=== PATIENT | male | born 1955 | race Caucasian/White ===

== ENCOUNTER 2020-01-29 14:19 | Outpatient (CLI) | payer MEDICARE, SELFPAY ==
--- NOTE | 2020-01-29 15:00 | USCV_ITS ---
Alberto Trujillo Age: 64 Gender: M : 1955 Exam Date: 01/29/2020 15:03 Ordering Phys: Skyler Luna MD (Andy) ([email or web address] [place]) Technologist: Karon Arteaga Exam Location: [facility] [place]ication: CAROTID STENOSIS Risk Factors: Previous Vascular Surgery: Right Brachial BP: / Left Brachial BP: / Right Left Velocity (cm/s) Spectral Plaque Velocity (cm/s) Spectral Plaque Syst/Diast Broadening Syst/Diast Broadening 108.30/6.30 Prox CCA 91.50 / 14.30 97.00/ 9.90 Mid CCA 51.90 / 11.80 92.60/ 12.10 Distal CCA 44.00 / 10.50 58.50/ 8.50 Prox ICA 161.25/ 21.70 40.10/ 9.90 Mid ICA 152.30/ 23.30 79.80/ 12.60 Distal ICA 130.10/ 23.70 97.40 ECA 128.70 0.82 ICA/CCA 3.23 Antegrade Vertebral Antegrade 55.90/ 9.30 cm/s 58.70/ 10.10 cm/s Tri Subclavian Bi 120.9 208.7 0 0 CONCLUSIONS History of bilateral CEA Right ICA stenosis <50%. Left ICA stenosis 50-69%. Normal antegrade Doppler flow noted in the right vertebral artery. Normal antegrade Doppler flow noted in the left vertebral artery. Rafal Harp MD (Electronically Signed) Final Date: 29 January 2020 15:39 S
== END 2020-01-29 14:20 | disposition home or self-care (01) ==
LOC: RADWPI 14:24
PROVIDERS: Family Provider Nurse Practitioner Family; PCP Nurse Practitioner Family; Visit Provider Thoracic Surgery (Cardiothoracic Vascular Surgery)
DX: I65.23 Occlusion and stenosis of bilateral carotid arteries (principal)
CPT/HCPCS: 93880

== ENCOUNTER 2020-07-17 14:57 | Emergency (ER) | payer MEDICARE, MEDICAID, SELFPAY ==
[2020-07-17 15:14] VITALS: BP 148/80; PULSE 60; RESP 18; TEMP 37.1; O2SAT 97; BMI 37.5
--- NOTE | 2020-07-17 15:43 | XRR_ITS ---
PROCEDURE INFORMATION: Exam: XR Chest, 1 View Exam date and time: 07/17/2020 3:44 PM Age: 65 years old Clinical indication: Chest pain; Type not specified; Additional info: Cp TECHNIQUE: Imaging protocol: XR of the chest Views: 1 view. COMPARISON: CR Chest 2 views* [id number] 05/27/2019 9:02 AM FINDINGS: Lungs: No visible active interstitial or alveolar airspace disease. Pleural space: Unremarkable. No pleural effusion. No pneumothorax. Heart/Mediastinum: Cardiomegaly. Arteriosclerosis. Bones/joints: Age-appropriate degenerative disease of the visualized spine. Other findings: Heavy body habitus. XR/XR chest 1V portable [id number] IMPRESSION: No visible radiographic evidence of acute cardiopulmonary process.
--- NOTE | 2020-07-17 17:43 | ECG_ITS ---
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 Measurements Intervals [place] Rate: 70 P: MO: -1 QRS: 17 QRSD: 104 T: 61 QT: 492 QTc: 532 Interpretive Statements ATRIAL FIBRILLATION with PVC's or abberently conducted beats INDETERMINATE AXIS LOW QRS VOLTAGE IN PRECORDIAL LEADS INCOMPLETE RIGHT BUNDLE BRANCH BLOCK MODERATE ST DEPRESSION Compared to ECG 05/27/2019 08:33:11 Indeterminate axis now present Low QRS voltage now present Prolonged QT interval now present ST (T wave) deviation still present Electronically Signed On 07-18-2020 8:49:21 CDT by Evelin Deshpande M.D. [id number]
--- NOTE | 2020-07-17 17:43 | ED_ITS ---
Documented by User: Abeba Kendall MD 07/20/20 12:54 HPI - Chest Pain General: Chief Complaint: Chest Pain Stated Complaint: BACK PAIN, HEART ISSUES Time Seen by Provider: 07/17/20 17:16 History of Present Illness: HPI narrative: This patient is a 65-year-old male who comes in today with chest pain and back pain. He is also got chronic shortness of breath. He said the chest pain and back pain started this morning when he went out to walk his dog. He has had the pain off and on all day. It feels like when he said his prior [place]. He has had multiple stents put in. He was post to have another angiogram but had put it off for various reasons. He is not having chest pain currently during my exam. He has COPD and uses 2 L of oxygen at home daily. MD complaint: chest pain and chest heaviness Pertinent past history: coronary artery disease, prior [place] and [employer] Onset (ago): hour(s) (8) [facility] PFSH: Medical History (Updated 07/17/20 @ 18:53 by Saba Snyder MD) Alcohol abuse Anticoagulant long-term use Atrial fibrillation CAD (coronary artery disease) Cardiomyopathy Carotid stenosis, bilateral CKD (chronic kidney disease) COPD (chronic obstructive pulmonary disease) Dependence on continuous supplemental oxygen Diabetes HTN (hypertension) Obesity Peripheral arterial disease Tobacco abuse Surgical History S/P PTCA (percutaneous transluminal coronary angioplasty) Family History Mother CAD (coronary artery disease) Diabetes Father , AGE 82 CAD (coronary artery disease) Hypertension Social History Smoking and tobacco status: former smoker Quit status (tobacco): has quit using tobacco Former quit date comment: NOV 2019 Alcohol intake: current Alcohol type: beer Household members: spouse Marital status: Physical Exam Const: COMMON NORMALS: no acute distress, patient oriented x3, no limitations and alert GENERAL APPEARANCE: cooperative and comfortable HENMT: HEAD & SCALP: normal to inspection FACE & SINUS: normal facial exam Eye: GENERAL EYE: appearance normal, both eyes and all related structures Neck/C-Spine: COMMON NORMALS: supple, no meningeal signs and no JVD Chest: COMMONS NORMALS: normal inspection of the chest Resp: COMMON NORMALS: normal respiratory effort, No use of accessory muscles and clear to auscultation bilaterally AUSCULTATION: clear to auscultation bilaterally Cardio: COMMON NORMALS: no JVD, regular rate, regular rhythm and No murmurs present (Cardio) RATE: regular rate RHYTHM: regular rhythm GI: COMMON NORMALS: Normal to inspection, nondistended, normoactive bowel sounds present, Soft to palpation and non-tender INSPECTION: Yes normal to inspection AUSCULTATION: Yes normoactive bowel sounds PALPATION: Yes Soft to palpation Back/Pelvis: COMMON NORMALS: thoracic and lumbar spine normal to inspection Extremity: COMMON NORMALS: normal to inspection Neuro: COMMON NORMALS: patient oriented x3, moves all extremities, no focal motor deficits and no sensory deficits noted SENSORIUM/ORIENTATION: Yes alert MENINGEAL SIGNS: Yes no meningeal signs Psych: COMMON NORMALS: mental status grossly normal, cooperative and normal affect Skin: COMMON NORMALS: no rashes or lesions noted and turgor normal GENERAL SKIN EXAM: no rashes or lesions noted and turgor normal Course Vital Signs: Vital signs: Vital Signs Temperature 98.7 F 07/17/20 15:14 Pulse Rate 81 07/17/20 19:08 Respiratory Rate 18 07/17/20 15:14 Blood Pressure 157/89 07/17/20 19:08 Pulse Oximetry 92 07/17/20 19:08 MDM - Chest Pain Lab Data: Labs: Lab Results 07/17/20 07/17/20 Range/Units 17:55 17:55 WBC 8.3 (4.0-10.0) 10^3/ uL RBC 4.28 (4.1-5.3) 10^6/u L Hgb 13.7 (11.7-16.6) g/dL Hct 38.8 L (42.0-52.0) % MCV 90.7 (80-94) fL MCH 32.0 (28.0-34.0) pg MCHC 35.3 (30.0-36.0) g/dL RDW 13.0 (12.1-15.1) % Plt Count 203 (130-400) 10^3/c mm MPV 9.3 (7.4-10.4) fL Neut % (Auto) 83.6 % Lymph % (Auto) 6.9 % Faulkner % (Auto) 8.1 % Eos % (Auto) 0.4 % Baso % (Auto) 0.2 % Neut # (Auto) 6.95 (1.8-7.7) 10^3/u L Lymph # (Auto) 0.6 L (0.8-4.8) 10^3/u L Faulkner # (Auto) 0.7 (0.2-0.9) 10^3/u L Eos # (Auto) 0.0 (0.0-0.8) 10^3/u L Baso # (Auto) 0.0 (0.0-0.1) 10^3/u L Nucleated RBC % (a uto) 0 % Nucleated RBCs # 0.0 /100WBC Troponin T Baselin e 16 H (0-15) ng/L Discharge Plan Discharge Patient Disposition: Left Against Medical Advice Clinical Impression: Chest pain Condition: Stable Prescriptions: No Action warfarin 5 mg tablet 5 mg PO DAILY RF: 0 metoprolol succinate 25 mg tablet extended release 24 hr 25 mg PO DAILY RF: 0 hydralazine 50 mg tablet 50 mg PO TID RF: 0 diltiazem HCl [Taztia XT] 360 mg capsule,extended release 24 hr 360 mg PO DAILY RF: 0 pantoprazole 40 mg tablet,delayed release (DR/EC) 40 mg PO DAILY RF: 0 aspirin [Aspir-81] 81 mg tablet,delayed release (DR/EC) 81 mg PO DAILY RF: 0 nitroglycerin [Nitrostat] 0.4 mg tablet, sublingual 0.4 mg SUBLINGUAL Q5M PRN (Reason: CHEST PAINS) RF: 0 doxazosin 2 mg tablet 2 mg PO DAILY Qty: 90 RF: 3 tamsulosin 0.4 mg capsule 0.4 mg PO BID Qty: 180 RF: 3 triamcinolone acetonide 0.1 % cream 1 applic TOPICAL BID Qty: 453.6 RF: 0 lisinopril 40 mg tablet 40 mg PO DAILY Qty: 90 RF: 0 Spiriva with HandiHaler 18 mcg capsule, w/inhalation device 1 cap INHALATION DAILY Qty: 90 RF: 0 torsemide 20 mg tablet 20 mg PO BID RF: 0 Discharge Orders: Discharge Order (Routine); Ordered 07/17/20 Ordered By: Saba Snyder Referrals: Chantelle Vides FNP [Primary Care Provider] - 1-3 days Discharge Diet: Advance as tolerated Discharge Activity: Resume usual activity Patient Instructions: Chest Pain (ED) Discharge Date/Time: 07/17/20 19:08 Coding Level of Care Code ED Quality Control Lead for Chg Fwd Exam Comprehensive Documented by User: Saba Snyder MD 07/17/20 18:57 HPI - Chest Pain General: Chief Complaint: Chest Pain Stated Complaint: BACK PAIN, HEART ISSUES Time Seen by Provider: 07/17/20 17:16 PFSH ED PFSH: Medical History (Updated 07/17/20 @ 18:53 by Saba Snyder MD) Alcohol abuse Anticoagulant long-term use Atrial fibrillation CAD (coronary artery disease) Cardiomyopathy Carotid stenosis, bilateral CKD (chronic kidney disease) COPD (chronic obstructive pulmonary disease) Dependence on continuous supplemental oxygen Diabetes HTN (hypertension) Obesity Peripheral arterial disease Tobacco abuse Surgical History S/P PTCA (percutaneous transluminal coronary angioplasty) Family History Mother CAD (coronary artery disease) Diabetes Father , AGE 82 CAD (coronary artery disease) Hypertension Social History Smoking and tobacco status: former smoker Quit status (tobacco): has quit using tobacco Former quit date comment: NOV 2019 Alcohol intake: current Alcohol type: beer Household members: spouse Marital status: Course Vital Signs: Vital signs: Vital Signs Temperature 98.7 F 07/17/20 15:14 Pulse Rate 81 07/17/20 19:08 Respiratory Rate 18 07/17/20 15:14 Blood Pressure 157/89 07/17/20 19:08 Pulse Oximetry 92 07/17/20 19:08 MDM - Chest Pain MDM Narrative: Medical decision making narrative: Patient presents here with chest pain that is resolved here. Patient has a strong history and I strongly recommended him staying. Patient after first troponin he states he feels fine and he said the waiting room and does not want to stay here any longer. He states his pain is gone he does not want to be admitted to the hospital. He refuses to stay for 2-hour troponin as well. He has medical decision-making capacity and understands the risk eating a heart attack and . I spoke to his as well and patient still would like to sign AMA. I informed him he is to follow-up with Dr. Carrasco as scheduled next Monday and he is return if his pain worsens or he changes his mind. He understands and agrees to plan. Lab Data: Labs: Lab Results 07/17/20 07/17/20 Range/Units 17:55 17:55 WBC 8.3 (4.0-10.0) 10^3/ uL RBC 4.28 (4.1-5.3) 10^6/u L Hgb 13.7 (11.7-16.6) g/dL Hct 38.8 L (42.0-52.0) % MCV 90.7 (80-94) fL MCH 32.0 (28.0-34.0) pg MCHC 35.3 (30.0-36.0) g/dL RDW 13.0 (12.1-15.1) % Plt Count 203 (130-400) 10^3/c mm MPV 9.3 (7.4-10.4) fL Neut % (Auto) 83.6 % Lymph % (Auto) 6.9 % Fa[place] % (Auto) 8.1 % Eos % (Auto) 0.4 % Baso % (Auto) 0.2 % Neut # (Auto) 6.95 (1.8-7.7) 10^3/u L Lymph # (Auto) 0.6 L (0.8-4.8) 10^3/u L [place]ner # (Auto) 0.7 (0.2-0.9) 10^3/u L Eos # (Auto) 0.0 (0.0-0.8) 10^3/u L Baso # (Auto) 0.0 (0.0-0.1) 10^3/u L Nucleated RBC % (a uto) 0 % Nucleated RBCs # 0.0 /100WBC Troponin T Baselin e 16 H (0-15) ng/L Imaging Data^: CXR: Attestation: I personally reviewed and interpreted this imaging study as follows: Radiologist's impression: [address] [place] [address] XRay Report Signed Patient: Alberto Trujillo JR Unit #: [id number] : 1955 Acct#:[id number] Age/Sex: 65 / M ADM Date: 07/17/20 Loc: ER Room/Bed: Attending Dr: Ordering Provider/Ordering MD: Matty Darden Sr, ETL BI DEVELOPER-NNEKA Date of Service: 07/17/20 Procedure(s): XR chest 1V portable [id number] Accession Number(s): [id number] Report Number: [id number] PROCEDURE INFORMATION: Exam: XR Chest, 1 View Exam date and time: 07/17/2020 3:44 PM Age: 65 years old Clinical indication: Chest pain; Type not specified; Additional info: Cp TECHNIQUE: Imaging protocol: XR of the chest Views: 1 view. COMPARISON: CR Chest 2 views* [id number] 05/27/2019 9:02 AM FINDINGS: Lungs: No visible active interstitial or alveolar airspace disease. Pleural space: Unremarkable. No pleural effusion. No pneumothorax. Heart/Mediastinum: Cardiomegaly. Arteriosclerosis. Bones/joints: Age-appropriate degenerative disease of the visualized spine. EKG Data^: EKG 1: Attestation: I personally reviewed and interpreted this EKG as follows: EKG interpretation date: 07/17/20 EKG interpretation time: 18:25 Interpretation: afib hr [address] or t wave abnormalities Discharge Plan Discharge Patient Disposition: Left Against Medical Advice Clinical Impression: Chest pain Condition: Stable Prescriptions: No Action warfarin 5 mg tablet 5 mg PO DAILY RF: 0 metoprolol succinate 25 mg tablet extended release 24 hr 25 mg PO DAILY RF: 0 hydralazine 50 mg tablet 50 mg PO TID RF: 0 diltiazem HCl [Taztia XT] 360 mg capsule,extended release 24 hr 360 mg PO DAILY RF: 0 pantoprazole 40 mg tablet,delayed release (DR/EC) 40 mg PO DAILY RF: 0 aspirin [Aspir-81] 81 mg tablet,delayed release (DR/EC) 81 mg PO DAILY RF: 0 nitroglycerin [Nitrostat] 0.4 mg tablet, sublingual 0.4 mg SUBLINGUAL Q5M PRN (Reason: CHEST PAINS) RF: 0 doxazosin 2 mg tablet 2 mg PO DAILY Qty: 90 RF: 3 tamsulosin 0.4 mg capsule 0.4 mg PO BID Qty: 180 RF: 3 triamcinolone acetonide 0.1 % cream 1 applic TOPICAL BID Qty: 453.6 RF: 0 lisinopril 40 mg tablet 40 mg PO DAILY Qty: 90 RF: 0 Spiriva with HandiHaler 18 mcg capsule, w/inhalation device 1 cap INHALATION DAILY Qty: 90 RF: 0 torsemide 20 mg tablet 20 mg PO BID RF: 0 Discharge Orders: Discharge Order (Routine); Ordered 07/17/20 Ordered By: Saab Snyder Referrals: Chantelle Vides FNP [Primary Care Provider] - 1-3 days Discharge Diet: Advance as tolerated Discharge Activity: Resume usual activity Patient Instructions: Chest Pain (ED) Discharge Date/Time: 07/17/20 19:08 Coding Level of Care Code ED Quality Control Lead for Lettyg Fwd Exam Comprehensive
[2020-07-17 18:00] VITALS: BP 135/78; PULSE 63; O2SAT 96
[2020-07-17 18:08] LABS: Basophils % 0.2 %; Eosinophils % 0.4 %; Hematocrit 38.8 % (42.0-52.0); Hemoglobin 13.7 g/dL (11.7-16.6); Lymphocytes # 0.6 10^3/uL (0.8-4.8); Lymphocytes % 6.9 %; Mean Corpuscular HGB Conc 35.3 g/dL (30.0-36.0); Mean Corpuscular Volume 90.7 fL (80-94); Mean Platelet Volume 9.3 fL (7.4-10.4); Monocytes # 0.7 10^3/uL (0.2-0.9); Monocytes % 8.1 %; Neutrophils # 6.95 10^3/uL (1.8-7.7); Neutrophils % 83.6 %; Nucleated Red Blood Cells % 0 %; Platelet Count 203 10^3/cmm (130-400); Red Blood Count 4.28 10^6/uL (4.1-5.3); White Blood Count 8.3 10^3/uL (4.0-10.0)
[2020-07-17 18:30] LABS: Troponin(5th) Baseline 16 ng/L (0-15)
[2020-07-17 18:42] VITALS: BP 157/89; PULSE 64; O2SAT 96
[2020-07-17 19:08] VITALS: BP 157/89; PULSE 81; O2SAT 92
== END 2020-07-17 19:08 | disposition left against medical advice (07) ==
PROVIDERS: Nurse Practitioner Family; Emergency Provider Emergency Medicine; Family Provider Nurse Practitioner Family; PCP Nurse Practitioner Family
DX: R07.9 Chest pain, unspecified (principal); Z53.21 Procedure and treatment not carried out due to patient leaving prior to being seen by health care provider; Z79.82 Long term (current) use of aspirin; Z79.01 Long term (current) use of anticoagulants; Z87.891 Personal history of nicotine dependence; I25.10 Atherosclerotic heart disease of native coronary artery without angina pectoris; I48.91 Unspecified atrial fibrillation; J44.9 Chronic obstructive pulmonary disease, unspecified; E11.9 Type 2 diabetes mellitus without complications; I10 Essential (primary) hypertension; Z99.81 Dependence on supplemental oxygen
CPT/HCPCS: 12345; 71045; 84484; 85025; 93005; 99282

== ENCOUNTER 2020-08-20 09:52 | Outpatient (CLI) | payer MEDICARE, MEDICAID, SELFPAY ==
--- NOTE | 2020-08-20 10:15 | US_ITS ---
WS: [id number] Gallbladder and right upper quadrant ultrasound, 08/20/2020 Clinical Data: RUQ tenderness Comparison: None. Findings: The gallbladder shows no sludge or stone. Because the patient ate breakfast, the gallbladder appears small The wall measures 0.3 cm with no pericholecystic fluid. The common bile duct is 0.6 cm and there are no intrahepatic ductal abnormalities. Liver shows no cysts, masses or dilated intrahepatic ducts. The liver measures 20.82 cm and shows fat ty infiltration. The pancreas is not obscured by overlying bowel gas and no cyst, pseudocyst, or evidence of pancreati tis is noted. Right kidney measures 13.6 cm and no cyst, masses or hydronephrosis can be seen. The aorta and inferior vena cava show no vascular abnormalities. US/US gall bladder [id number] Impression: 1. Gallbladder is small because the patient ate breakfast and the gallbladder w all is at the upper limits of normal because of the gallbladder contraction. 2. Hepatomegaly with fatty infiltration of liver.
== END 2020-08-20 09:53 | disposition home or self-care (01) ==
PROVIDERS: PCP Nurse Practitioner Family; Visit Provider Nurse Practitioner Family
DX: R10.811 Right upper quadrant abdominal tenderness (principal); R16.0 Hepatomegaly, not elsewhere classified; K76.0 Fatty (change of) liver, not elsewhere classified
CPT/HCPCS: 76705

== ENCOUNTER → 2020-09-09 10:18 | Outpatient (BNVA) | payer MEDICARE, MEDICAID, SELFPAY | PROVIDERS: PCP Nurse Practitioner Family; Visit Provider Internal Medicine | DX: K70.0 Alcoholic fatty liver (principal); E11.9 Type 2 diabetes mellitus without complications; K75.81 Nonalcoholic steatohepatitis (NASH) | CPT/HCPCS: 80053; 80061; 82105; 83036 ==

== ENCOUNTER → 2020-12-28 11:32 | Outpatient (BNVA) | payer MEDICARE, MEDICAID, SELFPAY | PROVIDERS: PCP Nurse Practitioner Family; Visit Provider Nurse Practitioner Family | DX: E11.9 Type 2 diabetes mellitus without complications (principal); I10 Essential (primary) hypertension | CPT/HCPCS: 80053; 83036 ==

== ENCOUNTER → 2021-02-04 11:16 | Outpatient (BNVA) | payer MEDICARE, MEDICAID, SELFPAY | PROVIDERS: PCP Nurse Practitioner Family; Visit Provider Nurse Practitioner Family | DX: I10 Essential (primary) hypertension (principal); J44.0 Chronic obstructive pulmonary disease with (acute) lower respiratory infection; E87.1 Hypo-osmolality and hyponatremia | CPT/HCPCS: 80053 ==

== ENCOUNTER → 2021-02-24 10:40 | Outpatient (BNVA) | payer MEDICARE, MEDICAID, SELFPAY | PROVIDERS: PCP Nurse Practitioner Family; Visit Provider Internal Medicine | DX: E87.1 Hypo-osmolality and hyponatremia (principal); R06.02 Shortness of breath; R07.9 Chest pain, unspecified | CPT/HCPCS: 80053; 85025; 85610; 87635 ==

== ENCOUNTER 2021-03-05 10:34 | Day surgery (SDC) | payer MEDICARE, MEDICAID, SELFPAY ==
[2021-03-05] VITALS (56 sets, daily range): BP systolic 129–188; BP diastolic 73–114; PULSE 49–102; RESP 9–20; TEMP 36.7–37.1; O2SAT 89–98; BMI 34.7
--- NOTE | 2021-03-05 11:00 | XACV_ITS ---
Exam Room: [facility] Ht: 175 cm Wt: 107 kg BSA: 2.32 m2 Gender: Male : 1955 Any Known Allergies: Other Exam Priority: Routine Procedure(s): Procedure Description: Diagnostic procedure Procedure Description: PCI procedure Procedure Description: Drug Eluting Coronary Stent Procedure Description: PTCA Procedure Description: Coronary Atherectomy Procedure Description: Miscellaneous Procedure Description: ACT Procedure Description: Coronary Angiography Diagnostic Cath Status: Elective Diagnostic Findings * Left Main has no significant disease. * Circumflex has no significant disease. * Right Coronary Artery has patent prior stents. * Proximal to Mid Left Anterior Descending: severe, heavily calcified 90% stenosis, DAVID: 3 flow. * Coronary angiography shows right dominance. PCI Status: Elective PCI Indication: Other Interventional Findings * Procedure details: We engaged left main artery with a EBU 3.5 guide catheter. IV heparin was administered to maintain an ACT above 250 seconds. A 0.014 run-through guidewire was used to cross the stenosis and was placed in distal vessel. We used a [employer] microcatheter to switch the runthrough guidewire to Viper wire. This was followed by performing multiple runs of orbital artrectomy. We then again switched the viper wire to runthrough guidewire through teleport microcatheter. A 2.75x 15mm semi compliant balloon was used to pre dilate the stenosis. This was followed by placement of a 3.5x22mm Resolute gabi ILSA. We then post dilated the stent using a 3.5x12mm NC balloon. At this time final angiogram was performed that showed excellent stent expansion, DAVID-3 flow and no residual stenosis. Guidewire and guide catheter were removed. Patient left the Signal Tester in a stable condition. * Mid Left Anterior Descendin% stenosis treated with a AB TREK 2.75X15 RX BALLOON, DAVID R GABI 3.5X22 ILSA, and DAVID GILL EUPHORA RX [id number] BALLOON. 0% residual stenosis, DAVID: 3 flow. Conclusions 1. There is severe coronary artery disease with severe, heavily calcified proximal to mid LAD stenosis s/p succsessful revascularization with ILSA x 1 after coronary orbital arthrectomy. 2. Mid Left Anterior Descending was treated with a Balloon, Drug Eluting Stent, and Balloon. Recommendations * Admit to CSU. * Aspirin and Plavix for atleast 1 year. * High intensity statin therapy. * Outpatient cardiology follow up. Interventional RX Recommendation: PCI w/o planned CABG Diagnostic RX Recommendation: PCI w/o planned CABG Anticoagulation: Heparin Pressures Phase:Rest AO : 198 / 184 ( 176 ) @ 12:58:00 PM 123 / 107 ( 115 ) @ 1:00:00 PM 167 / 80 ( 68 ) @ 1:03:00 PM 172 / 104 ( 106 ) @ 1:11:00 PM Clinical Evaluation EBL: 5mL-10mL Procedural Details Procedure Consent Obtained. Pre-Procedure Time Out. Identified patient by full name and date of as verbalized by the patient/guarantor. Does the consent match the physician's order: Yes. Accurate & Complete Informed Consent: Yes. Inpatient/Outpatient History & Physical on Chart: Yes. If H&P is completed, is and addenduem needed: No; If yes, is the addendum complete: N/A. Visualize and Verify Site with Patient/Guarantor: N/A. Relevant Radiology Images available: Yes. Pre-op teaching completed and patient verbalized understanding. The risks, benefits, and alternatives of sedation and/or procedure were discussed by physician. The patient agrees to continue. Procedure started. Correct patient, site and procedure confirmed by cath team. Current diagnosis: Chest Pain. PERRLA. Strong, equal hand inspector advanced composite bilaterally. Lungs clear x 5 lobes. IV Site on Arrival: 20 gauge in the left anticubital. IV Fluids: 0.9% NaCl at KVO. 0 mL infused prior to odd job laborer. Pre Procedural Pulses: bilateral dorsalis pedis was 2+. Pre Procedural Pulses: bilateral posterior tibial was 2+. Pre Procedural Pulses: bilateral radial was 3+. Oxygen started at 2liters/min via nasal canula. bilateral groins was prepped with chloroprep then draped in the usual sterile fashion. right radial was prepped with chloroprep then draped in the usual sterile fashion. Physician notified. Sedation being managed by Anesthesia. Baseline sample Acquired. HR: 75 BPM. Equipment: 6F - Radial. [employer] Manifold Kit Model BT 2000. Cardiac Cath Pack. Heparinized Saline (2 units/mL), 1000 mL bag. Physician arrived. Physician scrubbed in. Immediate Pre-Procedure Time Out. Correct Patient: Yes; Correct Procedure: Yes; Correct Site: Yes; Correct Patient Position: Yes; Correct Supplies: Yes; Dried Flammable Prep: Yes; Blood Products Available: No;. Lidocaine 1% infiltrated to the right radial. Arterial access obtained. Radial sheath pulled and TR band placed on patient. Radial site aborted, Will gain femoral access. Lidocaine 1% infiltrated to the right groin. Arterial access obtained with micropuncture set. A 6 czech JR4 catheter in over wire. Multiple views taken of right coronary artery. Catheter out. A 6 czech JL4 catheter in over wire. Multiple views taken of left coronary artery. Dilator in over wire. Glidewire inserted. 6FR sheath exchanged for a new 6FR sheath. Side port of sheath attached to Normal Saline flush at KVO to maintain patency. Guide out. ACT drawn. Results 248 seconds. Therapeutic limits - pre-heparin administration 90-150 seconds and monitoring heparin during a vascular procedure >250 seconds. AP pads placed on patient. 300 cm runthrough inserted. TR band checked. Palpable pulses and no hematoma noted. Runthrough down the LAD. Teleport microcatheter in over the wire. Viperwire inserted into the Distal LAD. Teleport microcatheter out. ACT drawn. Results 375 seconds. Therapeutic limits - pre-heparin administration 90-150 seconds and monitoring heparin during a vascular procedure >250 seconds. Diamondback Atherectomy device inserted. Atherectomy device out. Runthrough inserted. Teleport Microcatheter inserted. Viperwire inserted. Family updated by Judy Rice RN. Athrectomy performed. Athrectomy device out OTW. results checked. Teleport catheter inserted. Viperwire out. Long runthrough wire inserted. Inflation number : 1 A AB TREK 2.75X15 RX BALLOON was prepped and advanced across the Mid LAD , then inflated to 12 ADAMS for 0:20 seconds. Inflation number: 2 The AB TREK 2.75X15 RX BALLOON was reinflated across the Mid LAD, to 12 ADAMS for 0:25 seconds. Balloon out. Inflation Number : 3 A MDT R GABI 3.5X22 ILSA -Lot Number# [id number] was prepped and advanced across the Mid LAD. The stent was deployed at 14 ADAMS for 0:21 seconds. Stent expiration date: 09/23/2022. Stent balloon out over wire. Inflation number : 4 A MDT NC EUPHORA RX [id number] BALLOON was prepped and advanced across the Mid LAD , then inflated to 12 ADAMS for 0:28 seconds. Inflation number: 5 The MDT NC EUPHORA RX [id number] BALLOON was reinflated across the Mid LAD, to 12 ADAMS for 0:25 seconds. Balloon out. Wire out. Guide catheter out. ACT drawn. Results 240 seconds. Therapeutic limits - pre-heparin administration 90-150 seconds and monitoring heparin during a vascular procedure >250 seconds. Vital chart was stopped. Sheath(s) sutured into position with 2-0 silk and sterile 4x4's and Op-site applied over the site. No oozing or signs and symptoms of hematoma noted. Arterial sheath flushed and connected to tranducer and pressure bag with heparinized saline. Post Procedure: Pulses reassessed and unchanged. PERRLA. Strong, equal hand inspector advanced composite bilaterally. No VTE prophylaxis required. Medication's Wasted: Nitro = 49.6 mg. Medication's Wasted: Heparin = 2000 units. Medication's Wasted: Lidocaine 1% = 4 mL. Total IV fluids: 800 mL. Contrast type used: Omnipaque 300 mgI/mL, 500 mL bottle. PCI Indication: New Onset Angina. Post-op diagnosis: CAD. Complications: None. Estimated blood loss: 5mL-10mL. [facility] Clinical Fraility Score: 4: Vulnerable. Signal Tester Indications: Worsening Angina. Chest Pain Symptom Assessment: Typical Angina Symptoms. Cardiovascular Instability: No. Procedure completed. Patient transferred by bed to 1st floor. Access Site Site: Right Radial artery Sheath Size: 6 Fr Hemostasis Success: Unsuccessful Site: Right Femoral artery Sheath Size: 6 Fr Hemostasis Success: Unsuccessful Procedure Medications Start: 12:14 PM Stop: 12:14 PM Medication: Plavix Amount: 600 mg Route: P.O. Start: 1:13 PM Stop: 1:13 PM Medication: Heparin Amount: 8000 units Route: I.V. Start: 1:25 PM Stop: 1:25 PM Medication: Heparin Amount: 1000 units Route: I.V. Start: 1:37 PM Stop: 1:37 PM Medication: Heparin Amount: 1000 units Route: I.V. Start: 1:57 PM Stop: 1:57 PM Medication: Heparin Amount: 1000 units Route: I.V. Start: 2:09 PM Stop: 2:09 PM Medication: Heparin Amount: 1000 units Route: I.V. I, the attending physician, have reviewed and verified all procedure medications. Yes, all medications given per verbal order History/Risk Factors Hypertension: Yes Dyslipidemia: No Peripheral Arterial Disease (PAD): Yes Myocardial Infarction (ID): No Obesity: No Renal Disease: Yes Tobacco Use: Former Prior Interventions PCI: Yes CABG: No Valve Surgery: No Report Signatures Finalized by Davin Gonzalez MD on 03/14/2021 04:24 PM
[2021-03-05] MEDS: diphenhydrAMINE 50 mg Capsule PO (11:40)
--- NOTE | 2021-03-05 12:11 | W.PM.OPSUD ---
Surgery/Procedure H&P Update DATE OF PROCEDURE: March 05, 2021 DATE H&P PERFORMED: 02/08/21 H&P UPDATE INFORMATION: I have reviewed H&P completed within last 30 days, I have examined patient prior to procedure and No changes to prior documentation PREOP DIAGNOSIS: Worsening angina PRIMARY INDICATION FOR PROCEDURE: Worsening angina PLANNED PROCEDURE: Operation Date: 03/05/21 12:00 Proposed Procedures p Cardiac Catheterization(Left) - Davin Gonzalez M.D Possible percutaneous coronary intervention PATIENT REASSESSED PRIOR TO SEDATION, WITH NO CHANGE NOTED: Yes PHYSICAL EXAM: alert, oriented x 3 and clear to auscultation bilaterally AIRWAY EVAL/ANESTHESIA PLAN: ASA IV, Monitored Anesthesia, Local Anesthesia, Risks, benefits & alternatives of sedation and/or procedure discussed and Patient agrees to continue as planned
--- NOTE | 2021-03-05 12:52 | ANES.PREANE2 ---
Pre-Anesthetic Assessment Pre-Anesthetic Assessment: Height/Weight: Height 1.75 m Weight 106.594 kg Temp Pulse Resp BP Pulse Ox 98.7 F 63 18 181/92 97 03/05/21 11:39 03/05/21 11:39 03/05/21 11:39 03/05/21 11:39 03/05/21 11:39 Preop Diagnosis: Worsening angina Proposed Procedure: Operation Date: 03/05/21 12:00 Proposed Procedures p Cardiac Catheterization(Left) - Davin Gonzalez M.D Was Beta Elayne taken within 24 hours: Yes Was Clonidine taken within 24 hours: N/A Social: Social History: Tobacco and No alcohol Exam: Pre-Anes Outpt Exam: alert, oriented x 3 and regular rate & rhythm Airway: Submandibular: WNL Cervical ROM: WNL MP: 2 Dentition: Full Pulmonary: Pulmonary: COPD (Home O2) CV/HEM: CV/HEM: Afib, CAD, CHF (EF 30%), HTN, NC and PVD GI: GI: GERD Metabolic: Metabolic: DM and Morbid obesity Musc/skel: Musc/skel: Lower Back Pain and OA/DJD Anesthetic Plan: ASA status: 4 Anesthesia: MAC Risk of > 500 ml blood loss (7ml/kg in children): No Meds/Allergies Current Medications: Current Medications Generic Name Dose Route Start Last Admin Trade Name Freq PRN Reason Stop Dose Admin Sodium Chloride 1,000 mls @ 50 ml s/hr 03/05/21 11:00 03/05/21 11:40 Sodium Chloride 0.9% IV 03/06/21 06:59 Not Given .Q20H ONE PFSH Anesthesia PFSH: Medical History Alcohol abuse Anticoagulant long-term use Atrial fibrillation CAD (coronary artery disease) Cardiomyopathy Carotid stenosis, bilateral CKD (chronic kidney disease) COPD (chronic obstructive pulmonary disease) Dependence on continuous supplemental oxygen Diabetes Diet-controlled type 2 diabetes mellitus Hepatomegaly HTN (hypertension) Obesity Peripheral arterial disease Tobacco abuse Surgical History S/P PTCA (percutaneous transluminal coronary angioplasty) Family History Mother CAD (coronary artery disease) Diabetes Father , AGE 82 CAD (coronary artery disease) Hypertension Social History Smoking and tobacco status: former smoker Quit status (tobacco): has quit using tobacco Former quit date comment: NOV 2019 Alcohol intake: current Alcohol intake frequency: 3 or more drinks per day Alcohol type: beer Desire information about alcohol rehabilitation?: No Counseling given: Yes Household members: spouse Marital status: Data Anesthesia Cardiac Studies: No Data to Display
--- NOTE | 2021-03-05 15:29 | PC.NURSE ---
patient called nurses station with reports of bleeding from right arm this nurse entered room and found family and patient with towel around site to stop bleeding TR band remains in place call to director geophysical laboratory to obtain tr syringe then called nurses station for second TR band second band placed bleeding controlled Dr. Gonzalez at bedside within a few min verbal orders for 10mg IVP hydralazine to aide in control of high blood pressure
--- NOTE | 2021-03-05 15:45 | ANE.PACU2 ---
Inpatient post-anesthesia follow up: Airway intact: Yes Vital signs: Temperature 98.7 F Pulse Rate 63 Respiratory Rate 18 Blood Pressure 181/92 Pulse Oximetry 97 Oxygen Delivery Me thod Nasal Cannula Oxygen Flow Rate 2 Fraction of Inspir ed Oxygen Hydration adequate: Yes Nausea and vomiting: No Pain level: 1
[2021-03-05] MEDS: hyDRALAzine 20 mg/mL INJ 1 mL 10 MG IVP (15:53)
[2021-03-05] MEDS: metoprolol succinate ER (24 HR) 25 mg Tablet PO (16:16)
[2021-03-05] MEDS: hyDRALAzine 50 mg Tablet PO ×2 (16:16→20:02)
[2021-03-05] MEDS: sodium chloride 0.9% 1,000 ML 50 ML IV (16:48)
[2021-03-05] MEDS: tamsulosin 0.4 mg Capsule PO (17:37)
[2021-03-05 18:35] LABS: Partial Thromboplastin Time 103.6 SECONDS (23.9-36.7)
--- NOTE | 2021-03-05 19:10 | PC.NURSE ---
spoke with Dr Gonzalez to report PTT of 103.6 instructions to repeat PTT at 2000 less than 45 pull sheath please call Dr Gonzalez with any issues with sheath pull also reported patient low heart of 47-60 instructions to obtain EKG if >49 is sustained
[2021-03-05 21:01] LABS: Partial Thromboplastin Time 32.8 SECONDS (23.9-36.7)
[2021-03-05] MEDS: fentaNYL 50 mcg/mL INJ 2mL IVP (21:44)
[2021-03-05] MEDS: ALPRAZolam 0.25 mg Tablet PO (23:26)
[2021-03-06] VITALS (40 sets, daily range): BP systolic 136–171; BP diastolic 68–85; PULSE 43–69; RESP 11–19; TEMP 36.7–36.8; O2SAT 92–97
--- NOTE | 2021-03-06 05:10 | PC.NURSE ---
Around 2158: Patient PTT 32.8. Pulled sheath from right groin. Hemostasis acheived immediately, pressure applied for 20 min. No hematoma. Dressed site with 4x4 and tegaderm. Vitals stable, no c/o of pain or discomfort. Educated patient about activity, site care, and reportable s/s. Patient verbalized understanding of all teaching.
--- NOTE | 2021-03-06 08:22 | PM.SDS ---
Short Stay Summary Providers Date of Admit/Discharge: 03/08/21 Attending Provider: Davin Gonzalez M.D Primary Care Provider: CARMELA Bello Chief Complaint: Chest pain, SOB HPI History of Present Illness 65-year-old man with past medical history of atrial fibrillation, hypertension, ischemic cardiomyopathy, heart failure, diabetes, coronary artery disease with remote intervention, chronic tobacco abuse, chronic alcohol use, COPD, carotid stenosis, peripheral arterial disease, is anticoagulation with warfarin, chronic kidney disease and obesity is here for follow-up. He is dependent long-term on oxygen. Patient has been having significant chest pain symptoms with pressure across the back. Associated with shortness of breath. His activities are severely limited.He had an ER visit with similar complaints but left AMA at that time. Plan is for left heart cath with possible percutaneous coronary intervention with anesthesia support because of patient's back pain and breathing issues Review of Systems Card: Reports: chest pain (pressure going across the back), irregular heart rhythm, edema, swelling of feet/ankles, lightheadedness, pre-syncope, dyspnea on exertion and leg pain with exertion (left leg mostly); Denies: palpitations, syncope or orthopnea Resp: Reports: dyspnea GI: Denies: abdominal pain : Denies: flank pain Skin/Breast: Reports: rash and pruritus Neuro: Reports: weakness in extremities Sarath/Lymph: Reports: easy bruising and easy bleeding Home Meds/Allergies Home Medications and Allergies Home Medications Medication Instructions Recorded Confirmed Type aspirin 81 mg tablet,delayed 81 mg PO DAILY 03/25/20 03/05/21 History release pantoprazole 40 mg tablet,delayed 40 mg PO DAILY 03/25/20 03/05/21 History release Allergies Allergy/AdvReac Type Severity Reaction Status Date / Time Yyngcon-Dct-Ngo Reductase Allergy unknown Verified 02/08/21 14:04 Inhibitor PFSH Acute PFSH: Medical History Alcohol abuse Anticoagulant long-term use Atrial fibrillation CAD (coronary artery disease) Cardiomyopathy Carotid stenosis, bilateral CKD (chronic kidney disease) COPD (chronic obstructive pulmonary disease) Dependence on continuous supplemental oxygen Diabetes Diet-controlled type 2 diabetes mellitus Hepatomegaly HTN (hypertension) Obesity Peripheral arterial disease Tobacco abuse Surgical History S/P PTCA (percutaneous transluminal coronary angioplasty) Family History Mother CAD (coronary artery disease) Diabetes Father , AGE 82 CAD (coronary artery disease) Hypertension Social History Smoking and tobacco status: former smoker Quit status (tobacco): has quit using tobacco Former quit date comment: NOV 2019 Alcohol intake: current Alcohol intake frequency: 3 or more drinks per day Alcohol type: beer Desire information about alcohol rehabilitation?: No Counseling given: Yes Household members: spouse Marital status: Vitals/I&O/Wt Last Vital Signs Temp 98.2 F 03/06/21 07:00 Pulse 60 03/06/21 08:12 Resp 18 03/06/21 08:07 BP 171/85 03/06/21 07:00 Pulse Ox 92 03/06/21 08:07 03/05/21 03/06/21 03/06/21 22:59 06:59 14:59 Intake Total 480 / 480 650 / 1130 Output Total 4400 / 4400 1700 / 6100 Balance -3920 / -3920 -1050 / -4970 Weight last 48 hrs Weight 235 lb Physical Exam Narrative: EXAM NARRATIVE: GENERAL: Patient is alert, awake and oriented x3. [] NECK: No jugular vein distension. [] HEENT: No cyanosis. No icterus. No pallor. [] HEART: Regular S1 and S2. No murmur, rub or gallop. [] LUNGS: Clear to auscultate bilaterally. [] ABDOMEN: Soft, nontender and nondistended. Positive bowel sounds. No guarding, rebound or tenderness. [] CENTRAL NERVOUS SYSTEM: Grossly nonfocal. [] EXTREMITIES: Lower extremities with 1+ edema bilaterally. Pulses palpable in the lower extremities, both dorsalis pedis and posterior tibial. [] Hospital Course Hospital Course 65-year-old man with past medical history of atrial fibrillation, hypertension, ischemic cardiomyopathy, heart failure, diabetes, coronary artery disease with remote intervention, chronic tobacco abuse, chronic alcohol use, COPD, carotid stenosis, peripheral arterial disease, is anticoagulation with warfarin, chronic kidney disease and obesity is here for follow-up. He is dependent long-term on oxygen. Patient has been having significant chest pain symptoms with pressure across the back. Associated with shortness of breath. His activities are severely limited.He had an ER visit with similar complaints but left AMA at that time. Plan is for left heart cath with possible percutaneous coronary intervention with anesthesia support because of patient's back pain and breathing issues Patient underwent coronary angiogram that showed severe, heavily calcified proximal to mid LAD stenosis. He underwent orbital arthrectomy with successful revascularization with drug-eluting stent x1. Patient stayed overnight for observation. His exercise was normal. We down titrated his metoprolol and Cardizem as he was staying bradycardic during the hospitalization. Patient will follow up with cardiology office. Plan is for aspirin, Plavix and Coumadin for 1 week and then will be switched to Plavix and Coumadin (aspirin to be stopped after 1 week). SSS Data Data Completed and Pending: Pending at discharge Category Date Time Status STERILIZATION TECHNICIAN request for service Routin e Exams 03/05/21 11:00 Taken Discharge Plan Discharge Patient Disposition: Home Condition: Stable Prescriptions: New clopidogrel 75 mg Tablet 75 mg PO DAILY Qty: 90 RF: 3 Taztia XT 120 mg capsule,extended release 24 hr 120 mg PO DAILY Qty: 90 RF: 1 Continued pantoprazole 40 mg tablet,delayed release (DR/EC) 40 mg PO DAILY RF: 0 aspirin [Aspir-81] 81 mg tablet,delayed release (DR/EC) 81 mg PO DAILY RF: 0 albuterol sulfate 2.5 mg /3 mL (0.083 %) solution for nebulization 2.5 mg inhalation QID PRN (Reason: shortness of breath or wheezing) Qty: 180 RF: 1 tamsulosin 0.4 mg capsule 0.4 mg PO BID Qty: 180 RF: 3 triamcinolone acetonide 0.1 % cream 1 applic TOPICAL BID Qty: 453.6 RF: 0 warfarin 5 mg tablet See Rx Instructions .ROUTE .COMPLEX Qty: 108 RF: 0 blood sugar diagnostic [OneTouch Ultra Blue Test Strip] Strip See Rx Instructions .ROUTE .COMPLEX Qty: 150 RF: 3 nitroglycerin [Nitrostat] 0.4 mg tablet, sublingual 0.4 mg SUBLINGUAL Q5M PRN (Reason: CHEST PAINS) Qty: 30 RF: 0 Spiriva with HandiHaler 18 mcg capsule, w/inhalation device 1 cap INHALATION DAILY Qty: 90 RF: 1 triamcinolone acetonide 0.1 % lotion 1 applic TOPICAL BID Qty: 60 RF: 0 torsemide 20 mg tablet 20 mg PO DAILY Qty: 30 RF: 0 lisinopril 40 mg tablet 40 mg PO DAILY Qty: 90 RF: 0 doxazosin 2 mg tablet 2 mg PO DAILY Qty: 90 RF: 3 Changed metoprolol succinate 25 mg tablet extended release 24 hr 12.5 mg PO DAILY Qty: 90 RF: 0 hydralazine 50 mg tablet 75 mg PO TID Qty: 0 RF: 0 Discontinued diltiazem HCl [Taztia XT] 360 mg capsule,extended release 24 hr 360 mg PO DAILY Qty: 90 RF: 3 Discharge Orders: Discharge Order (Routine); Ordered 03/06/21 Ordered By: Davin Gonzalez Referrals: Davin Gonzalez M.D [Physician] - 1 month ([facility] will be calling to set up a cardiology followup with Dr. Gonzalez to be seen in 1 month. If you don't hear from them by Monday afternoon, please give them a call. Thank you) Marla Martin FNP [Nurse Practitioner] - 7-10 days ([facility] will be calling to set up a post Procedure followup with CARMELA Dominguez to be seen in 7 to 10 days. If you don't hear from them by Monday afternoon, please give them a call. Thank you) Discharge Diet: Cardiac Discharge Activity: Increase activity as tolerated Patient Instructions: Clopidogrel (By mouth), Left Heart Catheterization (DC), Coronary Angioplasty (DC), Post Angiogram Home Care Instructions Activity Restrictions/Additional Instructions: Please do not lift more than 5 pounds of weight for the next 5 days. Please continue aspirin, Plavix and Coumadin till you see us in the office. At that time we will stop aspirin and continue on plavix and coumadin Attestations Medical Necessity Statement*: Care not expected to cross 2 midnights. Patient presented as outpatient and underwent successful revascularization with ILSA x1 to proximal to mid LAD Time Spent in Patient Care*: greater than 30 min Quality Metrics Clinical Quality Measures: During this hospital stay, did patient experience: None Coding Level of Care Code Acute Video Journalist for Jihan Rea
[2021-03-06] MEDS: aspirin 81 mg EC Tablet PO (08:39)
[2021-03-06] MEDS: lisinopril 20 mg Tablet 40 MG PO (08:39)
[2021-03-06] MEDS: TORSEmide 20 mg Tablet PO (08:41)
[2021-03-06] MEDS: hyDRALAzine 50 mg Tablet PO (08:41)
[2021-03-06] MEDS: tamsulosin 0.4 mg Capsule PO (08:42)
[2021-03-06] MEDS: pantoprazole DR 40 mg Tablet PO (08:42)
[2021-03-06] MEDS: doxazosin 4 mg Tablet 2 MG PO (08:42)
[2021-03-06] MEDS: clopidogrel 75 mg Tablet PO (08:45)
--- NOTE | 2021-03-06 10:36 | PC.NURSE ---
Patient education provided, medications sent to pharmacy. Patient has no questions or concerns. IV removed, VS stable, patient wheeled out to ER exit via wheelchair.
== END 2021-03-06 10:38 | disposition home or self-care (01) ==
LOC: CCL 10:45 → CSU 12:12
PROVIDERS: PCP Nurse Practitioner Family; Visit Provider Internal Medicine
DX: I25.10 Atherosclerotic heart disease of native coronary artery without angina pectoris (principal); I48.91 Unspecified atrial fibrillation; F17.210 Nicotine dependence, cigarettes, uncomplicated; J44.9 Chronic obstructive pulmonary disease, unspecified; Z79.01 Long term (current) use of anticoagulants; Z79.82 Long term (current) use of aspirin; E11.22 Type 2 diabetes mellitus with diabetic chronic kidney disease; I13.0 Hypertensive heart and chronic kidney disease with heart failure and stage 1 through stage 4 chronic kidney disease, or unspecified chronic kidney disease; N18.9 Chronic kidney disease, unspecified; I50.9 Heart failure, unspecified; E66.9 Obesity, unspecified; Z68.34 Body mass index [BMI] 34.0-34.9, adult; Z82.49 Family history of ischemic heart disease and other diseases of the circulatory system; Z99.81 Dependence on supplemental oxygen; I25.2 Old myocardial infarction; K21.9 Gastro-esophageal reflux disease without esophagitis; M19.90 Unspecified osteoarthritis, unspecified site
CPT/HCPCS: 36415; 85347; 85730; 94640; C1724; C1725; C1769; C1874; C1887; C1894; C9602; J0360; J1644; J2250; J2370; J2405; J2704; J3010; J3490; J7030; J7611; Q0163; Q9967

== ENCOUNTER → 2021-03-11 08:59 | Outpatient (BNVA) | payer MEDICARE, MEDICAID, SELFPAY | PROVIDERS: PCP Nurse Practitioner Family; Visit Provider Nurse Practitioner Family | DX: I25.10 Atherosclerotic heart disease of native coronary artery without angina pectoris (principal); Z95.5 Presence of coronary angioplasty implant and graft | CPT/HCPCS: 80048 ==

== ENCOUNTER → 2021-10-27 11:09 | Outpatient (BNVA) | payer MEDICARE, MEDICAID, SELFPAY | PROVIDERS: PCP Nurse Practitioner Family; Visit Provider Nurse Practitioner Family | DX: E11.9 Type 2 diabetes mellitus without complications (principal); I10 Essential (primary) hypertension; Z79.01 Long term (current) use of anticoagulants; N40.1 Benign prostatic hyperplasia with lower urinary tract symptoms | CPT/HCPCS: 80053; 83036; 85025 ==

== ENCOUNTER 2021-12-10 00:02 | Inpatient (IN) | payer MEDICARE, MEDICAID, SELFPAY ==
[2021-12-10] VITALS (18 sets, daily range): BP systolic 138–201; BP diastolic 68–93; PULSE 62–90; RESP 14–24; TEMP 36.3–36.9; O2SAT 93–100; BMI 38.6; BMI 38.1
--- NOTE | 2021-12-10 | XR_ITS ---
WS: [id number] XR femur RT min 2V* [id number] REASON FOR EXAM: orif right femur FINDINGS: Lateral plate, screw, and wire loop fixation of periprosthetic fracture in the proximal femur with di splaced lesser trochanter fragment. Previous and current surgical appliances are in proper position and alignment. Fracture fragments are in proper position and alignment. XR/XR femur RT min 2V* [id number] IMPRESSION: Fixation of periprosthetic fracture proximal right femur as above.
--- NOTE | 2021-12-10 | SCC_ITS ---
Procedure done: ORIF proximal femur fracture 92.4 seconds of fluoroscopic guidance, for a cumulative dose of 21.59 mGy, was provided to Dr. Clark by the radiology department. C-arm images of the RIGHT hip were saved for the patient's permanent record. [facility]
--- NOTE | 2021-12-10 00:06 | ED_ITS ---
HPI - Fall General: Chief Complaint: Fall Stated Complaint: right hip pain Time Seen by Provider: 12/10/21 00:06 History of Present Illness: 66-year-old male patient was reported having a fall at home and now has complaints of right hip pain. Patient called EMS for assistance had difficulty standing due to pain. Patient reports he was going to use a urinal when he slipped and fell. Patient reports falling occasionally. Patient has had both hips replaced. Patient has a history of diabetes mellitus, peripheral artery disease, tobacco abuse, chronic kidney disease, COPD, chronic oxygen use, atrial fibrillation, obesity. MD complaint: fall Onset (ago): hour(s) Fall from: standing Fall witnessed: no Place fall occurred: home Loss of consciousness: None Length of LOC: minutes(s) Prolonged down time: no Symptoms prior to fall: none Context: tripped/slipped Location of injury - extremities: Right: thigh Severity: moderate Quality: aching Review of Systems General: Reports: 10 or more systems reviewed and unremarkable except in HPI and below Musc: Reports: joint pain (Right hip injury from fall) [facility] ED PFSH: Medical History Alcohol abuse Anticoagulant long-term use Atrial fibrillation CAD (coronary artery disease) Cardiomyopathy Carotid stenosis, bilateral CKD (chronic kidney disease) COPD (chronic obstructive pulmonary disease) Dependence on continuous supplemental oxygen Diabetes Diet-controlled type 2 diabetes mellitus Hepatomegaly HTN (hypertension) Obesity Peripheral arterial disease Tobacco abuse Surgical History Hx of heart artery stent S/P PTCA (percutaneous transluminal coronary angioplasty) Family History Mother CAD (coronary artery disease) Diabetes Father , AGE 82 CAD (coronary artery disease) Hypertension Social History Quit status (tobacco): has quit using tobacco Former quit date comment: NOV 2019 Alcohol intake: current Alcohol intake frequency: 3 or more drinks per day Alcohol type: beer Desire information about alcohol rehabilitation?: No Counseling given: Yes Household members: spouse Marital status: Physical Exam Const: COMMON NORMALS: alert HENMT: COMMON NORMALS: atraumatic HEAD & SCALP: atraumatic Neck/C-Spine: COMMON NORMALS: full ROM Resp: COMMON NORMALS: normal respiratory effort and clear to auscultation bilaterally AUSCULTATION: clear to auscultation bilaterally Cardio: COMMON NORMALS: regular rate and regular rhythm RATE: regular rate RHYTHM: regular rhythm Extremity: RIGHT LOWER EXTREMITY: Yes hip joint (Lateral hip tenderness, no shortening or external rotation) Right hip: Yes inspection, Yes palpation, Yes ROM and Yes neurovascular exam OTHER: Guarded movement of right lower extremity Neuro: SENSORIUM/ORIENTATION: Yes alert Psych: COMMON NORMALS: cooperative Skin: COMMON NORMALS: no rashes or lesions noted GENERAL SKIN EXAM: no rashes or lesions noted Course ED course: 0024, abnormal x-ray was noted and reviewed with Dr. Snyder. He recommended patient be admitted for orthopedic surgical services, he will notify Dr. Clark. Vital Signs: Vital signs: Vital Signs Temperature 98.2 F 12/10/21 00:04 Pulse Rate 90 12/10/21 00:04 Respiratory Rate 18 12/10/21 00:04 Blood Pressure 160/84 12/10/21 00:04 Pulse Oximetry 98 12/10/21 01:11 MDM - Fall Medical Decision Making 66-year-old male patient comes in with injury to the right hip. Patient got up to go to the bathroom and slipped and fell injuring his right hip. Patient has difficulty standing due to pain on the right hip. On exam patient is unable to lift right leg off the bed. No external rotation or shortening is noted to the leg. Distal pulses are intact. Differential diagnosis includes hip fracture, hip prosthesis dislocation, contusion. X-ray noted fracture of the proximal femur at the placement of the prosthesis in the femur. I reviewed this with Dr. Snyder who state patient will need to be admitted for orthopedic services. Lab Data : 12/10/21 01:00 12/10/21 01:00 Radiology Impressions Hip/Pelvis X-Ray 12/10/21 00:09 IMPRESSION: Periprosthetic fracture in the proximal right femur. No dislocation. Chest X-Ray 12/10/21 00:35 IMPRESSION: 1. No acute findings. 2. Cardiac enlargement. Laboratory Results WBC 11.1 10^3/uL (4.0-10.0) H 12/10/21 01:00 RBC 3.90 10^6/uL (4.1-5.3) L 12/10/21 01:00 Hgb 12.5 g/dL (11.7-16.6) 12/10/21 01:00 Hct 36.1 % (42.0-52.0) L 12/10/21 01:00 MCV 92.6 fl (80-94) 12/10/21 01:00 MCH 32.1 pg (28.0-34.0) 12/10/21 01:00 MCHC 34.6 g/dL (30.0-36.0) 12/10/21 01:00 RDW 12.9 % (12.1-15.1) 12/10/21 01:00 Plt Count 214 10^3/cmm (130-400) 12/10/21 01:00 MPV 8.9 fL (7.4-10.4) 12/10/21 01:00 Neut % (Auto) 87.7 % 12/10/21 01:00 Lymph % (Auto) 4.3 % 12/10/21 01:00 [place] % (Auto) 6.9 % 12/10/21 01:00 Eos % (Auto) 0.4 % 12/10/21 01:00 Baso % (Auto) 0.2 % 12/10/21 01:00 Neut # (Auto) 9.76 10^3/uL (1.8-7.7) H 12/10/21 01:00 Lymph # (Auto) 0.5 10^3/uL (0.8-4.8) L 12/10/21 01:00 [place] # (Auto) 0.8 10^3/uL (0.2-0.9) 12/10/21 01:00 Eos # (Auto) 0.0 10^3/uL (0.0-0.8) 12/10/21 01:00 Baso # (Auto) 0.0 10^3/uL (0.0-0.1) 12/10/21 01:00 Nucleated RBC % (auto) 0 % 12/10/21 01:00 Nucleated RBCs # 0.0 /100WBC 12/10/21 01:00 SARS-CoV-2 Ag (Rapid) Negative (Negative) 12/10/21 00:46 Discharge Plan Discharge Patient Disposition: Admitted As Inpatient Clinical Impression: Closed fracture of right hip Qualifiers: Encounter type: initial encounter Qualified Code(s): S72.001A - Fracture of unspecified part of neck of right femur, initial encounter for closed fracture Condition: Stable Coding Level of Care Code ED Network Professional for Jihan Fwharrison Exam Comprehensive
--- NOTE | 2021-12-10 00:09 | XRR_ITS ---
PROCEDURE INFORMATION: Exam: XR Right Hip Exam date and time: 12/10/2021 12:09 AM Age: 66 years old Clinical indication: Injury or trauma; Fall; Blunt trauma (contusions or hematomas); Right; Prior surgery; Surgery type: Bilat thr. ; Patient HX: Patient fell at home. C/O RT hip pain with inability to bear weight. Leg lying in full external rotation. ; Additional info: Fall, include pelvis TECHNIQUE: Imaging protocol: XR Right hip. Views: 1 view hip with pelvis when performed. COMPARISON: No relevant prior studies available. FINDINGS: Bones/joints: There is a comminuted periprosthetic fracture in the proximal right femur with minimal displacement of the lesser trochanter medially and greater trochanter and a portion of the proximal diaphysis laterally relative to the femoral component of the prosthesis. Prosthetic components are intact and well aligned. The left hip prosthesis is unremarkable. The bony pelvis is intact. The sacrum and lower lumbar spine are obscured. Soft tissues: Unremarkable. XR/XR hip RT 2-3V wo/w pel* [id number] IMPRESSION: Periprosthetic fracture in the proximal right femur. No dislocation.
--- NOTE | 2021-12-10 00:35 | ECG_ITS ---
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[id number] Requested By: Skyler Aguilar Order Number: [id number] Tho MD: JASSI DIAZ Measurements Intervals [place] Rate: 76 P: IL: QRS: -54 QRSD: 137 T: 18 QT: 421 QTc: 476 Interpretive Statements ATRIAL FIBRILLATION RIGHT BUNDLE BRANCH BLOCK [120+ ms QRS DURATION, UPRIGHT V1, 40+ ms S IN I/aVL/V4/V5/V6] LEFT ANTERIOR FASCICULAR BLOCK [QRS AXIS <= -45, QR IN I, RS IN II] POSSIBLE ANTERIOR MYOCARDIAL INFARCTION , OF INDETERMINATE AGE [30 ms Q WAVE IN V3/V4, OR R < 0.2 mV IN V4] INFERIOR MYOCARDIAL INFARCTION , PROBABLY OLD [40+ ms Q WAVE AND/OR ST/T ABNORMALITY IN II/aVF] Compared to ECG 07/17/2020 18:25:12 Right bundle-branch block now present Left anterior fascicular block now present Myocardial infarct finding now present Indeterminate axis no longer present Incomplete right bundle-branch block no longer present ST (T wave) deviation no longer present Electronically Signed On 12-10-2021 22:55:32 PROCESS COORDINATOR by JASSI DIAZ [email or web address]
--- NOTE | 2021-12-10 00:35 | XRR_ITS ---
PROCEDURE INFORMATION: Exam: XR Chest Exam date and time: 12/10/2021 12:35 AM Age: 66 years old Clinical indication: Injury or trauma; Fall; Blunt trauma (contusions or hematomas); Prior surgery; Surgery type: Coronary stents x 2; Patient HX: Pre op for hip fracture. ; Additional info: Fall, hip fracture TECHNIQUE: Imaging protocol: XR of the chest. Views: 1 view. COMPARISON: CR XR chest 1V portable [id number] 07/17/2020 5:02 PM FINDINGS: Lungs: Lungs are clear. Pleural spaces: There is no pleural effusion or pneumothorax. Heart/Mediastinum: There is moderate enlargement of the cardiac silhouette. Bones/joints: Bones are unremarkable. XR/XR chest 1V portable [id number] IMPRESSION: 1. No acute findings. 2. Cardiac enlargement.
[2021-12-10 01:09] LABS: Basophils % 0.2 %; Eosinophils % 0.4 %; Hematocrit 36.1 % (42.0-52.0); Hemoglobin 12.5 g/dL (11.7-16.6); Lymphocytes # 0.5 10^3/uL (0.8-4.8); Lymphocytes % 4.3 %; Mean Corpuscular HGB Conc 34.6 g/dL (30.0-36.0); Mean Corpuscular Hemoglobin 32.1 pg (28.0-34.0); Mean Corpuscular Volume 92.6 fl (80-94); Mean Platelet Volume 8.9 fL (7.4-10.4); Monocytes # 0.8 10^3/uL (0.2-0.9); Monocytes % 6.9 %; Neutrophils # 9.76 10^3/uL (1.8-7.7); Neutrophils % 87.7 %; Nucleated Red Blood Cells % 0 %; Platelet Count 214 10^3/cmm (130-400); Red Cell Distribution Width 12.9 % (12.1-15.1); White Blood Count 11.1 10^3/uL (4.0-10.0)
[2021-12-10 01:11] LABS: SARS Covid-2 Antigen Negative (Negative)
[2021-12-10 01:29] LABS: Alanine Aminotransferase 12 U/L (0-41); Albumin Level 4.2 g/dL (3.5-5.2); Alkaline Phosphatase 82 IU/L (40-130); Anion Gap 17.8 (5-19); Aspartate Amino Transferase 21 U/L (0-40); Blood Urea Nitrogen 11 mg/dL (8-23); Carbon Dioxide 28 mmol/L (22-29); Chloride 84 mmol/L (98-107); Globulin 2.2 g/dL (1.3-4.6); Glomerular Filtration Rate 166.9 mL/min (90-130); Glucose 126 mg/dL (65-115); Osmolality Calculated 263 mOsm/kg (285-295); Potassium 3.8 mmol/L (3.5-5.1); Sodium 126 mmol/L (136-145); Total Bilirubin 0.5 mg/dL (0.15-1.2); Total Protein 6.4 g/dL (6.6-8.7)
--- NOTE | 2021-12-10 06:36 | PM.HP ---
Providers/Chief Complaint Admitting Physician: Josh Wei MD Primary Care Provider: CARMELA Bello Chief Complaint: right hip pain History of Present Illness Alberto Trujillo Jr is a 66 year old male with a past medical history of history of CAD status post stenting x1 to LAD 03/18/2021, left carotid artery stenosis status post endarterectomy, atrial fibrillation on Coumadin, hypertension, ischemic cardiomyopathy, systolic and diastolic heart failure, ofn-yjbweyp-nqzdgvyen type 2 diabetes mellitus, chronic tobacco abuse, chronic alcohol abuse, COPD on home oxygen peripheral arterial disease, CKD, obesity, who presents [facility] for a fall. Patient tells that he has a history of bilateral hip replacements, severe peripheral arterial disease, severe paresthesias from the peripheral artery disease, he is getting up to use the bathroom, he is getting ready to urinate, when he slipped and fell, denies any lightheadedness, no dizziness, no strokelike symptoms, no chest pain, no shortness of breath. Patient's last alcohol drink was morning. Patient was found to have a right periprosthetic hip fracture. Patient does report chronic neck pain, no neck trauma, no back trauma with his falls. Review of Systems Const: Denies: fever(s) Eyes: Denies: change in vision ENMT: Denies: nasal congestion Resp: Denies: dyspnea or non-productive cough GI: Denies: abdominal pain, nausea, vomiting, hematemesis, diarrhea or constipation : Denies: flank pain, dysuria or urinary frequency Musc: Denies: back pain Skin/Breast: Denies: rash Neuro: Denies: headache(s), dizziness or vertigo Medications/Allergies Home Medications Medication Instructions Recorded Confirmed Last Taken Type pantoprazole 40 mg tablet,delayed 40 mg PO BID 03/25/20 12/10/21 12/09/21 22:00 History release albuterol sulfate 2.5 mg (3 mL) INHALATION QID PRN 09/29/20 12/10/21 03/05/21 06:00 Rx #180 ml blood sugar diagnostic (OneTouch See Rx Instructions .ROUTE 10/08/20 10/27/21 Unknown Rx Ultra Blue Test Strip) .COMPLEX #150 strip tiotropium bromide 18 mcg capsule 1 cap INHALATION DAILY #90 inh 11/13/20 10/27/21 Unknown Rx with inhalation device (Spiriva with HandiHaler) hydralazine 50 mg tablet 75 mg PO TID #0 tab 03/06/21 10/27/21 03/05/21 06:00 Rx clopidogrel 75 mg tablet (Plavix) 75 mg PO DAILY #90 tab 04/05/21 12/10/21 12/09/21 06:00 Rx hydralazine 100 mg tablet 100 mg PO TID #270 tab 04/05/21 10/27/21 Unknown Rx metoprolol succinate 25 mg 12.5 mg PO DAILY #45 tab 05/07/21 10/27/21 Unknown Rx tablet,extended release 24 hr diltiazem HCl 120 mg capsule,24 120 mg PO DAILY #90 cap 05/25/21 10/27/21 Unknown Rx hr,extended release (Taztia XT) nystatin 100,000 unit/mL oral 500,000 unit (5 mL) BUCCAL TID 06/02/21 12/10/21 Unknown Rx suspension #200 ml torsemide 20 mg tablet See Rx Instructions .ROUTE 08/10/21 10/27/21 Unknown Rx .COMPLEX #90 tab lisinopril 40 mg tablet See Rx Instructions .ROUTE 10/15/21 12/10/21 12/09/21 06:00 Rx .COMPLEX #90 tab warfarin 5 mg tablet See Rx Instructions .ROUTE 10/18/21 12/10/21 12/08/21 22:00 Rx .COMPLEX #108 tab tamsulosin 0.4 mg capsule See Rx Instructions .ROUTE 10/27/21 12/10/21 12/09/21 22:00 Rx .COMPLEX #120 cap nitroglycerin 0.4 mg sublingual 0.4 mg SUBLINGUAL Q5M PRN #30 tab 10/28/21 12/10/21 Unknown Rx tablet (Nitrostat) triamcinolone acetonide 0.1 % 1 applic TOPICAL BID #60 ml 11/01/21 Unknown Rx lotion triamcinolone acetonide 0.1 % See Rx Instructions .ROUTE 11/23/21 Unknown Rx topical cream .COMPLEX #454 g Allergies Allergy/AdvReac Type Severity Reaction Status Date / Time Dutfwnd-DBQ-VhO Reductase Allergy unknown Verified 12/10/21 00:16 Inhibitor [Llruwzz-Abd-Msk Reductase Inhibitor] PFSH Acute PFSH: Medical History (Updated 12/10/21 @ 06:44 by Josh Wei MD) Alcohol abuse Anticoagulant long-term use Atrial fibrillation BPH (benign prostatic hyperplasia) BPH with obstruction/lower urinary tract symptoms CAD (coronary artery disease) Cardiomyopathy Carotid stenosis, bilateral Chronic prostatitis CKD (chronic kidney disease) COPD (chronic obstructive pulmonary disease) Dependence on continuous supplemental oxygen Diabetes Diet-controlled type 2 diabetes mellitus Hepatomegaly HTN (hypertension) Incomplete emptying of bladder Obesity Peripheral arterial disease Tobacco abuse Surgical History (Updated 12/10/21 @ 06:44 by Josh Wei MD) Hx of heart artery stent S/P carotid endarterectomy S/P hip replacement S/P PTCA (percutaneous transluminal coronary angioplasty) Family History Mother CAD (coronary artery disease) Diabetes Father , AGE 82 CAD (coronary artery disease) Hypertension Social History Quit status (tobacco): has quit using tobacco Former quit date comment: NOV 2019 Alcohol intake: current Alcohol intake frequency: 3 or more drinks per day Alcohol type: beer Desire information about alcohol rehabilitation?: No Counseling given: Yes Household members: spouse Marital status: Vitals/I&O/Wt Last Vital Signs Temp 98.2 F 12/10/21 00:04 Pulse 90 12/10/21 00:04 Resp 18 12/10/21 00:04 BP 160/84 12/10/21 00:04 Pulse Ox 98 12/10/21 01:11 12/09/21 12/09/21 12/10/21 14:59 22:59 06:59 Intake Total 0 / 0 Output Total 700 / 700 Balance -700 / -700 Weight last 48 hrs Weight 107.275 kg Weight 105.233 kg Physical Exam Const: COMMON NORMALS: no acute distress and patient oriented x3 HENMT: COMMON NORMALS: normocephalic HEAD & SCALP: normocephalic Neck/C-Spine: OTHER: Neck pain with range of motion Resp: COMMON NORMALS: normal respiratory effort, No retractions, No use of accessory muscles and clear to auscultation bilaterally AUSCULTATION: clear to auscultation bilaterally Cardio: COMMON NORMALS: regular rate, regular rhythm, S1 normal heart sound present and S2 normal heart sound present RATE: regular rate RHYTHM: regular rhythm HEART SOUNDS: S1 normal heart sound present and S2 normal heart sound present GI: COMMON NORMALS: Normal to inspection, nondistended, normoactive bowel sounds present, Soft to palpation, non-tender, No hepatosplenomegaly present, no masses and no bruits PALPATION: Yes Soft to palpation Extremity: COMMON NORMALS: no calf tenderness and no pedal edema Neuro: COMMON NORMALS: patient oriented x3 Psych: COMMON NORMALS: mental status grossly normal Urinary Catheter Management: Alberts: Cath Placed During This Visit: yes Reason for Continuing Indwelling Catheter: Required Immobilization for Trauma or Surgery or Anesthesia Urinary Catheter Date of Insertion: 12/10/21 Urinary Catheter Time of Insertion: 00:48 Data : 12/10/21 01:00 12/10/21 01:00 A&P Assessment and plan (1) Periprosthetic hip fracture: Status: Acute (2) Chronic hyponatremia: Status: Acute (3) Anticoagulant long-term use: Status: Acute (4) CKD (chronic kidney disease): Status: Acute (5) Diabetes: Status: Acute Qualifiers: Diabetes mellitus type: type 2 Diabetes mellitus joint terminal attack controller insulin use: without joint terminal attack controller use Diabetes mellitus complication status: without complication Qualified Code(s): E11.9 - Type 2 diabetes mellitus without complications (6) HTN (hypertension): Status: Acute Qualifiers: Hypertension type: primary hypertension Qualified Code(s): I10 - Essential (primary) hypertension (7) Cardiomyopathy: Status: Acute (8) S/P PTCA (percutaneous transluminal coronary angioplasty): Status: Acute (9) Alcohol abuse: Status: Acute (10) COPD (chronic obstructive pulmonary disease): Status: Acute (11) Carotid stenosis, bilateral: Status: Acute Plan Periprosthetic fracture in the proximal right femur -Dr. Clark on consult -N.p.o. -IV fluids -Dilaudid for pain control -Patient is on Coumadin, on Plavix, INR has not been obtained, will await INR -Coumadin, Plavix on hold -UA pending -Serial troponins, serial EKGs pending -Telemetry monitoring -Full code -SCDs for DVT prophylaxis, Coumadin currently on hold and plans for surgery chronic hyponatremia -Serum sodium 126 -Serum sodium anywhere between 1 20-1 33 -Likely secondary to chronic alcoholism -Continue to monitor Alcohol abuse -Monitor for alcohol withdrawal Hypertension -Need to clarify hydralazine dose with pharmacy as there is 2 doses GERD -Protonix 40 IV twice daily Ischemic cardiomyopathy -Looks euvolemic -Hold off on diuretic therapy atrial fibrillation -INR pending -Coumadin on hold -Continue diltiazem COPD, on home oxygen History of hypercarbia, obtain ABG, monitor for CO2 retention after surgery Attestations Medical Necessity Statement*: Patient requires hospitalization, inpatient, greater than 2 midnights, periprosthetic hip fracture, hyponatremia Coding Level of Care Code Acute 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 Technician for g Fwd Diagnoses Periprosthetic hip fracture M97.8XXA; Z96.649 Chronic hyponatremia E87.1 Anticoagulant long-term use Z79.01 CKD (chronic kidney disease) N18.9 Diabetes E11.9 Diabetes mellitus type: type 2 Diabetes mellitus joint terminal attack controller insulin use: without residential use Diabetes mellitus complication status: without complication HTN (hypertension) I10 Hypertension type: primary hypertension Cardiomyopathy I42.9 S/P PTCA (percutaneous transluminal coronary angioplasty) Z98.61 Alcohol abuse F10.10 COPD (chronic obstructive pulmonary disease) J44.9 Carotid stenosis, bilateral I65.23
[2021-12-10] MEDS: HYDROmorphone 1 mg/mL INJ 1 mL IVP ×2 (07:32→22:22)
[2021-12-10] MEDS: pantoprazole 40 mg SDV IVP (07:32)
[2021-12-10 07:43] LABS: Estmated Average Glucose 100; Hemoglobin A1C 5.1 % (4.0-6.0); INR 1.69 (0.8-1.2)
[2021-12-10 07:51] LABS: Troponin(5th) Baseline 18 ng/L (0-15)
[2021-12-10 07:53] LABS: Lipase 20 U/L (13-60); Magnesium 1.1 mg/dL (1.7-2.3)
[2021-12-10 07:56] LABS: Alcohol Level < 10 mg/dL (0-10)
[2021-12-10 07:58] LABS: Chol HDL Ratio 2.56 mg/dL (1.0-5.00); Cholesterol 228 mg/dL (0-200); Creatine Phosphokinase 95 U/L (39-308); HDL Cholesterol 89 mg/dL (60-100); LDL Cholesterol Calculated 130 mg/dL (50-129); LDL HDL Ratio 1.46 RATIO (0.00-3.22); NT Pro B Type Natriuretic Pept 520 pg/mL (0-125); Triglycerides 45 mg/dL (0-150)
[2021-12-10] MEDS: folic acid 1 mg Tablet PO (08:10)
[2021-12-10] MEDS: thiamine 100 mg Tablet PO (08:10)
[2021-12-10] MEDS: metoprolol succinate ER (24 HR) 25 mg Tablet 12.5 MG PO (08:10)
[2021-12-10] MEDS: multivitamin therapeutic Tablet 1 TAB PO (08:11)
[2021-12-10] MEDS: tamsulosin 0.4 mg Capsule PO (08:11)
[2021-12-10] MEDS: hyDRALAzine 50 mg Tablet 75 MG PO ×2 (08:11→21:18)
[2021-12-10] MEDS: dilTIAZem ER (24HR) 120 mg Capsule PO (08:11)
[2021-12-10] MEDS: dextrose 5%-sod chloride 0.9% 1,000 ML 75 ML IV (08:12)
--- NOTE | 2021-12-10 08:13 | P.CONIM_ITS ---
Providers/Reason For Consult Consulting Physician/Specialty*: hospitalist Reason for Consult*: right melissa prosthetic hip fracture Attending Physician: Lamont Valiente MD Primary Care Provider: CARMELA Bello History of Present Illness History of Present Illness Alberto Trujillo Jr is a 66 year old male presents [facility] for a fall.? Patient tells that he has a history of bilateral hip replacements, severe peripheral arterial disease, severe paresthesias from the peripheral artery disease, he is getting up to use the bathroom, he is getting ready to urinate, when he slipped and fell, denies any lightheadedness, no dizziness, no strokelike symptoms, no chest pain, no shortness of breath.? Patient's last alcohol drink was morning.? Patient was found to have a right periprosthetic hip fracture. Review of Systems Const: Denies: fever(s) Eyes: Denies: change in vision ENMT: Denies: nasal congestion Resp: Denies: dyspnea or non-productive cough GI: Denies: abdominal pain, nausea, vomiting, hematemesis, diarrhea or constipation : Denies: flank pain, dysuria or urinary frequency Musc: Denies: back pain Skin/Breast: Denies: rash Neuro: Denies: headache(s), dizziness or vertigo Medications/Allergies Home Medications Medication Instructions Recorded Confirmed Last Taken Type pantoprazole 40 mg tablet,delayed 40 mg PO BID 03/25/20 12/10/21 12/09/21 22:00 History release albuterol sulfate 2.5 mg (3 mL) INHALATION QID PRN 09/29/20 12/10/21 03/05/21 06:00 Rx #180 ml blood sugar diagnostic (OneTouch See Rx Instructions .ROUTE 10/08/20 10/27/21 Unknown Rx Ultra Blue Test Strip) .COMPLEX #150 strip tiotropium bromide 18 mcg capsule 1 cap INHALATION DAILY #90 inh 11/13/20 10/27/21 Unknown Rx with inhalation device (Spiriva with HandiHaler) hydralazine 50 mg tablet 75 mg PO TID #0 tab 03/06/21 10/27/21 03/05/21 06:00 Rx clopidogrel 75 mg tablet (Plavix) 75 mg PO DAILY #90 tab 04/05/21 12/10/21 12/09/21 06:00 Rx hydralazine 100 mg tablet 100 mg PO TID #270 tab 04/05/21 10/27/21 Unknown Rx metoprolol succinate 25 mg 12.5 mg PO DAILY #45 tab 05/07/21 10/27/21 Unknown Rx tablet,extended release 24 hr diltiazem HCl 120 mg capsule,24 120 mg PO DAILY #90 cap 05/25/21 10/27/21 Unknown Rx hr,extended release (Taztia XT) nystatin 100,000 unit/mL oral 500,000 unit (5 mL) BUCCAL TID 06/02/21 12/10/21 Unknown Rx suspension #200 ml torsemide 20 mg tablet See Rx Instructions .ROUTE 08/10/21 10/27/21 Unknown Rx .COMPLEX #90 tab lisinopril 40 mg tablet See Rx Instructions .ROUTE 10/15/21 12/10/21 12/09/21 06:00 Rx .COMPLEX #90 tab warfarin 5 mg tablet See Rx Instructions .ROUTE 10/18/21 12/10/21 12/08/21 22:00 Rx .COMPLEX #108 tab tamsulosin 0.4 mg capsule See Rx Instructions .ROUTE 10/27/21 12/10/21 12/09/21 22:00 Rx .COMPLEX #120 cap nitroglycerin 0.4 mg sublingual 0.4 mg SUBLINGUAL Q5M PRN #30 tab 10/28/21 12/10/21 Unknown Rx tablet (Nitrostat) triamcinolone acetonide 0.1 % 1 applic TOPICAL BID #60 ml 11/01/21 Unknown Rx lotion triamcinolone acetonide 0.1 % See Rx Instructions .ROUTE 11/23/21 Unknown Rx topical cream .COMPLEX #454 g Allergies Allergy/AdvReac Type Severity Reaction Status Date / Time Nzzxbei-TGZ-LpP Reductase Allergy unknown Verified 12/10/21 00:16 Inhibitor [Knvzabc-Jtj-Qnl Reductase Inhibitor] Current Medications Generic Name Dose Route Start Last Admin Trade Name Freq PRN Reason Stop Dose Admin Hydromorphone HCl 1 mg 12/10/21 06:40 12/10/21 07:32 Hydromorphone 1 Mg/Ml Inj 1 Ml IVP 1 mg Q4H PRN Administration PAIN Insulin Human Lispro 0 unit 12/10/21 08:00 12/10/21 07:48 Insulin Lispro 100 Unit/1 Ml SUBCUT Not Given TIDWM ILAN Protocol Pantoprazole Sodium 40 mg 12/10/21 06:45 12/10/21 07:32 Pantoprazole 40 Mg Sdv IVP 40 mg Q24H ILAN Administration PFSH Acute PFSH: Medical History (Updated 12/10/21 @ 06:44 by Josh Wei MD) Alcohol abuse Anticoagulant long-term use Atrial fibrillation BPH (benign prostatic hyperplasia) BPH with obstruction/lower urinary tract symptoms CAD (coronary artery disease) Cardiomyopathy Carotid stenosis, bilateral Chronic prostatitis CKD (chronic kidney disease) COPD (chronic obstructive pulmonary disease) Dependence on continuous supplemental oxygen Diabetes Diet-controlled type 2 diabetes mellitus Hepatomegaly HTN (hypertension) Incomplete emptying of bladder Obesity Peripheral arterial disease Tobacco abuse Surgical History (Updated 12/10/21 @ 06:44 by Josh Wei MD) Hx of heart artery stent S/P carotid endarterectomy S/P hip replacement S/P PTCA (percutaneous transluminal coronary angioplasty) Family History Mother CAD (coronary artery disease) Diabetes Father , AGE 82 CAD (coronary artery disease) Hypertension Social History Quit status (tobacco): has quit using tobacco Former quit date comment: NOV 2019 Alcohol intake: current Alcohol intake frequency: 3 or more drinks per day Alcohol type: beer Desire information about alcohol rehabilitation?: No Counseling given: Yes Household members: spouse Marital status: Vitals/I&O/Wt Last Vital Signs Temp 98.4 F 12/10/21 07:49 Pulse 62 12/10/21 07:49 Resp 24 H 12/10/21 07:49 BP 138/89 12/10/21 07:49 Pulse Ox 93 12/10/21 07:49 12/09/21 12/10/21 12/10/21 22:59 06:59 14:59 Intake Total 0 / 0 Output Total 700 / 700 Balance -700 / -700 Weight last 48 hrs Weight 236 lb 8 oz Weight 232 lb Physical Exam Narrative: CONSTITUTIONAL: The patient is a normal appearing [] in no apparent distress. GENERAL: Patient in no acute distress. CARDIAC: Regular rate and rhythm. CHEST: Normal inspiratory effort, normal respiratory rate. ABDOMEN: Soft and nontender. SKIN: Clear, warm and intact. NEURO?PSYCH: The patient is alert and oriented to person, place and time. Sensorv /SILT Motor StrengthShoulder abduction C5 5/5Wrist extension C6 5/5Elbow extension C7 5/5Hand Hat Body Inspector C8 5/5Finger abduction T15/5 Radial/ Ulnar/ Median n intact LowerSensory (SILT)Motor StrengthHin flexion L2/3Ant/inner thigh 5/5Hip adducti on L2/3 5/5Knee extension L4 Lat thigh, 5/5Toe dorsiflexion L5 5/5Ankle dorsiflexion L5/ [id number] flexion S1 5/5 DTRBleeps 2+Triceps 2+Brachioradialis 2+Patellar 2+Achilles 2+ MUSCULOSKELETAL: [] UPPEREXTREMITIES: The patient had full active ROM in fingers, wrist, elbow, and shoulder. The patient demonstrated ability to fully flex/extend/abduct/adduct fingers, make ok sign, cross 2nd/3rd digits, extend 1st digit fully.. Radial pulse 2+, CR<2 seconds. LOWER EXTREMITIES: Pt has full, active ROM of toes, ankle, knee, and hip. Dorsalis pedis/posterior tibialis pulses 2+, CR<2 seconds. SPINE: Skin warm, dry, intact. Urinary Catheter Management: Alberts: Cath Placed During This Visit: yes Reason for Continuing Indwelling Catheter: Required Immobilization for Trauma or Surgery or Anesthesia Urinary Catheter Date of Insertion: 12/10/21 Urinary Catheter Time of Insertion: 00:48 Data : 12/10/21 01:00 12/10/21 01:00 A&P Assessment and plan (1) Periprosthetic hip fracture: ORIF right proximal femur Status: Acute Coding Level of Care Code Acute Polisher Apprentice for [facility] Diagnoses Periprosthetic hip fracture M97.8XXA; Z96.649
--- NOTE | 2021-12-10 09:14 | PC.RESP ---
Pt out of room at this time.
[2021-12-10] MEDS: sodium chloride 0.9% 1,000 ML 30 ML IV (09:25)
--- NOTE | 2021-12-10 10:20 | ANES.PREANE2 ---
Pre-Anesthetic Assessment Height/Weight: Height 1.68 m Weight 107.275 kg Temp Pulse Resp BP Pulse Ox 98.5 F 64 18 201/93 97 12/10/21 09:17 12/10/21 09:17 12/10/21 09:17 12/10/21 09:17 12/10/21 09:17 Preop Diagnosis: Worsening angina Operation Date: 12/10/21 14:30 Proposed Procedures p ORIF Proximal femur(Right) - Melo H Amber, DO Familial anesthetic complications: None Was Beta Elayne taken within 24 hours: Yes Was Clonidine taken within 24 hours: N/A Social Alcohol and Tobacco Long h/o smoking Exam alert, oriented x 3 and regular rate & rhythm Airway Submandibular: within normal limits Cervical ROM: within normal limits Mallampati: Class II Dentition: full Pulmonary Chronic Obstructive Pulmonary Disease Home O2 CV/HEM Atrial Fibrillation, Anemia, Coronary Artery Disease, Congestive Heart Failure (EF 30%), Hypertension and Peripheral Vascular Disease GI Gastroesophageal Reflux Disease Metabolic Diabetes Mellitus and Morbid Obesity Musc/skel Osteoarthritis/DJD Anesthetic Plan ASA status: 3 Anesthesia: General Risk of > 500 ml blood loss (7ml/kg in children): Yes, adequate IV access and fluids planned Medications/Allergies Home Medications Medication Instructions Recorded Confirmed Last Taken Type pantoprazole 40 mg tablet,delayed 40 mg PO BID 03/25/20 12/10/21 12/09/21 22:00 History release albuterol sulfate 2.5 mg (3 mL) INHALATION QID PRN 09/29/20 12/10/21 03/05/21 06:00 Rx #180 ml blood sugar diagnostic (OneTouch See Rx Instructions .ROUTE 10/08/20 10/27/21 Unknown Rx Ultra Blue Test Strip) .COMPLEX #150 strip tiotropium bromide 18 mcg capsule 1 cap INHALATION DAILY #90 inh 11/13/20 10/27/21 Unknown Rx with inhalation device (Spiriva with HandiHaler) hydralazine 50 mg tablet 75 mg PO TID #0 tab 03/06/21 10/27/21 03/05/21 06:00 Rx clopidogrel 75 mg tablet (Plavix) 75 mg PO DAILY #90 tab 04/05/21 12/10/21 12/09/21 06:00 Rx hydralazine 100 mg tablet 100 mg PO TID #270 tab 04/05/21 10/27/21 Unknown Rx metoprolol succinate 25 mg 12.5 mg PO DAILY #45 tab 05/07/21 10/27/21 Unknown Rx tablet,extended release 24 hr diltiazem HCl 120 mg capsule,24 120 mg PO DAILY #90 cap 05/25/21 10/27/21 Unknown Rx hr,extended release (Taztia XT) nystatin 100,000 unit/mL oral 500,000 unit (5 mL) BUCCAL TID 06/02/21 12/10/21 Unknown Rx suspension #200 ml torsemide 20 mg tablet See Rx Instructions .ROUTE 08/10/21 10/27/21 Unknown Rx .COMPLEX #90 tab lisinopril 40 mg tablet See Rx Instructions .ROUTE 10/15/21 12/10/21 12/09/21 06:00 Rx .COMPLEX #90 tab warfarin 5 mg tablet See Rx Instructions .ROUTE 10/18/21 12/10/21 12/08/21 22:00 Rx .COMPLEX #108 tab tamsulosin 0.4 mg capsule See Rx Instructions .ROUTE 10/27/21 12/10/21 12/09/21 22:00 Rx .COMPLEX #120 cap nitroglycerin 0.4 mg sublingual 0.4 mg SUBLINGUAL Q5M PRN #30 tab 10/28/21 12/10/21 Unknown Rx tablet (Nitrostat) triamcinolone acetonide 0.1 % 1 applic TOPICAL BID #60 ml 11/01/21 Unknown Rx lotion triamcinolone acetonide 0.1 % See Rx Instructions .ROUTE 11/23/21 Unknown Rx topical cream .COMPLEX #454 g Allergies Allergy/AdvReac Type Severity Reaction Status Date / Time Zztskst-SFV-AmW Reductase Allergy unknown Verified 12/10/21 00:16 Inhibitor [Cnvlklv-Eur-Chm Reductase Inhibitor] Current Medications Generic Name Dose Route Start Last Admin Trade Name Freq PRN Reason Stop Dose Admin Diltiazem HCl 120 mg 12/10/21 09:00 12/10/21 08:11 Diltiazem Er (24hr) 120 Mg Capsule PO 120 mg DAILY [facility] Administration Docusate Sodium 100 mg 12/10/21 09:00 12/10/21 08:36 Docusate Sodium 100 Mg Capsule PO Not Given BID [facility] Folic Acid 1 mg 12/10/21 09:00 12/10/21 08:10 Folic Acid 1 Mg Tablet PO 1 mg DAILY ILAN Administration Hydralazine HCl 75 mg 12/10/21 09:00 12/10/21 08:11 Hydralazine 50 Mg Tablet PO 75 mg TID ILAN Administration Hydromorphone HCl 1 mg 12/10/21 06:40 12/10/21 07:32 Hydromorphone 1 Mg/Ml Inj 1 Ml IVP 1 mg Q4H PRN Administration PAIN Dextrose/Sodium Chloride 1,000 mls @ 75 mls/hr 12/10/21 06:45 12/10/21 08:12 Dextrose 5%-Sod Chloride 0.9% IV 75 mls/hr .[id number] ILAN Administration Sodium Chloride 1,000 mls @ 30 mls/hr 12/10/21 09:30 12/10/21 09:25 Sodium Chloride 0.9% IV 12/11/21 09:29 30 mls/hr .Q24H ILAN Administration Insulin Human Lispro 0 unit 12/10/21 08:00 12/10/21 07:48 Insulin Lispro 100 Unit/1 Ml SUBCUT Not Given TIDWM [facility] Protocol Metoprolol Succinate 12.5 mg 12/10/21 09:00 12/10/21 08:10 Metoprolol Succinate Er (24 Hr) 25 Mg Tablet PO 12.5 mg DAILY ILAN Administration Multivitamins Therapeutic 1 tab 12/10/21 09:00 12/10/21 08:11 Multivitamin Therapeutic Tablet PO 1 tab DAILY ILAN Administration Pantoprazole Sodium 40 mg 12/10/21 06:45 12/10/21 07:32 Pantoprazole 40 Mg Sdv IVP 40 mg Q24H ILAN Administration Tamsulosin HCl 0.4 mg 12/10/21 09:00 12/10/21 08:11 Tamsulosin 0.4 Mg Capsule PO 0.4 mg BID ILAN Administration Thiamine Mononitrate 100 mg 12/10/21 09:00 12/10/21 08:10 Thiamine 100 Mg Tablet PO 100 mg DAILY ILAN Administration [facility] Anesthesia Medical History (Updated 12/10/21 @ 06:44 by Josh Wei MD) Alcohol abuse Anticoagulant long-term use Atrial fibrillation BPH (benign prostatic hyperplasia) BPH with obstruction/lower urinary tract symptoms CAD (coronary artery disease) Cardiomyopathy Carotid stenosis, bilateral Chronic prostatitis CKD (chronic kidney disease) COPD (chronic obstructive pulmonary disease) Dependence on continuous supplemental oxygen Diabetes Diet-controlled type 2 diabetes mellitus Hepatomegaly HTN (hypertension) Incomplete emptying of bladder Obesity Peripheral arterial disease Tobacco abuse Surgical History (Updated 12/10/21 @ 06:44 by Josh Wei MD) Hx of heart artery stent S/P carotid endarterectomy S/P hip replacement S/P PTCA (percutaneous transluminal coronary angioplasty) Family History Mother CAD (coronary artery disease) Diabetes Father , AGE 82 CAD (coronary artery disease) Hypertension Social History Quit status (tobacco): has quit using tobacco Former quit date comment: NOV 2019 Alcohol intake: current Alcohol intake frequency: 3 or more drinks per day Alcohol type: beer Desire information about alcohol rehabilitation?: No Counseling given: Yes Household members: spouse Marital status: Data Anesthesia : 12/10/21 01:00 12/10/21 01:00 Short CBC 12/10/21 Range/Units 01:00 WBC 11.1 H (4.0-10.0) 10^3/uL Hgb 12.5 (11.7-16.6) g/dL Hct 36.1 L (42.0-52.0) % MCV 92.6 (80-94) fl Plt Count 214 (130-400) 10^3/cmm Neut % (Auto) 87.7 % Neut # (Auto) 9.76 H (1.8-7.7) 10^3/uL BMP 12/10/21 01:00 Sodium 126 L Potassium 3.8 Chloride 84 L Carbon Dioxide 28 BUN 11 Creatinine 0.5 L Glucose 126 H Calcium 8.0 L Cardiac Enzymes 12/10/21 12/10/21 Range/Units 07:15 07:15 Creatine Kinase 95 (39-308) U/L Troponin T Baseline 18 H (0-15) ng/L NT-Pro-B Natriuret Pep 520 H (0-125) pg/mL Liver Function 12/10/21 Range/Units 01:00 Total Bilirubin 0.5 (0.15-1.2) mg/dL AST 21 (0-40) U/L ALT 12 (0-41) U/L Alkaline Phosphatase 82 (40-130) IU/L Albumin 4.2 (3.5-5.2) g/dL COVID Results 12/10/21 00:46 SARS-CoV-2 Ag (Rapid) Negative Coags 12/10/21 07:15 PT 20.30 H INR 1.69 H Cardiac Studies: No Data to Display
[2021-12-10] MEDS: vancomycin 1,000 MG SDV 1000 MG XX (13:19)
--- NOTE | 2021-12-10 13:25 | PC.CHAP ---
Pastoral Care Encounter/Spiritual Assessment Type of Contact [] Declined paste up artist visit [] Patient/Family/Request visit [] Outpatient visit [] Follow-up visit [] Physician referral x [] Code/Alert [x] Routine visit [] Staff referral [] Actively dying [] Patient sleeping [] Family support [] [] Out of room [] Palliative care [] [] Receiving care in room [] Pre-surgical visit [] Trauma [] Long length of stay [] ICU visit [] Other: Relational/Emotional Strength [x] Patient feels connected with others/family/visitors/staff [] Distress [] Loneliness/isolation [] Abandonment Spirituality of Patient [x] Person of Kelsi [x] Attends [employer] of their [place] [x] Believes in Prayer [] Reads Bible or Baptism materials [] There are Spiritual issues to be addressed Slitter And Rewinder Interventions [x] Prayer [x] Active listening [x] Non-anxious presence [] Spiritual/emotional support [] Crisis/trauma care [] Spiritual counseling [] Bereavement support [] Provided bereavement packet [] Provided Bible/devotional materials [] Provided toy/stuffed animal, coloring book to patient or family member [] Provided Communion [] Anointing/[place] [] Salvation [x] Completed spiritual assessment [] Other: Impact on Illness or Injury [] Angry [] Fearful [] Anxious [] Often cries [] Exhaustion [] Unable to work [] Unable to attend restoration [] Unable to walk/stand [] Unable to read [] Unable to drive [] Unable to eat/drink [] Unable to sleep [] Unable to be with family [] Patient intubated [] Other: Summary Time spent with patient 1 min
--- NOTE | 2021-12-10 14:26 | PC.RESP ---
PT STILL UNAVAILABLE FOR EKG- OUT OF ROOM
--- NOTE | 2021-12-10 14:29 | PM.PN ---
Subjective Subjective: Alberto reports he is doing okay. Awaiting surgery. Medications: Reviewed: Yes Vitals/I&O/Wt Last Vital Signs Temp 98.5 F 12/10/21 09:17 Pulse 64 12/10/21 09:17 Resp 18 12/10/21 09:17 BP 201/93 12/10/21 09:17 Pulse Ox 97 12/10/21 09:17 12/09/21 12/10/21 12/10/21 22:59 06:59 14:59 Intake Total 0 / 0 50 / 50 Output Total 700 / 700 Balance -700 / -700 50 / 50 Weight last 48 hrs Weight 107.275 kg Weight 105.233 kg Physical Exam Narrative: General exam no distress Neck is supple no lymphadenopathy or megaly Cardiovascular regular rate and rhythm, no murmur Lungs clear no wheezing or crackles Abdomen is soft nontender positive bowel sounds Extremities no cyanosis clubbing or edema Urinary Catheter Management: Alberts: Cath Placed During This Visit: yes Reason for Continuing Indwelling Catheter: Required Immobilization for Trauma or Surgery or Anesthesia Urinary Catheter Date of Insertion: 12/10/21 Urinary Catheter Time of Insertion: 00:48 Data : 12/10/21 01:00 12/10/21 01:00 A&P Assessment and plan (1) Periprosthetic hip fracture: N.p.o. for possible surgery today. Orthopedic surgery consultation Discussed with patient he may require placement, he reports he will likely be able to go home following repair. Status: Acute (2) Chronic hyponatremia: Stable currently Status: Acute (3) Atrial fibrillation: Continue home medications of diltiazem, metoprolol. Hold anticoagulation for surgery. Status: Acute (4) CKD (chronic kidney disease): Monitor closely in hospital Avoid anti-inflammatories Status: Acute (5) COPD (chronic obstructive pulmonary disease): No evidence of exacerbation currently Status: Acute Plan Coronary artery disease. Restart Plavix following surgery. Appears compensated currently. Alcohol abuse. Monitor for withdrawal. Attestations Medical Necessity Statement*: Needs continued hospitalization for definitive evaluation and treatment of hip fracture. Coding Level of Care Code Acute Spanish Interpreter/Translator for [facility] Diagnoses Periprosthetic hip fracture M97.8XXA; Z96.649 Chronic hyponatremia E87.1 Atrial fibrillation I48.91 CKD (chronic kidney disease) N18.9 COPD (chronic obstructive pulmonary disease) J44.9
--- NOTE | 2021-12-10 14:42 | PM.OP ---
Operative Report Date of procedure: December 10, 2021 Pre-op diagnosis: Preop Diagnosis Juliana prosthetic proximal femur fracture Post-op diagnosis: same Procedure done: ORIF proximal femur fracture Surgeon: Melo Clark Estimated blood loss (mL): 300 Procedure: ORIF proximal femur fracture Patient was brought to the operative suite after undergoing anesthesia was placed into the lateral decubitus position with the right side up. Patient was prepped and draped in the normal sterile fashion. Skin was made using the previous incision. The IT band was split and then the vastus lateralis was elevated anteriorly. The fracture was identified and reduced. The [place] hook plate was placed on the tip of the greater trochanter. In reduced down to the bone and reducing the fracture. Cables were then placed at [address] places and 2 screws were placed distal to the fracture. Through the plate. AP lateral fluoroscopy ensure that the fracture and hardware in good position. Wounds were then irrigated. There is some area where there was comminution and DBX bone graft was packed into there. The vastus lateralis was closed the IT band was closed with 0 Vicryl. Bank powder was placed in the wound was closed in layered fashion with 0 Vicryl 2-0 Vicryl and moise. Sterile dressings were applied and patient was transferred to the PACU in stable condition.
--- NOTE | 2021-12-10 15:20 | ANE.PACU2 ---
Inpatient post-anesthesia follow up: Airway intact: Yes Vital signs: Temperature 97.4 F Pulse Rate 71 Respiratory Rate 16 Blood Pressure 145/68 Pulse Oximetry 98 Oxygen Delivery Me thod Nasal Cannula Oxygen Flow Rate 3 Fraction of Inspir ed Oxygen Hydration adequate: Yes Nausea and vomiting: No Pain level: 4 Mental status: Baseline
[2021-12-10] MEDS: magnesium sulfate premix 2 GM/50 ML PIGGYBACK IV (17:15)
--- NOTE | 2021-12-10 21:01 | PC.NURSE ---
PT ARRIVED TO THE FLOOR AFTER SURGERY AWAKE AND APPEARED TO BE COMFORTABLE. PT WAS ALERT AND ORIENTATED. WHILE PT WAS IN RECOVERY IT HAD BEEN DISCOVERED THAT HE HAD BEEN EXPOSED TO COVID DURING HIS STAY HERE. PRIOR TO KNOWING THE PT HAD BEEN EXPOSED TO COVID, THE PTS FAMILY HAD COME UPSTAIRS TO CHECK ON HIM AND THIS NURSE HAD EXPLAINED THE PT WAS NOT ON THE FLOOR AND THAT I HAS NOT HEARD ANYTHING YET. THIS NURSE EXPLAINED THAT THE PT WOULD ONLY BE ALLOWED TWO VISITORS PER POLICY THOUGH WHENEVER HE GOT TO THE FLOOR. THE FAMILY APPEARED UPSET BUT AGREED TO WAITING IN THE WAITING ROOM AND THEN TWO OF THE THREE PEOPLE WOULD GO BACK AND SEE HIM ONCE HE GOT UP TO THE FLOOR AND SETTLED IN HIS ROOM. WHILE WAITING FOR THE PT TO RETURN TO THE FLOOR THIS NURSE WAS NOTIFIED THAT THE PT HAD BEEN EXPOSED TO COVID. THIS NURSE WENT AND EXPLAINED TO THE PTS FAMILY THAT DURING HIS STAY HERE HE HAD BEEN EXPOSED TO COVID AND THAT HE WOULD NOT BE ALLOWED VISITORS UNTIL HIS COVID TEST COME BACK NEGATIVE PER POLICY. THE FAMILY WAS VERY UPSET. THIS NURSE TRIED EXPLAINING TO THE FAMILY WHAT MEASURES COULD BE DONE AND TRIED CALMING THE FAMILY DOWN BUT WAS NOT REAL SUCCESSFUL AT DOING SO. THIS NURSE WENT AND TALKED TO THE ATTENDING PHYSICIAN AND EXPLAINED THE SITUATION TO HIM. THIS NURSE WENT BACK TO THE FAMILY AND CONTINUED TO TRY AND EXPLAIN THINGS AND DE-ESCALATE THE SITUATION BUT WAS HAVING TROUBLE DOING SO. THE FAMILY WAS STILL UPSET. THEY WERE RAISING THEIR VOICE, CURSING, AND TALKING ABOUT HOW RIDICULOUS THIS WHOLE SITUATION WAS. THIS NURSE EXPLAINED THAT A PCR COVID SWAB WAS ORDERED AND THAT THIS NURSE WOULD COLLECT THE SAMPLE RIGHT AWAY SO WE COULD GET RESULTS SOONER RATHER THAN LATER. THE FAMILY WAS DEMANDING THAT THE BE LET IN TO SEE HER . THIS NURSE EXPLAINED THAT THE PT IS NOW ON PRECAUTIONS FOR THE TIME BEING AND NOT ALLOWED TO HAVE VISITORS UNLESS GIVEN PERMISSION. THIS NURSE WAS HAVING A HARD TIME CALMING THE FAMILY DOWN SO THE PHYSICIAN CAME OUT AND TALKED WITH THE FAMILY AND THEY APPEARED TO BE IN SOMEWHAT BETTER SPIRITS AFTERWARDS. DURING CONVERSATION IT IS OBVIOUS THAT THE PT AND FAMILY ARE ALL ANTI-COVID. THEY STATE THEY DONT BELIEVE IN COVID, THAT THEY THINK IT IS A GOVERNMENT FLU. THEY DO NOT BELIEVE IN THE VACCINATION NOR ANY COVID TREATMENT. DR GLOVER WAS VERY THOROUGH AND EXPLAINED THE SITUATION TO THE FAMILY VERY WELL. HE ANSWERED ALL QUESTIONS. THE OF THE PT WAS ALLOWED 20 MINUTES TO SPEND WITH HER LONG SHE AGREED TO DRESS UP IN THE PROPER PPE PER THE PHYSICIAN. RISKS WERE EXPLAINED TO HER AND SHE STILL AGREED TO SEEING HER . THIS NURSE WENT TO COLLECT THE SWAB AND ASSESS THE PTS MENTALITY AND IT WAS APPARENT THAT THE PT IS TOTALLY ALERT AND ORIENTATED AND DOES NOT APPEAR TO BE DIMINISHED OR AFFECTED BY ANY ANESTHESIA. PT ANSWERED ALL OF THE QUESTIONS APPROPRIATELY. WHILE IN THE ROOM WITH THE PT THIS NURSE EXPLAINED TO THE PT THAT HE HAD BEEN EXPOSED TO COVID AND THAT I WOULD NEED TO SWAB HIM AND WE WOULD HAVE TO ISOLATE HIM UNTIL FURTHER NOTICE. PT WAS COOPERATIVE AND UNDERSTOOD OUR POLICIES. HE DID EXPLAIN TO ME THAT HE DOES NOT BELIEVE IN COVID, THAT IT IS A GOVERNMENT FLU. HE IS NOT VACCINATED AND DOES NOT BELIEVE IN BEING VACCINATED. THIS NURSE TALKED TO THE PT ABOUT RECEIVING THE MONOCLONAL ANTIBODY INFUSION IF HE WERE TO TEST POSITIVE AND AGAIN HE STATED HE DOES NOT WANT THE INFUSION OR ANY COVID TREATMENT. HE DOES NOT BELIEVE IN THEM. PT IS RESPECTFUL AND PLEASANT BUT DOES SHARE HIS OWN BELIEFS. THIS NURSE DID INFORM THE PT OF THE SITUATION WITH HIS FAMILY AND THAT THE DOCTOR DID APPROVE FOR 20 MINUTES WITH HIS . THE PT AGREED TO AND WAS APPRECIATIVE OF THIS. STAYED WITH PT FOR 20 MINUTES AND THEN COME OUT AND TALKED TO THIS NURSE SOME MORE AND THEN WENT HOME. THIS NURSE LATER CALLED THE TO INFORM HER THAT THE COVID TEST RESULT STILL HAD NOT COME BACK BUT WE WOULD LET HER KNOW SOON IT DID. THE PHYSICIAN WAS NOTIFIED THAT THE SAMPLE RESULT STILL HAD NOT COME BACK BUT WE WOULD NOTIFY HIM SOON IT DID. WILL CONTINUE TO MONITOR PT AND WILL UPDATE PHYSICIAN AND FAMILY WHEN RESULT COMES BACK.
[2021-12-10 21:32] LABS: Adenovirus Not Detected (NOT DETECT); Chlamydia Pneumoniae Not Detected (NOT DETECT); Coronavirus 229E,HKU1,NL63,OC4 Not Detected (NOT DETECT); Human Metapneumovirus Not Detected (NOT DETECT); Human Rhinovirus/Enterovirus Not Detected (NOT DETECT); Influenza A Not Detected (NOT DETECT); Influenza A H1 Not Detected (NOT DETECT); Influenza A H1-2009 Not Detected (NOT DETECT); Influenza A H3 Not Detected (NOT DETECT); Influenza B Not Detected (NOT DETECT); Mycoplasma Pneumoniae Not Detected (NOT DETECT); Parainfluenza Virus Type 1 Not Detected (NOT DETECT); Parainfluenza Virus Type 2 Not Detected (NOT DETECT); Parainfluenza Virus Type 3 Not Detected (NOT DETECT); Parainfluenza Virus Type 4 Not Detected (NOT DETECT); Respiratory Syncytial Virus A Not Detected (NOT DETECT); Respiratory Syncytial Virus B Not Detected (NOT DETECT); SARS-COV-2 Not Detected (NOT DETECT)
[2021-12-10] MEDS: lidocaine 2% viscous 15 ML, aluminum-mag hydrox-simethicon 30 ML, sucralfate oral liq 1 GM PO (22:23)
[2021-12-11] VITALS (8 sets, daily range): BP systolic 106–163; BP diastolic 68–92; PULSE 62–76; RESP 16–19; TEMP 36.4–36.8; O2SAT 97–99
[2021-12-11] MEDS: enoxaparin 40 mg/0.4 mL Syringe SUBCUT (03:49)
[2021-12-11] MEDS: pantoprazole 40 mg SDV IVP (05:48)
[2021-12-11 06:42] LABS: Glucose Point of Care 168 mg/dL (70-110)
[2021-12-11 06:43] LABS: Basophils % 0.1 %; Hematocrit 24.8 % (42.0-52.0); Hemoglobin 8.5 g/dL (11.7-16.6); Lymphocytes # 0.4 10^3/uL (0.8-4.8); Lymphocytes % 3.4 %; Mean Corpuscular HGB Conc 34.3 g/dL (30.0-36.0); Mean Corpuscular Hemoglobin 32.6 pg (28.0-34.0); Mean Platelet Volume 9.5 fL (7.4-10.4); Monocytes # 1.1 10^3/uL (0.2-0.9); Monocytes % 9.1 %; Neutrophils # 10.45 10^3/uL (1.8-7.7); Neutrophils % 86.9 %; Nucleated Red Blood Cells % 0 %; Platelet Count 187 10^3/cmm (130-400); Red Blood Count 2.61 10^6/uL (4.1-5.3); Red Cell Distribution Width 13.1 % (12.1-15.1)
[2021-12-11 07:11] LABS: Blood Urea Nitrogen 12 mg/dL (8-23); Calcium 8.1 mg/dL (8.5-10.5); Carbon Dioxide 29 mmol/L (22-29); Chloride 89 mmol/L (98-107); Glomerular Filtration Rate 135.2 mL/min (90-130); Glucose 162 mg/dL (65-115); Osmolality Calculated 265 mOsm/kg (285-295); Sodium 126 mmol/L (136-145); Thyroid Stimulating Hormone 0.73 uIU/mL (0.27-4.20)
[2021-12-11 07:20] LABS: INR 1.64 (0.8-1.2)
[2021-12-11] MEDS: dilTIAZem ER (24HR) 120 mg Capsule PO (09:21)
[2021-12-11] MEDS: multivitamin therapeutic Tablet 1 TAB PO (09:22)
[2021-12-11] MEDS: thiamine 100 mg Tablet PO (09:22)
[2021-12-11] MEDS: folic acid 1 mg Tablet PO (09:22)
[2021-12-11] MEDS: metoprolol succinate ER (24 HR) 25 mg Tablet 12.5 MG PO (09:22)
[2021-12-11] MEDS: insulin lispro 100 unit/1 mL SUBCUT ×3 (09:23→17:45)
[2021-12-11] MEDS: docusate sodium 100 mg Capsule PO ×2 (09:23→17:45)
[2021-12-11] MEDS: HYDROmorphone 1 mg/mL INJ 1 mL IVP (09:24)
[2021-12-11] MEDS: dextrose 5%-sod chloride 0.9% 1,000 ML 75 ML IV ×2 (09:33→23:57)
[2021-12-11] MEDS: hyDRALAzine 50 mg Tablet 75 MG PO ×3 (09:33→20:43)
[2021-12-11] MEDS: tamsulosin 0.4 mg Capsule PO ×2 (09:41→17:45)
--- NOTE | 2021-12-11 11:12 | PM.PN ---
Subjective Subjective: Patient patient's pain is much better controlled today. Vitals/I&O/Wt Last Vital Signs Temp 97.5 F L 12/11/21 10:49 Pulse 76 12/11/21 10:49 Resp 16 12/11/21 10:49 BP 106/68 12/11/21 10:49 Pulse Ox 98 12/11/21 10:49 12/10/21 12/11/21 12/11/21 22:59 06:59 14:59 Intake Total 1110 / 2660 2400 / 5060 240 / 240 Output Total 650 / 950 300 / 1250 Balance 460 / 1710 2100 / 3810 240 / 240 Weight last 48 hrs Weight 237 lb 11.2 oz Weight 236 lb 8 oz Weight 232 lb Physical Exam Narrative: Sitting comfortably in a chair sitting comfortably in a chair. Urinary Catheter Management: Alberts: Cath Placed During This Visit: yes Reason for Continuing Indwelling Catheter: Required Immobilization for Trauma or Surgery or Anesthesia Urinary Catheter Date of Insertion: 12/10/21 Urinary Catheter Time of Insertion: 00:48 Data : 12/11/21 05:38 12/11/21 05:38 A&P Assessment and plan (1) Closed fracture of right hip: Continue to get okay to discharge from an orthopedic standpoint when okay with the hospitalist service. Status: Acute Qualifiers: Encounter type: initial encounter Qualified Code(s): S72.001A - Fracture of unspecified part of neck of right femur, initial encounter for closed fracture Attestations Medical Necessity Statement*: Per primary service per Coding Level of Care Code Acute Financial Institution Branch Manager for [facility] Rona Diagnoses Closed fracture of right hip S72.001A Encounter type: initial encounter
[2021-12-11 11:15] LABS: Glucose Point of Care 164 mg/dL (70-110)
--- NOTE | 2021-12-11 11:39 | PM.PN ---
Subjective Subjective: Is feeling pretty good today after his surgery. His labs were reviewed, and he developed quite the anemia after surgery. He is on anticoagulation as well for his atrial fibrillation. Vitals/I&O/Wt Last Vital Signs Temp 97.5 F L 12/11/21 10:49 Pulse 76 12/11/21 10:49 Resp 16 12/11/21 10:49 BP 106/68 12/11/21 10:49 Pulse Ox 98 12/11/21 10:49 12/10/21 12/11/21 12/11/21 22:59 06:59 14:59 Intake Total 1110 / 2660 2400 / 5060 240 / 240 Output Total 650 / 950 300 / 1250 Balance 460 / 1710 2100 / 3810 240 / 240 Weight last 48 hrs Weight 237 lb 11.2 oz Weight 236 lb 8 oz Weight 232 lb Physical Exam Narrative: Is no woundHe is in no distress. distress today Resp: COMMON NORMALS: normal respiratory effort, No retractions, No use of accessory muscles, clear to auscultation bilaterally and percussion normal AUSCULTATION: clear to auscultation bilaterally PERCUSSION: percussion normal Cardio: OTHER: Irregularly irregular Urinary Catheter Management: Alberts: Cath Placed During This Visit: yes Reason for Continuing Indwelling Catheter: Required Immobilization for Trauma or Surgery or Anesthesia Urinary Catheter Date of Insertion: 12/10/21 Urinary Catheter Time of Insertion: 00:48 Data : 12/11/21 05:38 12/11/21 05:38 A&P Assessment and plan (1) Alcohol withdrawal: Status: Acute (2) Chronic hyponatremia: Status: Acute (3) Periprosthetic hip fracture: Status: Acute (4) Diabetes mellitus type 2, diet-controlled: Status: Acute (5) Postoperative anemia: Status: Acute Attestations Medical Necessity Statement*: I will go in the morning and I will release him in the morning if his hemoglobin is stable. Coding Level of Care Code Acute Dredge Operator for [facility] Diagnoses Alcohol withdrawal F10.239 Chronic hyponatremia E87.1 Periprosthetic hip fracture M97.8XXA; Z96.649 Diabetes mellitus type 2, diet-controlled E11.9 Postoperative anemia D64.9
[2021-12-11 12:59] LABS: Basophils % 0.1 %; Hematocrit 25.4 % (42.0-52.0); Hemoglobin 8.5 g/dL (11.7-16.6); Lymphocytes # 0.5 10^3/uL (0.8-4.8); Lymphocytes % 3.6 %; Mean Corpuscular HGB Conc 33.5 g/dL (30.0-36.0); Mean Corpuscular Hemoglobin 32.3 pg (28.0-34.0); Mean Corpuscular Volume 96.6 fl (80-94); Mean Platelet Volume 9.3 fL (7.4-10.4); Monocytes # 1.4 10^3/uL (0.2-0.9); Monocytes % 9.4 %; Neutrophils # 12.82 10^3/uL (1.8-7.7); Neutrophils % 86.3 %; Nucleated Red Blood Cells % 0 %; Platelet Count 200 10^3/cmm (130-400); Red Blood Count 2.63 10^6/uL (4.1-5.3); Red Cell Distribution Width 13.1 % (12.1-15.1); White Blood Count 14.9 10^3/uL (4.0-10.0)
[2021-12-11] MEDS: HYDROcodone-acetaminophen 5-325 mg Tablet PO ×2 (14:42→20:42)
[2021-12-11 16:05] LABS: Amphetamines Screen Urine Negative (Negative); Barbiturates Screen Urine Negative (Negative); Benzodiazepines Screen Urine Negative (Negative); Cocaine Screen Urine Negative (Negative); Opiate Screen Urine Positive (Negative); PCP Screen Urine Negative (Negative); THC Screen Urine Negative (Negative)
[2021-12-11 16:12] LABS: Urine Appearance Hazy (CLEAR); Urine Color Dark Yellow (Yellow)
[2021-12-11 16:13] LABS: Add Urine Microscopic? YES; Bilirubin Urine Neg (Negative); Blood Urine 3+ (Negative); Glucose Urine UA Norm (Normal); Ketones Urine Negative (Negative); Leukocyte Esterase Urine Trace (Negative); Nitrate Urine Negative (Negative); Protein Urine 1+ (Negative); Urobilinogen Urine Norm (Negative); pH Urine 5 (5-7)
[2021-12-11 16:14] LABS: Bacteria Urine TRACE /hpf; RBC Urine TOO NUMEROUS TO CNT /hpf (0-2)
[2021-12-11 16:15] LABS: Add Urine Culture? Yes
[2021-12-11 17:11] LABS: Glucose Point of Care 143 mg/dL (70-110)
[2021-12-11 21:55] LABS: Glucose Point of Care 144 mg/dL (70-110)
[2021-12-12 00:32] VITALS: BP 138/89; PULSE 63; RESP 17; TEMP 36.7; O2SAT 99
[2021-12-12] MEDS: enoxaparin 40 mg/0.4 mL Syringe SUBCUT (03:37)
[2021-12-12 03:43] VITALS: BP 122/72; PULSE 62; RESP 18; TEMP 36.6; O2SAT 99
[2021-12-12] MEDS: pantoprazole 40 mg SDV IVP (06:23)
[2021-12-12 06:28] LABS: Glucose Point of Care 130 mg/dL (70-110)
--- NOTE | 2021-12-12 06:32 | PC.NURSE ---
SHIFT SUMMARY Has had a good night. Took a Hydrocodone for pain with bedtime meds but since has declilned need for anything. Says is painful to move leg but otherwise very minimal pain. Is hoping to go home today. Dressing to right lat hip C&D. Alberts draining large output of urine. Taking po well and IV infusing at 75ml/hr rate. Pleasant and has been visiting with roommate this morning.
[2021-12-12 06:43] LABS: Basophils % 0.1 %; Eosinophils % 0.1 %; Hematocrit 22.8 % (42.0-52.0); Hemoglobin 7.4 g/dL (11.7-16.6); Lymphocytes # 0.8 10^3/uL (0.8-4.8); Lymphocytes % 7.4 %; Mean Corpuscular HGB Conc 32.5 g/dL (30.0-36.0); Mean Corpuscular Hemoglobin 32.7 pg (28.0-34.0); Mean Corpuscular Volume 100.9 fl (80-94); Mean Platelet Volume 9.5 fL (7.4-10.4); Monocytes # 1.3 10^3/uL (0.2-0.9); Monocytes % 12.3 %; Neutrophils # 8.29 10^3/uL (1.8-7.7); Neutrophils % 79.5 %; Nucleated Red Blood Cells % 0 %; Platelet Count 168 10^3/cmm (130-400); Red Blood Count 2.26 10^6/uL (4.1-5.3); Red Cell Distribution Width 13.2 % (12.1-15.1); White Blood Count 10.4 10^3/uL (4.0-10.0)
[2021-12-12 07:06] LABS: INR 1.31 (0.8-1.2)
[2021-12-12 07:21] LABS: Anion Gap 13.4 (5-19); Blood Urea Nitrogen 14 mg/dL (8-23); Calcium 7.9 mg/dL (8.5-10.5); Carbon Dioxide 28 mmol/L (22-29); Chloride 89 mmol/L (98-107); Glomerular Filtration Rate 166.9 mL/min (90-130); Glucose 119 mg/dL (65-115); Osmolality Calculated 264 mOsm/kg (285-295); Potassium 4.4 mmol/L (3.5-5.1); Sodium 126 mmol/L (136-145)
[2021-12-12 08:00] VITALS: BP 145/76; PULSE 61; RESP 18; TEMP 36.7; O2SAT 99
[2021-12-12] MEDS: hyDRALAzine 50 mg Tablet 75 MG PO (08:22)
[2021-12-12] MEDS: metoprolol succinate ER (24 HR) 25 mg Tablet 12.5 MG PO (08:22)
[2021-12-12] MEDS: docusate sodium 100 mg Capsule PO (08:22)
[2021-12-12] MEDS: HYDROcodone-acetaminophen 5-325 mg Tablet PO (08:22)
[2021-12-12] MEDS: folic acid 1 mg Tablet PO (08:22)
[2021-12-12] MEDS: thiamine 100 mg Tablet PO (08:23)
[2021-12-12] MEDS: tamsulosin 0.4 mg Capsule PO (08:23)
[2021-12-12] MEDS: dilTIAZem ER (24HR) 120 mg Capsule PO (08:23)
[2021-12-12] MEDS: multivitamin therapeutic Tablet 1 TAB PO (08:23)
[2021-12-12 10:20] VITALS: PULSE 70; RESP 18; O2SAT 99
[2021-12-12 11:23] LABS: Glucose Point of Care 121 mg/dL (70-110)
--- NOTE | 2021-12-12 11:39 | PM.DCS ---
Discharge Providers Date of Admission: 12/10/21 00:37 Date of Discharge: December 12, 2021 Attending Provider at Admission: Josh Wei MD Attending Provider at Discharge: Hamzah Candelario MD Primary Care Provider: CARMELA Bello Diagnoses at Discharge Discharge Diagnosis (1) Alcohol withdrawal: Status: Acute (2) Chronic hyponatremia: Status: Acute (3) Periprosthetic hip fracture: Status: Acute (4) Diabetes mellitus type 2, diet-controlled: Status: Acute (5) Postoperative anemia: Status: Acute Reason for Visit Reason for Visit: right hip pain Hospital Course Hospital Course Patient was admitted with hip fracture and was treated for said fracture with definitive surgery by Dr. Clark. For details of said surgery refer to his notes. Postoperatively was noted that his hemoglobin did drop down to around 8 and was 7.4 the next day. There is no signs of bleeding or any large hematoma over the wound no blood in his urine etc. so I think this is probably postoperative anemia. I would like for home health to draw a CBC on him early next week to make sure that this is not trending on down. I have informed the patient that he is not an ideal candidate for going home, but he is not really in a situation where he needs to be hospitalized. I have informed him that he would be better served by some sort of rehab placement and he adamantly insists on going home.. Physical Exam Urinary Catheter Management: Alberts: Cath Placed During This Visit: yes Reason for Continuing Indwelling Catheter: Required Immobilization for Trauma or Surgery or Anesthesia Urinary Catheter Date of Insertion: 12/10/21 Urinary Catheter Time of Insertion: 00:48 Discharge Data Studies Completed and Pending Completed Studies During Hospitalization Category Date Time Status XR chest 1V portable [id number] Stat Exams 12/10/21 00:35 Completed XR femur RT min 2V* [id number] Routine Exams 12/10/21 Completed XR hip RT 2-3V wo/w pel* [id number] Stat Exams 12/10/21 00:09 Completed Pending at discharge Category Date Time Status Basic Metabolic Panel AM LABS Lab 12/13/21 04:00 Ordered Complete Blood Count w/Auto AM LABS Lab 12/13/21 04:00 Ordered Prothrombin Time INR AM LABS Lab 12/13/21 04:00 Ordered Urine Culture Routine Lab 12/10/21 14:40 Received Radiology Impressions Femur X-Ray 12/10/21 00:00 IMPRESSION: Fixation of periprosthetic fracture proximal right femur as above. Hip/Pelvis X-Ray 12/10/21 00:09 IMPRESSION: Periprosthetic fracture in the proximal right femur. No dislocation. Chest X-Ray 12/10/21 00:35 IMPRESSION: 1. No acute findings. 2. Cardiac enlargement. Laboratory Results WBC 10.4 10^3/uL (4.0-10.0) H 12/12/21 05:24 RBC 2.26 10^6/uL (4.1-5.3) L 12/12/21 05:24 Hgb 7.4 g/dL (11.7-16.6) L 12/12/21 05:24 Hct 22.8 % (42.0-52.0) L 12/12/21 05:24 MCV 100.9 fl (80-94) H 12/12/21 05:24 MCH 32.7 pg (28.0-34.0) 12/12/21 05:24 MCHC 32.5 g/dL (30.0-36.0) 12/12/21 05:24 RDW 13.2 % (12.1-15.1) 12/12/21 05:24 Plt Count 168 10^3/cmm (130-400) 12/12/21 05:24 MPV 9.5 fL (7.4-10.4) 12/12/21 05:24 Neut % (Auto) 79.5 % 12/12/21 05:24 Lymph % (Auto) 7.4 % 12/12/21 05:24 [place] % (Auto) 12.3 % 12/12/21 05:24 Eos % (Auto) 0.1 % 12/12/21 05:24 Baso % (Auto) 0.1 % 12/12/21 05:24 Neut # (Auto) 8.29 10^3/uL (1.8-7.7) H 12/12/21 05:24 Lymph # (Auto) 0.8 10^3/uL (0.8-4.8) 12/12/21 05:24 [place] # (Auto) 1.3 10^3/uL (0.2-0.9) H 12/12/21 05:24 Eos # (Auto) 0.0 10^3/uL (0.0-0.8) 12/12/21 05:24 Baso # (Auto) 0.0 10^3/uL (0.0-0.1) 12/12/21 05:24 Nucleated RBC % (auto) 0 % 12/12/21 05:24 Nucleated RBCs # 0.0 /100WBC 12/12/21 05:24 PT 16.70 SECONDS (12.1-14.9) H 12/12/21 05:24 INR 1.31 (0.8-1.2) H 12/12/21 05:24 Sodium 126 mmol/L (136-145) L 12/12/21 05:24 Potassium 4.4 mmol/L (3.5-5.1) 12/12/21 05:24 Chloride 89 mmol/L (98-107) L 12/12/21 05:24 Carbon Dioxide 28 mmol/L (22-29) 12/12/21 05:24 Anion Gap 13.4 (5-19) 12/12/21 05:24 BUN 14 mg/dL (8-23) 12/12/21 05:24 Creatinine 0.5 mg/dL (0.7-1.2) L 12/12/21 05:24 GFR Calculation 166.9 mL/min (90-130) H 12/12/21 05:24 Glucose 119 mg/dL (65-115) H 12/12/21 05:24 POC Glucose 121 mg/dL (70-110) H 12/12/21 11:04 Estimat Average Glucose 100 12/10/21 07:15 Hemoglobin A1c 5.1 % (4.0-6.0) 12/10/21 07:15 Calculated Osmolality 264 mOsm/kg (285-295) L 12/12/21 05:24 Calcium 7.9 mg/dL (8.5-10.5) L 12/12/21 05:24 Magnesium 1.1 mg/dL (1.7-2.3) L 12/10/21 07:15 Total Bilirubin 0.5 mg/dL (0.15-1.2) 12/10/21 01:00 AST 21 U/L (0-40) 12/10/21 01:00 ALT 12 U/L (0-41) 12/10/21 01:00 Alkaline Phosphatase 82 IU/L (40-130) 12/10/21 01:00 Creatine Kinase 95 U/L (39-308) 12/10/21 07:15 Troponin T Baseline 18 ng/L (0-15) H 12/10/21 07:15 NT-Pro-B Natriuret Pep 520 pg/mL (0-125) H 12/10/21 07:15 Total Protein 6.4 g/dL (6.6-8.7) L 12/10/21 01:00 Albumin 4.2 g/dL (3.5-5.2) 12/10/21 01:00 Globulin 2.2 g/dL (1.3-4.6) 12/10/21 01:00 Triglycerides 45 mg/dL (0-150) 12/10/21 07:15 Cholesterol 228 mg/dL (0-200) H 12/10/21 07:15 LDL Cholesterol, Calc 130 mg/dL (50-129) H 12/10/21 07:15 HDL Cholesterol 89 mg/dL (60-100) 12/10/21 07:15 LDL/HDL Ratio 1.46 RATIO (0.00-3.22) 12/10/21 07:15 Cholesterol/HDL Ratio 2.56 mg/dL (1.0-5.00) 12/10/21 07:15 Lipase 20 U/L (13-60) 12/10/21 07:15 TSH 0.73 uIU/mL (0.27-4.20) 12/11/21 05:38 Urine Color Dark yellow (Yellow) 12/10/21 14:40 Urine Appearance Hazy (CLEAR) A 12/10/21 14:40 Urine pH 5 (5-7) 12/10/21 14:40 Ur Specific [place] 1.010 (1.005-1.030) 12/10/21 14:40 Urine Protein 1+ (Negative) H 12/10/21 14:40 Urine Glucose (UA) Norm (Normal) 12/10/21 14:40 Urine Ketones Negative (Negative) 12/10/21 14:40 Urine Blood 3+ (Negative) H 12/10/21 14:40 Urine Nitrate Negative (Negative) 12/10/21 14:40 Urine Bilirubin Neg (Negative) 12/10/21 14:40 Urine Urobilinogen Norm mg/dL (Negative) 12/10/21 14:40 Ur Leukocyte Esterase Trace (Negative) H 12/10/21 14:40 Urine RBC Too numerous to cnt /hpf (0-2) H 12/10/21 14:40 Urine WBC 5-10 /hpf (0-5) H 12/10/21 14:40 Ur Squamous Epith Cells None /hpf (0-5) 12/10/21 14:40 Amorphous Sediment Not Reportable 12/10/21 14:40 Urine Bacteria Trace /hpf (NONE) 12/10/21 14:40 Urine Opiates Screen Positive ng/mL (Negative) H 12/10/21 14:40 Ur Barbiturates Screen Negative ng/mL (Negative) 12/10/21 14:40 Ur Phencyclidine Scrn Negative ng/mL (Negative) 12/10/21 14:40 Ur Amphetamines Screen Negative ng/mL (Negative) 12/10/21 14:40 U Benzodiazepines Scrn Negative ng/mL (Negative) 12/10/21 14:40 Urine Cocaine Screen Negative ng/mL (Negative) 12/10/21 14:40 U Marijuana (THC) Screen Negative ng/mL (Negative) 12/10/21 14:40 Ethyl Alcohol < 10 mg/dL (0-10) 12/10/21 07:15 Coronavirus 229E (PCR) Not detected (NOT DETECT) 12/10/21 17:22 SARS-CoV-2 (PCR) Not detected (NOT DETECT) 12/10/21 17:22 SARS-CoV-2 Ag (Rapid) Negative (Negative) 12/10/21 00:46 Vitals Last Vital Signs Temp 98.0 F 12/12/21 08:00 Pulse 70 12/12/21 10:20 Resp 18 12/12/21 10:20 BP 145/76 12/12/21 08:00 Pulse Ox 99 12/12/21 10:20 Discharge Plan Discharge Patient Disposition: Home Health Service Condition: Stable Prescriptions: Continued pantoprazole 40 mg tablet,delayed release (DR/EC) 40 mg PO BID 0RF albuterol sulfate 2.5 mg /3 mL (0.083 %) solution for nebulization 2.5 mg inhalation QID PRN (Reason: shortness of breath or wheezing) Qty: 180 1RF clopidogrel [Plavix] 75 mg tablet 75 mg PO DAILY Qty: 90 3RF hydralazine 100 mg tablet 100 mg PO TID Qty: 270 3RF Spiriva with HandiHaler 18 mcg capsule, w/inhalation device 1 cap INHALATION DAILY Qty: 90 1RF Rx Instructions: puncture 1 cap using device; one dose = 2 inhalations metoprolol succinate 25 mg tablet extended release 24 hr 12.5 mg PO DAILY Qty: 45 3RF Taztia XT 120 mg capsule,extended release 24 hr 120 mg PO DAILY Qty: 90 3RF warfarin 5 mg tablet See Rx Instructions .ROUTE .COMPLEX Qty: 108 0RF Dose Instruction: TAKE 1 TABLET BY MOUTH ON MONDAY, MONDAY, AND MONDAY AND 1 1/2 TABLETS ON MONDAY, MONDAY, MONDAY, AND MONDAY Rx Instructions: TAKE 1 TABLET BY MOUTH ON MONDAY, MONDAY, AND MONDAY AND 1 1/2 TABLETS ON MONDAY, MONDAY, MONDAY, AND MONDAY nitroglycerin [Nitrostat] 0.4 mg tablet, sublingual 0.4 mg SUBLINGUAL Q5M PRN (Reason: CHEST PAINS) Qty: 30 0RF Rx Instructions: do not exceed 3 doses per episode triamcinolone acetonide 0.1 % lotion 1 applic topical BID Qty: 60 0RF (DME) One Touch Test Strip MISCELLANEOUS 0RF torsemide 20 mg tablet 20 mg PO DAILY 0RF Flomax 0.4 mg capsule 0.4 mg PO BID 0RF lisinopril 40 mg Tablet 40 mg PO DAILY 0RF Discharge Orders: Discharge Order (Routine); Ordered 12/12/21 Ordered By: Hamzah Candelario Referrals: Chantelle Vides FNP [Primary Care Provider] - 7-10 days (Please call Chantelle Vides's office on Monday and schedule an appointment to be seen within the next 10 days. ) Discharge Diet: Usual diet Discharge Activity: As per PT/OT instructions Patient Instructions: Opioid Safety Activity Restrictions/Additional Instructions: You are being discharged from the hospital today during which time you have been under the care of Dr. Clark. You had a right proximal femur fracture. You were treated for this injury with ORIF of right proximal femur. You may resume you normal diet (including any special diets as directed by your primary doctor) as well as your home medications. You should follow up with you primary doctor if you have any questions regarding medication you took prior to your stay in the hospital. You may take your pain medication as prescribed. After the first few days, take your pain medication as needed. Do not drive or drink alcohol while taking your pain medication. Your injury may increase your risk of developing a blood clot,or DVT, in your arm or leg. This could potentially dislodge and travel to your lungs and become a life threatening condition called apulmonary embolus,or PE. You have been prescribed Lovenox or aspirin to be taken to prevent this. Frequent movement of the legs will also help prevent this from occurring. If you develop any new or worsening cough, chestpain, bloody sputum or shortness of breath, call 911 or go to the EmergencyRoom. Always keep your surgical incision/dressing clean and dry. If you experience increasing pain at your incision site, redness, swelling, increasing discharge, foul odors, or fevers (greater than 100.4), night sweats or chills you should call the office at the above number. If you feel this is an emergency you should be evaluated in the Emergency Department of a nearby hospital. Orthopedic Patient Instructions Summary: Weight Bearing: Toe-touch weightbearing Activity: Toe-touch weightbearing. Diet: Regular. Wound Care: Keep dressing clean and dry. Change as needed Anticoagulation: Lovenox or aspirin Pain Medication: Take only as needed. Ice, rest and elevation will be of great benefit. Please plan to follow-up raul Clark in 2 weeks. You will need to call the clinic [phone] to schedule this visit. Thank you far allowing me to participate in your care. Do not hesitate to call the office with any questions or concerns. Discharge Attestations Time Spent in Discharge Care*: greater than 30 min Quality Metrics Clinical Quality Measures [ No reported AMI, CVA or VTE this stay] Coding Level of Care Code Acute Chg FW DC note Diagnoses Alcohol withdrawal F10.239 Chronic hyponatremia E87.1 Periprosthetic hip fracture M97.8XXA; Z96.649 Diabetes mellitus type 2, diet-controlled E11.9 Postoperative anemia D64.9
[2021-12-12 12:00] VITALS: BP 151/87; PULSE 76; RESP 18; TEMP 36.6; O2SAT 98
--- NOTE | 2021-12-12 14:36 | PC.OT ---
Patient to be discharged; therefore, no treatment provided.
--- NOTE | 2021-12-12 15:29 | PC.NURSE ---
patient verbalized understanding of discharge instructions and home medications, and surgery precautions. discussed following up tomorrow with pts primary care provider to have his labs rechecked, and patient verbalizes understanding.
[2021-12-12 15:31] VITALS: BP 151/87; PULSE 76; RESP 18; TEMP 36.6; O2SAT 98
== END 2021-12-12 15:00 | disposition home health service (06) | DRG 481 ==
LOC: ER 01:02 → MEDSURG 01:26
PROVIDERS: Internal Medicine; Orthopaedic Surgery; Admitting Provider Family Medicine; Emergency Provider Nurse Practitioner Family; PCP Nurse Practitioner Family; Visit Provider Internal Medicine
PROC: 0QS604Z Reposition Right Upper Femur with Internal Fixation Device, Open Approach (ICD-10-PCS; principal; 2021-12-10 14:30)
DX: M97.01XA Periprosthetic fracture around internal prosthetic right hip joint, initial encounter (principal); E87.1 Hypo-osmolality and hyponatremia; F10.139 Alcohol abuse with withdrawal, unspecified; I13.0 Hypertensive heart and chronic kidney disease with heart failure and stage 1 through stage 4 chronic kidney disease, or unspecified chronic kidney disease; I50.40 Unspecified combined systolic (congestive) and diastolic (congestive) heart failure; D64.89 Other specified anemias; E11.22 Type 2 diabetes mellitus with diabetic chronic kidney disease; N18.9 Chronic kidney disease, unspecified; J44.9 Chronic obstructive pulmonary disease, unspecified; K21.9 Gastro-esophageal reflux disease without esophagitis; E11.51 Type 2 diabetes mellitus with diabetic peripheral angiopathy without gangrene; I48.91 Unspecified atrial fibrillation; I25.10 Atherosclerotic heart disease of native coronary artery without angina pectoris; N40.0 Benign prostatic hyperplasia without lower urinary tract symptoms; E66.9 Obesity, unspecified; Z68.38 Body mass index [BMI] 38.0-38.9, adult; Z96.643 Presence of artificial hip joint, bilateral; Z99.81 Dependence on supplemental oxygen; Z79.01 Long term (current) use of anticoagulants; Z79.02 Long term (current) use of antithrombotics/antiplatelets; Z95.5 Presence of coronary angioplasty implant and graft; Z87.891 Personal history of nicotine dependence
CPT/HCPCS: 36415; 36416; 51702; 71045; 73502; 73552; 76000; 80048; 80053; 80061; 80306; 80307; 81001; 82550; 82962; 83036; 83690; 83735; 83880; 84443; 84484; 85025; 85610; 87086; 87426; 87635; 93005; 94664; 96372; 97110; 97116; 97161; 97166; 97530; 99285; C1713; C9113; J0171; J0330; J0690; J1100; J1170; J1650; J1815; J1885; J2250; J2370; J2405; J2704; J2710; J3010; J3370; J3411; J3475; J3490; J7030; P9041; P9047

== ENCOUNTER 2021-12-13 10:20 | Emergency (ER) | payer MEDICARE, MEDICAID, SELFPAY ==
[2021-12-13 10:27] VITALS: BP 133/82; PULSE 75; RESP 18; O2SAT 100; BMI 37.9
--- NOTE | 2021-12-13 10:30 | XR_ITS ---
WS: [id number] HIP WITH PELVIS RIGHT TECHNIQUE: 3 views of the right hip with pelvis CLINICAL INFORMATION: pain/unable to bear weight COMPARISON: 12/10/21 FINDINGS: Repair of the previously described periprosthetic fracture with lateral plate and screw fixation and cerclage wires proximal femur. Stable displaced lesser trochanter fracture. Normal anatomic alignment . Vascular calcification. Osteopenia. XR/XR hip RT 2-3V wo/w pel* [id number] IMPRESSION: 1. Stable postoperative changes fixation of the periprosthetic RIGHT femoral f racture with lateral plate and screw fixation and cerclage wires. 2. Stable avulsion of the lesser trochanter. [place] classification: Na
[2021-12-13 10:44] VITALS: BP 133/82; PULSE 74; RESP 14; O2SAT 95
--- NOTE | 2021-12-13 11:26 | W.ED.EXTPRO ---
HPI - Extremity Problem General: Chief complaint: Extremity Problem,Nontraumatic Stated complaint: UNABLE TO WALK/ RT HIP REPLACEMENT Time Seen by Provider: 12/13/21 10:20 Source: patient Mode of arrival: EMS History of Present Illness: 66-year-old male presents emergency room complaining of right hip pain. Patient was here over the weekend and he had a fall resulting in a right hip fracture. Periprosthetic fracture it was repaired surgically he was discharged home yesterday he had been encouraged to stay and go to rehab but did not. He was mildly anemic as well. Has been fatigued at home but his biggest complaint is just pain and difficulty getting around he has a hard time getting out of chair even when he is using a lift chair and feels like he cannot really ambulate at all. MD Complaint: extremity pain Onset (ago): day(s) Pain Consistency: constant Location: right Quality: sharp Radiation: none Relieving factors: nothing Exacerbating factors: nothing Associated symptoms: Deny arthralgias, chest pain, fever(s), myalgias, rash or short of breath Context: recent surgery/procedure Review of Systems Const: Denies: fever(s) ENMT: Denies: throat pain, ear or mastoid pain, nasal discharge or nasal congestion Card: Denies: chest pain Resp: Denies: dyspnea, productive cough or non-productive cough GI: Denies: abdominal pain, nausea, vomiting, hematemesis, coffee ground emesis, diarrhea, constipation, bloating, hematochezia or melena : Denies: flank pain, dysuria, urinary frequency or urinary urgency Skin/Breast: Denies: rash PFSH ED PFSH: Medical History Alcohol abuse Anticoagulant long-term use Atrial fibrillation BPH (benign prostatic hyperplasia) BPH with obstruction/lower urinary tract symptoms CAD (coronary artery disease) Cardiomyopathy Carotid stenosis, bilateral Chronic prostatitis CKD (chronic kidney disease) COPD (chronic obstructive pulmonary disease) Dependence on continuous supplemental oxygen Diabetes Diet-controlled type 2 diabetes mellitus Hepatomegaly HTN (hypertension) Incomplete emptying of bladder Obesity Peripheral arterial disease Tobacco abuse Surgical History Hx of heart artery stent S/P carotid endarterectomy S/P hip replacement S/P PTCA (percutaneous transluminal coronary angioplasty) Family History Mother CAD (coronary artery disease) Diabetes Father , AGE 82 CAD (coronary artery disease) Hypertension Social History Quit status (tobacco): has quit using tobacco Former quit date comment: NOV 2019 Alcohol intake: current Alcohol intake frequency: 3 or more drinks per day Alcohol type: beer Desire information about alcohol rehabilitation?: No Counseling given: Yes Household members: spouse Marital status: Physical Exam Const: GENERAL APPEARANCE: cooperative and comfortable ORIENTATION/CONSCIOUSNESS: Yes awake, Yes oriented to person, Yes oriented to place and Yes oriented to time HENMT: COMMON NORMALS: normocephalic, atraumatic and hearing grossly normal bilaterally HEAD & SCALP: normocephalic and atraumatic Neck/C-Spine: COMMON NORMALS: no JVD Resp: COMMON NORMALS: normal respiratory effort, No retractions, No use of accessory muscles and clear to auscultation bilaterally AUSCULTATION: clear to auscultation bilaterally Cardio: COMMON NORMALS: no JVD, regular rate, regular rhythm and No murmurs present (Cardio) RATE: regular rate RHYTHM: regular rhythm GI: COMMON NORMALS: Soft to palpation and No hepatosplenomegaly present AUSCULTATION: Yes normoactive bowel sounds PALPATION: Yes Soft to palpation, No Tenderness to palpation present (GI), No Guarding due to palpation present (GI) and Yes No hepatosplenomegaly present Extremity: COMMON NORMALS: normal to inspection, capillary refill normal, no clubbing, cyanosis or edema, no calf tenderness and no pedal edema Neuro: SENSORIUM/ORIENTATION: Yes oriented to person, Yes oriented to place and Yes oriented to time Skin: COMMON NORMALS: no rashes or lesions noted GENERAL SKIN EXAM: no rashes or lesions noted Course Vital Signs: Vital signs: Vital Signs Pulse Rate 74 12/13/21 10:44 Respiratory Rate 14 12/13/21 10:44 Blood Pressure 133/82 12/13/21 10:44 Pulse Oximetry 95 12/13/21 10:44 MDM - Extremity (Nontraumatic) Medical Decision Making No acute finding this time. His hemoglobin is improved a little bit he had some mild hyponatremia yesterday which is also improved his kidney function is good. He has pain in the right hip. At this point he requires rehab is not really anything acute for hot requiring hospitalization. He is able to go to rehab on his Medicaid there is some logistical financial concerns for him however and he evidently did not want to pursue it that way. He is going to continue with some home health and follow-up with his primary care doctor if he changes mind about using the Medicaid benefit to go to rehab. Medical Records I reviewed the patient's medical records. Lab Data I reviewed the patient's lab results. : 12/13/21 10:57 12/13/21 12:02 Radiology Impressions Hip/Pelvis X-Ray 12/13/21 10:30 IMPRESSION: 1. Stable postoperative changes fixation of the periprosthetic RIGHT femoral fracture with lateral plate and screw fixation and cerclage wires. 2. Stable avulsion of the lesser trochanter. Tonnis classification: Na Laboratory Results WBC 9.4 10^3/uL (4.0-10.0) 12/13/21 10:57 RBC 2.35 10^6/uL (4.1-5.3) L 12/13/21 10:57 Hgb 7.6 g/dL (11.7-16.6) L 12/13/21 10:57 Hct 23.0 % (42.0-52.0) L 12/13/21 10:57 MCV 97.9 fl (80-94) H 12/13/21 10:57 MCH 32.3 pg (28.0-34.0) 12/13/21 10:57 MCHC 33.0 g/dL (30.0-36.0) 12/13/21 10:57 RDW 13.1 % (12.1-15.1) 12/13/21 10:57 Plt Count 204 10^3/cmm (130-400) 12/13/21 10:57 MPV 9.4 fL (7.4-10.4) 12/13/21 10:57 Neut % (Auto) 81.3 % 12/13/21 10:57 Lymph % (Auto) 5.4 % 12/13/21 10:57 [place] % (Auto) 12.3 % 12/13/21 10:57 Eos % (Auto) 0.2 % 12/13/21 10:57 Baso % (Auto) 0.1 % 12/13/21 10:57 Neut # (Auto) 7.67 10^3/uL (1.8-7.7) 12/13/21 10:57 Lymph # (Auto) 0.5 10^3/uL (0.8-4.8) L 12/13/21 10:57 [place] # (Auto) 1.2 10^3/uL (0.2-0.9) H 12/13/21 10:57 Eos # (Auto) 0.0 10^3/uL (0.0-0.8) 12/13/21 10:57 Baso # (Auto) 0.0 10^3/uL (0.0-0.1) 12/13/21 10:57 Nucleated RBC % (auto) 0 % 12/13/21 10:57 Nucleated RBCs # 0.0 /100WBC 12/13/21 10:57 Sodium 130 mmol/L (136-145) L 12/13/21 12:02 Potassium 3.5 mmol/L (3.5-5.1) 12/13/21 12:02 Chloride 97 mmol/L (98-107) L 12/13/21 12:02 Carbon Dioxide 25 mmol/L (22-29) 12/13/21 12:02 Anion Gap 11.5 (5-19) 12/13/21 12:02 BUN 9 mg/dL (8-23) 12/13/21 12:02 Creatinine 0.3 mg/dL (0.7-1.2) L 12/13/21 12:02 GFR Calculation 300.9 mL/min (90-130) H 12/13/21 12:02 Glucose 92 mg/dL (65-115) 12/13/21 12:02 Calculated Osmolality 268 mOsm/kg (285-295) L 12/13/21 12:02 Calcium 7.1 mg/dL (8.5-10.5) L 12/13/21 12:02 Discharge Plan Discharge Patient Disposition: Home Clinical Impression: Periprosthetic fracture around internal prosthetic right hip joint, subsequent encounter, CKD (chronic kidney disease), Anemia Condition: Stable Prescriptions: No Action pantoprazole 40 mg tablet,delayed release (DR/EC) 40 mg PO BID 0RF albuterol sulfate 2.5 mg /3 mL (0.083 %) solution for nebulization 2.5 mg inhalation QID PRN (Reason: shortness of breath or wheezing) Qty: 180 1RF clopidogrel [Plavix] 75 mg tablet 75 mg PO DAILY Qty: 90 3RF hydralazine 100 mg tablet 100 mg PO TID Qty: 270 3RF Spiriva with HandiHaler 18 mcg capsule, w/inhalation device 1 cap INHALATION DAILY Qty: 90 1RF Rx Instructions: puncture 1 cap using device; one dose = 2 inhalations metoprolol succinate 25 mg tablet extended release 24 hr 12.5 mg PO DAILY Qty: 45 3RF Taztia XT 120 mg capsule,extended release 24 hr 120 mg PO DAILY Qty: 90 3RF warfarin 5 mg tablet See Rx Instructions .ROUTE .COMPLEX Qty: 108 0RF Dose Instruction: TAKE 1 TABLET BY MOUTH ON MONDAY, MONDAY, AND MONDAY AND 1 1/2 TABLETS ON MONDAY, MONDAY, MONDAY, AND MONDAY Rx Instructions: TAKE 1 TABLET BY MOUTH ON MONDAY, MONDAY, AND MONDAY AND 1 1/2 TABLETS ON MONDAY, MONDAY, MONDAY, AND MONDAY nitroglycerin [Nitrostat] 0.4 mg tablet, sublingual 0.4 mg SUBLINGUAL Q5M PRN (Reason: CHEST PAINS) Qty: 30 0RF Rx Instructions: do not exceed 3 doses per episode triamcinolone acetonide 0.1 % lotion 1 applic topical BID Qty: 60 0RF (DME) blood sugar diagnostic Strip MISCELLANEOUS 0RF torsemide 20 mg tablet 20 mg PO DAILY 0RF Flomax 0.4 mg capsule 0.4 mg PO BID 0RF lisinopril 40 mg Tablet 40 mg PO DAILY 0RF Discharge Orders: Discharge ED (Routine); Ordered 12/13/21 Ordered By: Giuliano Milligan Referrals: Chantelle Vides FNP [Primary Care Provider] - Discharge Diet: Usual diet Discharge Activity: Limit activity as instructed Patient Instructions: Opioid Safety Activity Restrictions/Additional Instructions: Follow-up with your primary care doctor they can help make arrangements either for home health care and/or admission to rehab. Coding Level of Care Code ED Senior Ui Ux Designer for Chg Fwd Exam Comprehensive
[2021-12-13 11:35] LABS: Basophils % 0.1 %; Eosinophils % 0.2 %; Hemoglobin 7.6 g/dL (11.7-16.6); Lymphocytes # 0.5 10^3/uL (0.8-4.8); Lymphocytes % 5.4 %; Mean Corpuscular Hemoglobin 32.3 pg (28.0-34.0); Mean Corpuscular Volume 97.9 fl (80-94); Mean Platelet Volume 9.4 fL (7.4-10.4); Monocytes # 1.2 10^3/uL (0.2-0.9); Monocytes % 12.3 %; Neutrophils # 7.67 10^3/uL (1.8-7.7); Neutrophils % 81.3 %; Nucleated Red Blood Cells % 0 %; Platelet Count 204 10^3/cmm (130-400); Red Blood Count 2.35 10^6/uL (4.1-5.3); Red Cell Distribution Width 13.1 % (12.1-15.1); White Blood Count 9.4 10^3/uL (4.0-10.0)
[2021-12-13 12:51] LABS: Anion Gap 11.5 (5-19); Blood Urea Nitrogen 9 mg/dL (8-23); Calcium 7.1 mg/dL (8.5-10.5); Carbon Dioxide 25 mmol/L (22-29); Chloride 97 mmol/L (98-107); Glomerular Filtration Rate 300.9 mL/min (90-130); Glucose 92 mg/dL (65-115); Osmolality Calculated 268 mOsm/kg (285-295); Potassium 3.5 mmol/L (3.5-5.1); Sodium 130 mmol/L (136-145)
--- NOTE | 2021-12-13 14:08 | DCPLANNER ---
wireless construction manager was asked to speak with patient about detention home placement. Patient has been in the hospital for 2 midnights, then was discharged home. Patient realized after being at home that he really needed to go into a detention facility. Patient has not been in the hospital for 3 midnights, patient does not qualify to be admitted to the hospital at this time.
== END 2021-12-13 14:59 | disposition home or self-care (01) ==
PROVIDERS: Emergency Provider Family Medicine; PCP Nurse Practitioner Family
DX: M97.01XA Periprosthetic fracture around internal prosthetic right hip joint, initial encounter (principal); E11.22 Type 2 diabetes mellitus with diabetic chronic kidney disease; I12.9 Hypertensive chronic kidney disease with stage 1 through stage 4 chronic kidney disease, or unspecified chronic kidney disease; N18.9 Chronic kidney disease, unspecified; Z79.01 Long term (current) use of anticoagulants; D64.9 Anemia, unspecified; I25.10 Atherosclerotic heart disease of native coronary artery without angina pectoris; J44.9 Chronic obstructive pulmonary disease, unspecified; Z87.891 Personal history of nicotine dependence
CPT/HCPCS: 36415; 73502; 80048; 85025; 99283

== ENCOUNTER 2021-12-17 15:19 | Outpatient (CLI) | payer MEDICARE, MEDICAID, SELFPAY ==
[2021-12-17 15:43] LABS: Basophils % 0.2 %; Eosinophils # 0.1 10^3/uL (0.0-0.8); Hematocrit 22.5 % (42.0-52.0); Hemoglobin 7.4 g/dL (11.7-16.6); Lymphocytes # 0.6 10^3/uL (0.8-4.8); Lymphocytes % 8.8 %; Mean Corpuscular HGB Conc 32.9 g/dL (30.0-36.0); Mean Corpuscular Volume 97.4 fl (80-94); Mean Platelet Volume 8.7 fL (7.4-10.4); Monocytes # 1.1 10^3/uL (0.2-0.9); Monocytes % 17.5 %; Neutrophils # 4.54 10^3/uL (1.8-7.7); Neutrophils % 69.8 %; Nucleated Red Blood Cells % 0 %; Platelet Count 294 10^3/cmm (130-400); Red Blood Count 2.31 10^6/uL (4.1-5.3); White Blood Count 6.5 10^3/uL (4.0-10.0)
== END 2021-12-17 15:20 | disposition home or self-care (01) ==
LOC: LAB 15:26
PROVIDERS: PCP Nurse Practitioner Family; Visit Provider Orthopaedic Surgery
DX: M97.8XXA Periprosthetic fracture around other internal prosthetic joint, initial encounter (principal)
CPT/HCPCS: 85025

== ENCOUNTER 2021-12-27 13:42 | Outpatient (CLI) | payer MEDICARE, MEDICAID, SELFPAY ==
[2021-12-27 14:04] LABS: Basophils % 0.4 %; Eosinophils # 0.1 10^3/uL (0.0-0.8); Hematocrit 27.1 % (42.0-52.0); Hemoglobin 8.6 g/dL (11.7-16.6); Lymphocytes # 0.6 10^3/uL (0.8-4.8); Lymphocytes % 10.9 %; Mean Corpuscular HGB Conc 31.7 g/dL (30.0-36.0); Mean Corpuscular Volume 97.8 fl (80-94); Mean Platelet Volume 8.6 fL (7.4-10.4); Monocytes # 0.8 10^3/uL (0.2-0.9); Monocytes % 14.4 %; Neutrophils # 3.87 10^3/uL (1.8-7.7); Neutrophils % 71.2 %; Nucleated Red Blood Cells % 0 %; Platelet Count 324 10^3/cmm (130-400); Red Blood Count 2.77 10^6/uL (4.1-5.3); White Blood Count 5.4 10^3/uL (4.0-10.0)
== END 2021-12-27 13:43 | disposition home or self-care (01) ==
PROVIDERS: PCP Nurse Practitioner Family; Visit Provider Family Medicine
DX: M97.8XXA Periprosthetic fracture around other internal prosthetic joint, initial encounter (principal)
CPT/HCPCS: 85025

== ENCOUNTER → 2022-01-25 12:51 | Outpatient (BNVA) | payer MEDICARE, MEDICAID, SELFPAY | PROVIDERS: PCP Nurse Practitioner Family; Visit Provider Orthopaedic Surgery | DX: Z48.89 Encounter for other specified surgical aftercare (principal) | CPT/HCPCS: 73502 ==

== ENCOUNTER → 2022-03-24 13:02 | Outpatient (BNVA) | payer MEDICARE, MEDICAID, SELFPAY | PROVIDERS: PCP Nurse Practitioner Family; Visit Provider Orthopaedic Surgery | DX: S72.111D Displaced fracture of greater trochanter of right femur, subsequent encounter for closed fracture with routine healing (principal); X58.XXXD Exposure to other specified factors, subsequent encounter | CPT/HCPCS: 73502; 99212 ==

== ENCOUNTER 2022-04-04 09:38 | Outpatient (CLI) | payer MEDICARE, MEDICAID, SELFPAY ==
--- NOTE | 2022-04-04 10:00 | USCV_ITS ---
Alberto Trujillo Age: 66 Gender: M : 1955 Exam Date: 04/04/2022 10:32 Ordering Phys: Davin Gonzalez M.D ([email or web address]) Technologist: SHAYAN Exam Location: [facility] – [place] Indication: Occlusion and stenosis of bilateral carotid arteries Risk Factors: Previous Vascular Surgery: Right Brachial BP: / Left Brachial BP: / Right Left Velocity (cm/s) Spectral Plaque Velocity (cm/s) Spectral Plaque Syst/Diast Broadening Syst/Diast Broadening 82.70/ 11.00 Prox CCA 57.80 / 13.10 59.50/ 8.80 Mid CCA 42.00 / 11.40 46.10/ 7.70 Distal CCA 37.60 / 8.60 41.00/ 7.70 Prox ICA 151.55/ 36.55 36.50/ 8.90 Mid ICA 91.30 / 17.30 50.20/ 12.00 Distal ICA 36.40 / 11.70 79.50 ECA 115.60 0.84 ICA/CCA 3.60 Antegrade Vertebral Antegrade 55.00/ 15.00 cm/s 55.50/ 13.50 cm/s Tri Subclavian Bi 193.0 106.6 0 0 CONCLUSIONS Right ICA stenosis <50%. Left ICA stenosis 50-69%. Moderate atheromatous plaque left carotid bulb/ICA. Normal antegrade Doppler flow noted in the right vertebral artery. Normal antegrade Doppler flow noted in the left vertebral artery. Rafal Harp MD (Electronically Signed) Final Date: 05 April 2022 10:23 S
== END 2022-04-04 09:39 | disposition home or self-care (01) ==
LOC: RAD 09:40
PROVIDERS: PCP Nurse Practitioner Family; Visit Provider Internal Medicine
DX: I65.23 Occlusion and stenosis of bilateral carotid arteries (principal); I25.119 Atherosclerotic heart disease of native coronary artery with unspecified angina pectoris; I73.9 Peripheral vascular disease, unspecified; I48.91 Unspecified atrial fibrillation; Z87.891 Personal history of nicotine dependence
CPT/HCPCS: 93880; 99214

== ENCOUNTER → 2022-04-26 11:28 | Outpatient (BNVA) | payer MEDICARE, MEDICAID, SELFPAY | PROVIDERS: PCP Nurse Practitioner Family; Visit Provider Nurse Practitioner Family | DX: I10 Essential (primary) hypertension (principal); D64.9 Anemia, unspecified | CPT/HCPCS: 80053; 80061; 85025 ==

== ENCOUNTER → 2022-07-11 14:57 | Outpatient (BNVA) | payer MEDICARE, MEDICAID, SELFPAY | PROVIDERS: PCP Nurse Practitioner Family; Visit Provider Nurse Practitioner Family | DX: M79.642 Pain in left hand (principal); M25.532 Pain in left wrist; S69.92XA Unspecified injury of left wrist, hand and finger(s), initial encounter | CPT/HCPCS: 84550 ==

== ENCOUNTER 2022-08-05 10:53 | Inpatient (IN) | payer MEDICARE, MEDICAID, SELFPAY ==
[2022-08-05] VITALS (11 sets, daily range): BP systolic 112–155; BP diastolic 65–79; PULSE 62–101; RESP 16–19; TEMP 36.4–36.5; O2SAT 97–98; BMI 35.5
--- NOTE | 2022-08-05 11:13 | ED_ITS ---
HPI - General Adult General: Chief complaint: Abdominal Pain Stated complaint: pain on left side Time Seen by Provider: 08/05/22 10:56 History of Present Illness: Patient is a 67-year-old male with history of hypertension, COPD, atrial fibrillation on warfarin, CAD, BPH who presents the emergency room for evaluation of right-sided lateral chest pain. Patient tells me that he has been having pain for the last year but has acutely worsened in the last week. Patient reports right upper quadrant abdominal pain in addition. Patient says that the pain is so significant that he has been unable to get any sleep. Patient reports diarrhea, without melena hematochezia. Patient benny liconad he is in the process of getting his gallbladder checked out does not have a definitive date for an ultrasound. Patient has no fever/chills, cough, runny nose sore throat or sore throat. Patient denies any left-sided chest pain, pleuritic chest pain, productive phlegm, or shortness of breath or palpitation. Patient denies any other abdominal complaints with nausea/vomiting, diarrhea, or other focal abdominal pain. Patient has no prior history renal colic. No prior abdominal surgeries. Patient is compliant with warfarin. Onset:acute on chronic for the last week Duration:ongoing Location:home Severity:moderate Associated symptoms: Deny chest pain, dyspnea, nausea, rash, palpitations or vomiting Review of Systems Const: Denies: fever(s) or chills Eyes: Denies: change in vision ENMT: Denies: mouth pain Card: Denies: chest pain or palpitations Resp: Denies: dyspnea or non-productive cough GI: Denies: abdominal pain, nausea, vomiting or diarrhea : Denies: dysuria Musc: Denies: extremity pain Skin/Breast: Denies: rash or new lesions Neuro: Denies: weakness in extremities Psych: Reports: other (Normal mood) Sarath/Lymph: Denies: easy bruising PFSH ED PFSH: Medical History Alcohol abuse Anticoagulant long-term use Atrial fibrillation BPH (benign prostatic hyperplasia) BPH with obstruction/lower urinary tract symptoms CAD (coronary artery disease) Cardiomyopathy Carotid stenosis, bilateral Chronic prostatitis CKD (chronic kidney disease) COPD (chronic obstructive pulmonary disease) Dependence on continuous supplemental oxygen Diabetes Diet-controlled type 2 diabetes mellitus Hepatomegaly HTN (hypertension) Incomplete emptying of bladder Obesity Peripheral arterial disease Tobacco abuse Surgical History Hx of heart artery stent S/P carotid endarterectomy S/P hip replacement S/P PTCA (percutaneous transluminal coronary angioplasty) Family History Mother CAD (coronary artery disease) Diabetes Father , AGE 82 CAD (coronary artery disease) Hypertension Social History Smoking and tobacco status: current every day smoker Quit status (tobacco): has quit using tobacco Former quit date comment: NOV 2019 Alcohol intake: current Alcohol intake frequency: 3 or more drinks per day Alcohol type: beer Desire information about alcohol rehabilitation?: No Counseling given: Yes Household members: spouse Marital status: Physical Exam Const: COMMON NORMALS: alert HENMT: COMMON NORMALS: atraumatic HEAD & SCALP: atraumatic MOUTH: moist mucous membranes not abnormal Eye: COMMON NORMALS: EOMs intact bilaterally and conjunctivae normal CONJUNCTIVA: Yes conjunctivae normal Neck/C-Spine: COMMON NORMALS: full ROM and supple Resp: COMMON NORMALS: normal respiratory effort and clear to auscultation bilaterally AUSCULTATION: clear to auscultation bilaterally Cardio: COMMON NORMALS: regular rate RATE: regular rate GI: COMMON NORMALS: Soft to palpation and non-tender PALPATION: Yes Soft to palpation Extremity: COMMON NORMALS: full ROM Neuro: SENSORIUM/ORIENTATION: Yes alert MOTOR EXAM: No Abnormal motor strength present and Other motor observations present (no focal motor deficits) Psych: COMMON NORMALS: speech normal SPEECH: Yes normal speech MOOD & AFFECT: Yes euthymic mood Course Vital Signs: Vital signs: Vital Signs Temperature 97.6 F 08/05/22 11:14 Pulse Rate 101 H 08/05/22 11:14 Respiratory Rate 19 H 08/05/22 11:14 Blood Pressure 112/79 08/05/22 11:14 Pulse Oximetry 98 08/05/22 11:14 Oxygen Delivery Me thod 08/05/22 11:14 [facility] - General Adult Medical Decision Making Patient is a 67-year-old male with history of hypertension, COPD, atrial fibrillation on warfarin, CAD, BPH who presents the emergency room for evaluation of right-sided lateral chest pain. Patient is hemodynamically stable with complaints of minimal pain at this time. X-ray chest appears to be clear. Lab work-up shows sodium 119 down from baseline 130 a few month ago. Rest of the lab are largely within normal limit. Ultrasound gallbladder negative for any acute findings. Patient with in the hospital for further management hyponatremia and R sided chest pain. Disposition: admission Lab Data : 08/05/22 11:15 08/05/22 11:15 Radiology Impressions Gallbladder Ultrasound 08/05/22 11:13 IMPRESSION: 1. No cholelithiasis or bile duct dilatation. 2. Mild diffuse gallbladder wall thickening is similar to the prior study. May be related to hepatocellular disease. No evidence for acute cholecystitis. Laboratory Results WBC 5.3 10^3/uL (4.0-10.0) 08/05/22 11:15 RBC 4.63 10^6/uL (4.1-5.3) 08/05/22 11:15 Hgb 13.9 g/dL (11.7-16.6) 08/05/22 11:15 Hct 40.0 % (42.0-52.0) L 08/05/22 11:15 MCV 86.4 fl (80-94) 08/05/22 11:15 MCH 30.0 pg (28.0-34.0) 08/05/22 11:15 MCHC 34.8 g/dL (30.0-36.0) 08/05/22 11:15 RDW 14.6 % (12.1-15.1) 08/05/22 11:15 Plt Count 177 10^3/cmm (130-400) 08/05/22 11:15 MPV 9.1 fL (7.4-10.4) 08/05/22 11:15 Neut % (Auto) 78.7 % 08/05/22 11:15 Lymph % (Auto) 9.1 % 08/05/22 11:15 [place] % (Auto) 11.6 % 08/05/22 11:15 Eos % (Auto) 0.0 % 08/05/22 11:15 Baso % (Auto) 0.2 % 08/05/22 11:15 Neut # (Auto) 4.15 10^3/uL (1.8-7.7) 08/05/22 11:15 Lymph # (Auto) 0.5 10^3/uL (0.8-4.8) L 08/05/22 11:15 [place] # (Auto) 0.6 10^3/uL (0.2-0.9) 08/05/22 11:15 Eos # (Auto) 0.0 10^3/uL (0.0-0.8) 08/05/22 11:15 Baso # (Auto) 0.0 10^3/uL (0.0-0.1) 08/05/22 11:15 Nucleated RBC % (auto) 0 % 08/05/22 11:15 Nucleated RBCs # 0.0 /100WBC 08/05/22 11:15 PT 16.00 SECONDS (12.1-14.9) H 08/05/22 11:15 INR 1.25 (0.8-1.2) H 08/05/22 11:15 APTT 37.0 SECONDS (23.9-36.7) H 08/05/22 11:15 D-Dimer Cancelled 08/05/22 11:15 Sodium 119 mmol/L (136-145) L* 08/05/22 11:15 Potassium 3.3 mmol/L (3.5-5.1) L 08/05/22 11:15 Chloride 74 mmol/L (98-107) L 08/05/22 11:15 Carbon Dioxide 30 mmol/L (22-29) H 08/05/22 11:15 Anion Gap 18.3 (5-19) 08/05/22 11:15 BUN 13 mg/dL (8-23) 08/05/22 11:15 Creatinine 0.6 mg/dL (0.7-1.2) L 08/05/22 11:15 GFR Calculation 134.8 mL/min (90-130) H 08/05/22 11:15 Glucose 105 mg/dL (65-115) 08/05/22 11:15 Calculated Osmolality 248 mOsm/kg (285-295) L 08/05/22 11:15 Calcium 8.4 mg/dL (8.5-10.5) L 08/05/22 11:15 Total Bilirubin 0.8 mg/dL (0.15-1.2) 08/05/22 11:15 AST 40 U/L (0-40) 08/05/22 11:15 ALT 24 U/L (0-41) 08/05/22 11:15 Alkaline Phosphatase 101 U/L (40-130) 08/05/22 11:15 Troponin T Baseline 21 ng/L (0-15) H 08/05/22 11:15 Total Protein 7.1 g/dL (6.6-8.7) 08/05/22 11:15 Albumin 3.5 g/dL (3.5-5.2) 08/05/22 11:15 Globulin 3.6 g/dL (1.3-4.6) 08/05/22 11:15 Lipase 28 U/L (13-60) 08/05/22 11:15 Urine Color Yellow (Yellow) 08/05/22 12:25 Urine Appearance Clear (CLEAR) 08/05/22 12:25 Urine pH 7 (5-7) 08/05/22 12:25 Ur Specific [place] 1.005 (1.005-1.030) 08/05/22 12:25 Urine Protein Neg (Negative) 08/05/22 12:25 Urine Glucose (UA) Norm (Normal) 08/05/22 12:25 Urine Ketones Negative (Negative) 08/05/22 12:25 Urine Blood Neg (Negative) 08/05/22 12:25 Urine Nitrate Negative (Negative) 08/05/22 12:25 Urine Bilirubin Neg (Negative) 08/05/22 12:25 Urine Urobilinogen Norm mg/dL (Negative) 08/05/22 12:25 Ur Leukocyte Esterase Negative (Negative) 08/05/22 12:25 Imaging Data Other Imaging: Radiologist's impression: [address] [address] XRay Report Signed Patient: Alberto Trujillo Unit #: [id number] : 1955 Age/Sex: 67 / M ADM Date: 08/05/22 Loc: ER Room/Bed: Attending Dr: Ordering Provider/Ordering MD: Elvia Wynn MD Date of Service: 08/05/22 Procedure(s): XR chest 1V portable [id number] Accession Number(s): [id number] Report Number: [id number] PROCEDURE INFORMATION: Exam: XR Chest Exam date and time: 08/05/2022 12:31 PM Age: 67 years old Clinical indication: Pain; Angina pectoris; Additional info: Chest pain TECHNIQUE: Imaging protocol: Radiologic exam of the chest. Views: 1 view. COMPARISON: CR XR chest 1V portable [id number] 12/10/2021 12:46 AM FINDINGS: Lungs: Small benign calcified granuloma is present in the right upper lobe. Otherwise lungs are clear. Pleural spaces: Unremarkable. No pleural effusion. No pneumothorax. Heart/Mediastinum: The cardiac silhouette is enlarged but unchanged. Bones/joints: Unremarkable. XR/XR chest 1V portable [id number] IMPRESSION: No acute abnormality. ? Dictated By: Garcia Mclean Signed By: Gracia Mclean Signed Date/Time: 08/05/22 1311 DD/ [address] [place] [address] Ultrasound Report Signed Patient: Alberto Trujillo Jr Unit #: [id number] : 1955 Age/Sex: 67 / M ADM Date: 08/05/22 Loc: ER Room/Bed: Attending Dr: Ordering Provider/Ordering MD: Elvia Wynn MD Date of Service: 08/05/22 Procedure(s): US gall bladder [id number] Accession Number(s): [id number] Report Number: [id number] WS: [id number] RIGHT UPPER QUADRANT ULTRASOUND HISTORY: R sided chest pain COMPARISON: 08/20/2020 Liver: 15.6 cm in length. Normal size liver. No bile duct dilatation or mass. Portal Vein: Normal hepatopetal flow with monophasic waveform. Gallbladder: Moderately well distended gallbladder. There is mild diffuse gall bladder wall thickening, similar to the prior exam. No pericholecystic fluid. No cholelithiasis or sludge. CBD: 0.5 cm Pancreas: Normal size and echogenicity. Right kidney: 14.7 cm in length. Normal size and echogenicity. No definite abnormality identified. No hydronephrosis or mass. Aorta and IVC: Unremarkable abdominal aorta and IVC. No ascites. US/US gall bladder [id number] IMPRESSION: ? 1.? No cholelithiasis or bile duct dilatation. 2.? Mild diffuse gallbladder wall thickening is similar to the prior study. May be related to hepatocellular disease. No evidence for acute cholecystitis. ? Dictated By: Veronika Dennison DO Signed By: Veronika Dennison DO Signed Date/Time: 08/05/228 DD/ 14 Discharge Plan Discharge Patient Disposition: Admitted As Inpatient Clinical Impression: Abdominal pain, Hyponatremia Condition: Stable Discharge Diet: Advance as tolerated Discharge Activity: Increase activity as tolerated Coding Level of Care Code ED Popcorn Attendant for Chg Fwd Exam Comprehensive
--- NOTE | 2022-08-05 11:14 | ECG_ITS ---
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 Measurements Intervals [place] Rate: 65 P: KS: QRS: -67 QRSD: 152 T: 9 QT: 470 QTc: 490 Interpretive Statements ATRIAL FIBRILLATION RIGHT BUNDLE BRANCH BLOCK [120+ ms QRS DURATION, UPRIGHT V1, 40+ ms S IN I/aVL/V4/V5/V6] LEFT ANTERIOR FASCICULAR BLOCK [QRS AXIS <= -45, QR IN I, RS IN II] Compared to ECG 12/10/2021 01:24:21 Myocardial infarct finding no longer present Electronically Signed On 08-05-2022 14:47:25 CDT by Davin Gonzalez M.D. [email or web address]
--- NOTE | 2022-08-05 11:14 | XRR_ITS ---
PROCEDURE INFORMATION: Exam: XR Chest Exam date and time: 08/05/2022 12:31 PM Age: 67 years old Clinical indication: Pain; Angina pectoris; Additional info: Chest pain TECHNIQUE: Imaging protocol: Radiologic exam of the chest. Views: 1 view. COMPARISON: CR XR chest 1V portable [id number] 12/10/2021 12:46 AM FINDINGS: Lungs: Small benign calcified granuloma is present in the right upper lobe. Otherwise lungs are clear. Pleural spaces: Unremarkable. No pleural effusion. No pneumothorax. Heart/Mediastinum: The cardiac silhouette is enlarged but unchanged. Bones/joints: Unremarkable. XR/XR chest 1V portable [id number] IMPRESSION: No acute abnormality.
--- NOTE | 2022-08-05 11:20 | PC.NURSE ---
PT is on continuous CM and sp02 monitor. Pt c/o of constant pain for the past week after eating. Pt is AOx4 with bilateral clear breath sounds and equal chest rise. Skin is warm and dry. Pt is on NC with 2L. Call light is within reach.
[2022-08-05 11:24] LABS: Basophils % 0.2 %; Hemoglobin 13.9 g/dL (11.7-16.6); Lymphocytes # 0.5 10^3/uL (0.8-4.8); Lymphocytes % 9.1 %; Mean Corpuscular HGB Conc 34.8 g/dL (30.0-36.0); Mean Corpuscular Volume 86.4 fl (80-94); Mean Platelet Volume 9.1 fL (7.4-10.4); Monocytes # 0.6 10^3/uL (0.2-0.9); Monocytes % 11.6 %; Neutrophils # 4.15 10^3/uL (1.8-7.7); Neutrophils % 78.7 %; Nucleated Red Blood Cells % 0 %; Platelet Count 177 10^3/cmm (130-400); Red Blood Count 4.63 10^6/uL (4.1-5.3); Red Cell Distribution Width 14.6 % (12.1-15.1); White Blood Count 5.3 10^3/uL (4.0-10.0)
[2022-08-05 11:33] LABS: INR 1.25 (0.8-1.2)
[2022-08-05 11:35] LABS: Troponin(5th) Baseline 21 ng/L (0-15)
[2022-08-05 11:37] LABS: Alanine Aminotransferase 24 U/L (0-41); Albumin Level 3.5 g/dL (3.5-5.2); Alkaline Phosphatase 101 U/L (40-130); Anion Gap 18.3 (5-19); Aspartate Amino Transferase 40 U/L (0-40); Blood Urea Nitrogen 13 mg/dL (8-23); Calcium 8.4 mg/dL (8.5-10.5); Carbon Dioxide 30 mmol/L (22-29); Chloride 74 mmol/L (98-107); Globulin 3.6 g/dL (1.3-4.6); Glomerular Filtration Rate 134.8 mL/min (90-130); Glucose 105 mg/dL (65-115); Lipase 28 U/L (13-60); Osmolality Calculated 248 mOsm/kg (285-295); Potassium 3.3 mmol/L (3.5-5.1); Total Bilirubin 0.8 mg/dL (0.15-1.2); Total Protein 7.1 g/dL (6.6-8.7)
[2022-08-05 11:42] LABS: Sodium 119 mmol/L (136-145)
[2022-08-05] MEDS: sodium chloride 0.9% 1,000 ML 999 ML IV (12:31)
[2022-08-05 12:38] LABS: Add Urine Microscopic? NO; Charge for UA Resulting for Rev
[2022-08-05 12:43] LABS: Bilirubin Urine Neg (Negative); Blood Urine Neg (Negative); Glucose Urine UA Norm (Normal); Ketones Urine Negative (Negative); Leukocyte Esterase Urine Negative (Negative); Nitrate Urine Negative (Negative); Protein Urine Neg (Negative); Specific Gravity, Urine 1.005 (1.005-1.030); Urine Appearance Clear (CLEAR); Urine Color Yellow (Yellow); Urobilinogen Urine Norm (Negative); pH Urine 7 (5-7)
--- NOTE | 2022-08-05 12:54 | CT_ITS ---
WS: [id number] CTA OF THE CHEST WITH PULMONARY EMBOLISM PROTOCOL TECHNIQUE: High-resolution contrast enhanced CTA of the chest with coronal and sagittal reformatted i mages with pulmonary embolism protocol. MIP images are also reviewed. CLINICAL INFORMATION: per dr Cortez COMPARISON: None. DLP: 509.[address] scans at [facility] use at least one of these dose optimization techniques: automated e xposure control; mA and/or kV adjustment per patient size (includes targeted exams where dose is matc hed to clinical indication); or iterative reconstruction. FINDINGS: Proximal main pulmonary arteries are normal. Normal segmental and subsegmental pulmonary arteries. No evidence of pulmonary embolus. Normal caliber thoracic aorta. Aortic Calcification. Coronary calcification. No mediastinal or hilar lymphadenopathy. Small esophageal hiatal hernia. Adrenal glands are normal. Partially evaluated RIGHT renal cyst measuring 1.5 CM. Moderate thoracic kyphosis with chronic anterior wedging in the mid tho racic spine. Endplate Schmorl's nodes. Moderate chronic emphysematous changes. Calcified granuloma RI GHT upper lobe. CT/CT angio chest PE protcl [id number] IMPRESSION: 1. No evidence of pulmonary embolus. 2. Moderate chronic emphysematous changes. No acute pulmonary infiltrates. No focal pneumonia or pleural fluid. 3. Cardiomegaly. 4. Small esophageal hiatal hernia. 5. No other acute findings.
--- NOTE | 2022-08-05 12:57 | PM.HP ---
Providers/Chief Complaint Primary Care Provider: CARMELA Bello Chief Complaint: pain on left side History of Present Illness Alberto Trujillo Jr is a 67 year old male who has history of chronic hyponatremia, CHF, hypertension, presented today for generalized weakness and right-sided chest pain. Patient does endorse history of GERD and hiatal hernia, he has been experiencing symptoms of right-sided chest pain since Monday which she is describing stabbing pain and he is able to pinpoint and locate the area of pain. He has not noticed diaphoresis, he has been experiencing diarrhea along emesis. He presented to the hospital because he is getting fatigued and lethargic and has been taking diuretics despite diarrhea and vomiting. In the ER he has been diagnosed with acute on chronic hyponatremia, clinically looks dry I have started him on normal saline 30 mill per hour requested urine and serum osmolarity, TSH uric acid BNP Requested CT chest Review of Systems Const: Reports: body aches, fatigue and malaise Eyes: Denies: change in vision ENMT: Denies: throat pain Card: Reports: chest pain Resp: Reports: dyspnea GI: Reports: vomiting and diarrhea : Denies: flank pain Musc: Denies: neck pain Skin/Breast: Denies: rash Neuro: Reports: headache(s) Psych: Denies: anxiety Endo: Denies: polyuria Sarath/Lymph: Denies: easy bruising All/Imm: Denies: urticaria Medications/Allergies Home Medications Medication Instructions Recorded Confirmed Last Taken Type pantoprazole 40 mg tablet,delayed 40 mg PO BID PRN Acid Reflux 03/25/20 08/05/22 07/16/20 History release albuterol sulfate 2.5 mg/3 mL 2.5 mg (3 mL) inhalation QID PRN 09/29/20 08/05/22 03/05/21 06:00 Rx (0.083 %) solution for nebulization shortness of breath or wheezing #180 mL nitroglycerin 0.4 mg sublingual 0.4 mg sublingual Q5M PRN CHEST 10/28/21 08/05/22 Unknown Rx tablet (Nitrostat) PAINS #30 tabs blood sugar diagnostic 12/10/21 08/05/22 Unknown History triamcinolone acetonide 0.1 % See Rx Instructions .Route 02/28/22 08/05/22 Unknown Rx lotion .COMPLEX #60 mL warfarin 5 mg tablet See Rx Instructions .Route 07/29/22 08/05/22 08/04/22 Rx .COMPLEX #108 tabs aspirin 81 mg tablet,delayed 81 mg PO QAM 08/05/22 08/05/22 08/05/22 History release (Adult Low Dose Aspirin) diltiazem HCl 120 mg capsule,24 120 mg PO BEDTIME 08/05/22 08/05/22 08/04/22 History hr,extended release (Taztia XT) hydralazine 100 mg tablet 100 mg PO TID@06,,08/05/22 08/05/22 08/05/22 History latanoprost 0.005 % eye drops 1 drp ophthalmic (eye) QPM 08/05/22 08/05/22 Unknown History lisinopril 40 mg tablet 40 mg PO QAM 08/05/22 08/05/22 08/05/22 History metoprolol succinate 25 mg 12.5 mg PO QAM 08/05/22 08/05/22 08/05/22 History tablet,extended release 24 hr tamsulosin 0.4 mg capsule 0.4 mg PO BID 08/05/22 08/05/22 08/05/22 06:00 History tiotropium bromide 18 mcg capsule 1 cap inhalation DAILY PRN unknown 08/05/22 08/05/22 Unknown History with inhalation device (Spiriva with HandiHaler) torsemide 20 mg tablet 10 mg PO BID 08/05/22 08/05/22 08/05/22 History 10 mg Allergies Allergy/AdvReac Type Severity Reaction Status Date / Time adhesive Allergy ALGY-Rash Verified 08/05/22 11:41 Knaqhxz-JIJ-OmN Reductase Allergy unknown Verified 08/05/22 11:41 Inhibitor [Iehoynp-Yhf-Euq Reductase Inhibitor] PFSH Acute PFSH: Medical History Alcohol abuse Anticoagulant long-term use Atrial fibrillation BPH (benign prostatic hyperplasia) BPH with obstruction/lower urinary tract symptoms CAD (coronary artery disease) Cardiomyopathy Carotid stenosis, bilateral Chronic prostatitis CKD (chronic kidney disease) COPD (chronic obstructive pulmonary disease) Dependence on continuous supplemental oxygen Diabetes Diet-controlled type 2 diabetes mellitus Hepatomegaly HTN (hypertension) Incomplete emptying of bladder Obesity Peripheral arterial disease Tobacco abuse Surgical History Hx of heart artery stent S/P carotid endarterectomy S/P hip replacement S/P PTCA (percutaneous transluminal coronary angioplasty) Family History Mother CAD (coronary artery disease) Diabetes Father , AGE 82 CAD (coronary artery disease) Hypertension Social History Smoking and tobacco status: current every day smoker Quit status (tobacco): has quit using tobacco Former quit date comment: NOV 2019 Alcohol intake: current Alcohol intake frequency: 3 or more drinks per day Alcohol type: beer Desire information about alcohol rehabilitation?: No Counseling given: Yes Household members: spouse Marital status: Vitals/I&O/Wt Last Vital Signs Temp 97.6 F 08/05/22 11:14 Pulse 101 H 08/05/22 11:14 Resp 19 H 08/05/22 11:14 BP 112/79 08/05/22 11:14 Pulse Ox 98 08/05/22 11:14 O2 Del Method 08/05/22 11:14 Weight last 48 hrs Weight 99.79 kg Physical Exam Narrative: Patient is awake and alert Nonfocal neuro exam Clinically looks dehydrated S1, S2 Hemodynamically stable No audible stridor or wheezing Currently satting well on room air Family at the bedside Skin wrinkling noted Dry skin Erythema of dorsum of foot noted no active signs of gout Abdomen soft EOMI, PERRLA Productive cough yellow sputum production Data : 08/05/22 11:15 08/05/22 11:15 A&P Assessment and plan (1) Abdominal pain: (2) Hyponatremia: (3) Hepatomegaly: (4) Diabetes mellitus type 2, diet-controlled: (5) Peripheral arterial disease: (6) Atrial fibrillation: (7) Anticoagulant long-term use: (8) CKD (chronic kidney disease): (9) Obesity: (10) Cardiomyopathy: (11) Dependence on continuous supplemental oxygen: Plan Chronic hyponatremia Fatigue and lethargy present Check alcohol level Uric acid General osmolarity Cortisol is normal Complaint looks dehydrated Endorsing vomiting and diarrhea He was also taken diuretics Check BNP Start gentle hydration goal sodium correction 6 mEq in 24 hours Check alcohol level Chest pain Patient is able to pinpoint area on right side, requested CTA chest, most likely this is hiatal hernia acid reflux pain troponins negative no pain on Left side Chronic hypoxia currently on 2 L No acute exacerbation A. 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
--- NOTE | 2022-08-05 13:14 | ECG_ITS ---
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 Measurements Intervals [place] Rate: 64 P: OR: QRS: -52 QRSD: 147 T: -4 QT: 483 QTc: 499 Interpretive Statements ATRIAL FIBRILLATION RIGHT BUNDLE BRANCH BLOCK [120+ ms QRS DURATION, UPRIGHT V1, 40+ ms S IN I/aVL/V4/V5/V6] LEFT ANTERIOR FASCICULAR BLOCK [QRS AXIS <= -45, QR IN I, RS IN II] INFERIOR MYOCARDIAL INFARCTION , PROBABLY OLD [40+ ms Q WAVE AND/OR ST/T ABNORMALITY IN II/aVF] Compared to ECG 08/05/2022 11:12:00 Myocardial infarct finding now present Electronically Signed On 08-05-2022 14:48:37 CDT by Davin Gonzalez M.D. [id number]
[2022-08-05 13:41] LABS: Troponin 5 2HR 19.66 ng/L (0-15)
[2022-08-05 13:42] LABS: Troponin 5 2HR Delta -1.34 ABS# (0-10)
[2022-08-05] MEDS: iohexol 350 mg/mL 100 mL Btl IV (14:01)
[2022-08-05 14:09] LABS: NT Pro B Type Natriuretic Pept 155 pg/mL (0-125); Thyroid Stimulating Hormone 2.16 uIU/mL (0.27-4.20)
[2022-08-05 14:10] LABS: Cortisol Random 22.85 ug/dL (2.47-19.5)
[2022-08-05 16:37] LABS: Estmated Average Glucose 88; Hemoglobin A1C 4.7 % (4.0-6.0)
[2022-08-05] MEDS: ipratropium-albuterol 3 mL Neb INHALATION (17:00)
[2022-08-05 17:01] LABS: Troponin 5 6HR 21.24 ng/L (0-15)
[2022-08-05 17:01] LABS: Glucose Point of Care 100 mg/dL (70-110)
[2022-08-05 17:02] LABS: Sodium 121 mmol/L (136-145)
[2022-08-05 17:05] LABS: Alcohol Level < 10 mg/dL (0-10); Troponin 5 6HR Delta 0.24 ng/L (0-12)
[2022-08-05] MEDS: sodium chloride 0.9% 1,000 ML 30 ML IV (17:08)
[2022-08-05] MEDS: tamsulosin 0.4 mg Capsule PO (17:10)
[2022-08-05] MEDS: warfarin 5 mg Tablet PO (17:11)
--- NOTE | 2022-08-05 17:14 | ECG_ITS ---
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 Measurements Intervals [place] Rate: 63 P: CO: QRS: -58 QRSD: 146 T: 6 QT: 471 QTc: 483 Interpretive Statements ATRIAL FIBRILLATION RIGHT BUNDLE BRANCH BLOCK [120+ ms QRS DURATION, UPRIGHT V1, 40+ ms S IN I/aVL/V4/V5/V6] LEFT ANTERIOR FASCICULAR BLOCK [QRS AXIS <= -45, QR IN I, RS IN II] Compared to ECG 08/05/2022 13:32:13 Myocardial infarct finding no longer present Electronically Signed On 08-05-2022 22:00:45 CDT by Davin Gonzalez M.D. [id number]
[2022-08-05 17:16] LABS: Vitamin B12 540 pg/mL (232-1245)
[2022-08-05 17:17] LABS: Uric Acid 7.6 mg/dL (3.4-7.0)
--- NOTE | 2022-08-05 19:14 | PC.NURSE ---
Bedside Report given to Zuleyma BACH at this time
[2022-08-05 20:24] LABS: Sodium 120 mmol/L (136-145)
[2022-08-05] MEDS: morphine IR 15 mg Tablet PO (20:28)
[2022-08-05 21:02] LABS: Glucose Point of Care 106 mg/dL (70-110)
[2022-08-05] MEDS: hyDRALAzine 50 mg Tablet 100 MG PO (22:22)
[2022-08-05] MEDS: pantoprazole DR 40 mg Tablet PO (22:23)
[2022-08-06] VITALS (7 sets, daily range): BP systolic 114–144; BP diastolic 69–91; PULSE 58–73; RESP 16–20; TEMP 36.4–36.7; O2SAT 95–99
[2022-08-06 05:14] LABS: Eosinophils % 0.6 %; Hematocrit 37.2 % (42.0-52.0); Hemoglobin 12.5 g/dL (11.7-16.6); Lymphocytes # 0.6 10^3/uL (0.8-4.8); Lymphocytes % 17.4 %; Mean Corpuscular HGB Conc 33.6 g/dL (30.0-36.0); Mean Corpuscular Hemoglobin 29.4 pg (28.0-34.0); Mean Corpuscular Volume 87.5 fl (80-94); Mean Platelet Volume 9.4 fL (7.4-10.4); Monocytes # 0.7 10^3/uL (0.2-0.9); Monocytes % 18.2 %; Neutrophils # 2.31 10^3/uL (1.8-7.7); Neutrophils % 63.5 %; Nucleated Red Blood Cells % 0 %; Platelet Count 155 10^3/cmm (130-400); Red Blood Count 4.25 10^6/uL (4.1-5.3); Red Cell Distribution Width 14.6 % (12.1-15.1); White Blood Count 3.6 10^3/uL (4.0-10.0)
[2022-08-06 05:35] LABS: Anion Gap 12.1 (5-19); Blood Urea Nitrogen 9 mg/dL (8-23); Calcium 8.1 mg/dL (8.5-10.5); Carbon Dioxide 33 mmol/L (22-29); Chloride 79 mmol/L (98-107); Glomerular Filtration Rate 134.8 mL/min (90-130); Glucose 89 mg/dL (65-115); Magnesium 1.2 mg/dL (1.7-2.3); Osmolality Calculated 250 mOsm/kg (285-295); Phosphorus 3.2 mg/dL (2.5-4.5); Potassium 3.1 mmol/L (3.5-5.1); Sodium 121 mmol/L (136-145)
[2022-08-06] MEDS: lisinopril 20 mg Tablet 40 MG PO (05:36)
[2022-08-06] MEDS: hyDRALAzine 50 mg Tablet 100 MG PO ×3 (05:36→21:14)
[2022-08-06] MEDS: aspirin 81 mg EC Tablet PO (05:37)
[2022-08-06 06:44] LABS: Glucose Point of Care 81 mg/dL (70-110)
[2022-08-06] MEDS: pantoprazole DR 40 mg Tablet PO ×2 (08:35→17:34)
[2022-08-06] MEDS: tamsulosin 0.4 mg Capsule PO ×2 (08:35→17:34)
[2022-08-06 11:13] LABS: Glucose Point of Care 100 mg/dL (70-110)
--- NOTE | 2022-08-06 11:27 | P.PN_ITS ---
Subjective Subjective: Patient wants to go home however agreed to stay when I told him his sodium was only 121 and I would like you to be around baseline of 126 Continue normal saline added salt tablets He is endorsing feeling slightly better Daughter updated Vitals/I&O/Wt Last Vital Signs Temp 97.6 F 08/06/22 07:00 Pulse 64 08/06/22 08:55 Resp 16 08/06/22 07:00 BP 133/78 08/06/22 07:00 Pulse Ox 95 08/06/22 08:55 O2 Del Method 08/06/22 08:55 O2 Flow Rate 2 08/06/22 08:55 08/05/22 08/06/22 08/06/22 22:59 06:59 14:59 Intake Total 480 / 1480 480 / 1960 250 / 250 Output Total 1500 / 1500 1800 / 3300 Balance -1020 / -20 -1320 / -1340 250 / 250 Weight last 48 hrs Weight 99.79 kg Physical Exam Narrative: S1, S2 variable Clinically looks euvolemic Abdomen soft Currently doing well on 2 L Pleasant and cooperative Sitting in bed watching television Pleasant during my evaluation Urinary Catheter Management: Alberst: Cath Placed During This Visit: yes Reason for Continuing Indwelling Catheter: Acute Urinary Retention or Obstruction Urinary Catheter Date of Insertion: 08/05/22 Urinary Catheter Time of Insertion: 13:57 Data : 08/06/22 04:45 08/06/22 04:45 A&P Assessment and plan (1) Hyponatremia: Plan Chronic hyponatremia This seems secondary to dehydration due to diarrhea and vomiting Continue normal saline Added salt tablets I will discharge him once his sodium is 126 Most likely he will be able to go home tomorrow Agreeable to stay 1 more day I encourage patient to call the nurse before he tries to get up and walk on his own Full code Continue Coumadin A. fib without RVR Hemodynamically stable Alcohol undetectable Full code Regular diet Attestations Medical Necessity Statement*: Likely discharge tomorrow Time Spent in Patient Care: 30 Coding Level of Care Code Acute Drupal Php Developer for Lettyg Fwd Diagnoses Hyponatremia E87.1
[2022-08-06 16:58] LABS: INR 1.39 (0.8-1.2)
[2022-08-06 16:59] LABS: Glucose Point of Care 87 mg/dL (70-110)
[2022-08-06] MEDS: warfarin 5 mg Tablet 7.5 MG PO (17:34)
[2022-08-06] MEDS: sodium chloride 1 gm Tablet PO (17:34)
[2022-08-06 20:40] LABS: Glucose Point of Care 75 mg/dL (70-110)
[2022-08-07] VITALS: BP 126/79; PULSE 81; RESP 16; TEMP 37.1; O2SAT 97
[2022-08-07] MEDS: sodium chloride 0.9% 1,000 ML 30 ML IV (03:22)
[2022-08-07 03:49] VITALS: BP 137/70; PULSE 77; RESP 16; TEMP 36.9; O2SAT 98
[2022-08-07 05:22] VITALS: BP 124/77
[2022-08-07] MEDS: aspirin 81 mg EC Tablet PO (05:24)
[2022-08-07] MEDS: hyDRALAzine 50 mg Tablet 100 MG PO (05:25)
[2022-08-07] MEDS: lisinopril 20 mg Tablet 40 MG PO (05:25)
[2022-08-07 05:42] LABS: Anion Gap 14.2 (5-19); Blood Urea Nitrogen 7 mg/dL (8-23); Calcium 7.8 mg/dL (8.5-10.5); Carbon Dioxide 30 mmol/L (22-29); Chloride 87 mmol/L (98-107); Glomerular Filtration Rate 166.4 mL/min (90-130); Glucose 80 mg/dL (65-115); Osmolality Calculated 263 mOsm/kg (285-295); Potassium 3.2 mmol/L (3.5-5.1); Sodium 128 mmol/L (136-145)
[2022-08-07 06:29] LABS: Glucose Point of Care 80 mg/dL (70-110)
[2022-08-07 07:27] VITALS: PULSE 80; RESP 16; O2SAT 94
--- NOTE | 2022-08-07 07:48 | P.DS_ITS ---
Discharge Providers Date of Admission: 08/05/22 14:37 Date of Discharge: August 07, 2022 Attending Provider at Admission: Mike Cortez MD Attending Provider at Discharge: Mike Cortez MD Primary Care Provider: CARMELA Bello Diagnoses at Discharge Discharge Diagnosis (1) Hyponatremia: Status: Acute Reason for Visit Reason for Visit: pain on left side Hospital Course Hospital Course 67-year-old male who has history of chronic hyponatremia baseline sodium ranges between 1 26-1 28 presented after experiencing diarrhea and vomiting, he kept taking his torsemide as well which made him very dehydrated he was given normal saline at 30 mill per hour it showed gradual improvement of sodium in next 24 hours -119to 122, salt tablets were added after 24 hours which improved with sodium of 228, patient wants to go home, I have asked him to hold his torsemide for 2 days, he was complaining of right-sided chest pain CTA chest did not show any pneumonia he does have hiatal hernia which most likely is the cause of his discomfort no signs of PE he remained stable at 2 L of oxygen which is his baseline requirement, gallbladder ultrasound unremarkable. Physical Exam Narrative: S1, S2 variable Clinically looks euvolemic Abdomen soft Currently doing well on 2 L Pleasant and cooperative Sitting in bed watching television Pleasant during my evaluation Urinary Catheter Management: Alberts: Cath Placed During This Visit: yes Reason for Continuing Indwelling Catheter: Acute Urinary Retention or Obstruction Urinary Catheter Date of Insertion: 08/05/22 Urinary Catheter Time of Insertion: 13:57 Discharge Data Studies Completed and Pending Completed Studies During Hospitalization Category Date Time Status CTA chest [CT angio chest PE protcl [id number]] Stat Cat Scan 08/05/22 12:54 Completed XR chest 1V portable [id number] Stat Exams 08/05/22 11:14 Completed US gall bladder [id number] Stat Ultrasound 08/05/22 11:13 Completed Pending at discharge Category Date Time Status CDIFF [Clostridioides Difficile PCR] Routine Lab 08/05/22 16:39 Uncollected Osmolality Serum Routine Lab 08/05/22 16:37 Received Osmolality Urine Routine Lab 08/05/22 12:25 Received Stool Culture, Bacterial [Enteric Bacterial Panel by Lab 08/05/22 16:39 Uncollected PCR] Routine stool Ova and Parasite [Enteric Parasite Panel by PCR] Lab 08/05/22 16:39 Uncollected Routine Radiology Impressions Gallbladder Ultrasound 08/05/22 11:13 IMPRESSION: 1. No cholelithiasis or bile duct dilatation. 2. Mild diffuse gallbladder wall thickening is similar to the prior study. May be related to hepatocellular disease. No evidence for acute cholecystitis. Chest X-Ray 08/05/22 11:14 IMPRESSION: No acute abnormality. Chest CTA 08/05/22 12:54 IMPRESSION: 1. No evidence of pulmonary embolus. 2. Moderate chronic emphysematous changes. No acute pulmonary infiltrates. No focal pneumonia or pleural fluid. 3. Cardiomegaly. 4. Small esophageal hiatal hernia. 5. No other acute findings. Laboratory Results WBC 3.6 10^3/uL (4.0-10.0) L 08/06/22 04:45 RBC 4.25 10^6/uL (4.1-5.3) 08/06/22 04:45 Hgb 12.5 g/dL (11.7-16.6) 08/06/22 04:45 Hct 37.2 % (42.0-52.0) L 08/06/22 04:45 MCV 87.5 fl (80-94) 08/06/22 04:45 MCH 29.4 pg (28.0-34.0) 08/06/22 04:45 MCHC 33.6 g/dL (30.0-36.0) 08/06/22 04:45 RDW 14.6 % (12.1-15.1) 08/06/22 04:45 Plt Count 155 10^3/cmm (130-400) 08/06/22 04:45 MPV 9.4 fL (7.4-10.4) 08/06/22 04:45 Neut % (Auto) 63.5 % 08/06/22 04:45 Lymph % (Auto) 17.4 % 08/06/22 04:45 [place] % (Auto) 18.2 % 08/06/22 04:45 Eos % (Auto) 0.6 % 08/06/22 04:45 Baso % (Auto) 0.0 % 08/06/22 04:45 Neut # (Auto) 2.31 10^3/uL (1.8-7.7) 08/06/22 04:45 Lymph # (Auto) 0.6 10^3/uL (0.8-4.8) L 08/06/22 04:45 [place] # (Auto) 0.7 10^3/uL (0.2-0.9) 08/06/22 04:45 Eos # (Auto) 0.0 10^3/uL (0.0-0.8) 08/06/22 04:45 Baso # (Auto) 0.0 10^3/uL (0.0-0.1) 08/06/22 04:45 Nucleated RBC % (auto) 0 % 08/06/22 04:45 Nucleated RBCs # 0.0 /100WBC 08/06/22 04:45 PT 17.40 SECONDS (12.1-14.9) H 08/06/22 16:39 INR 1.39 (0.8-1.2) H 08/06/22 16:39 APTT 37.0 SECONDS (23.9-36.7) H 08/05/22 11:15 D-Dimer Cancelled 08/05/22 11:15 Sodium 128 mmol/L (136-145) L 08/07/22 04:52 Potassium 3.2 mmol/L (3.5-5.1) L 08/07/22 04:52 Chloride 87 mmol/L (98-107) L 08/07/22 04:52 Carbon Dioxide 30 mmol/L (22-29) H 08/07/22 04:52 Anion Gap 14.2 (5-19) 08/07/22 04:52 BUN 7 mg/dL (8-23) L 08/07/22 04:52 Creatinine 0.5 mg/dL (0.7-1.2) L 08/07/22 04:52 GFR Calculation 166.4 mL/min (90-130) H 08/07/22 04:52 Glucose 80 mg/dL (65-115) 08/07/22 04:52 POC Glucose 80 mg/dL (70-110) 08/07/22 06:24 Estimat Average Glucose 88 08/05/22 11:15 Hemoglobin A1c 4.7 % (4.0-6.0) 08/05/22 11:15 Calculated Osmolality 263 mOsm/kg (285-295) L 08/07/22 04:52 Uric Acid 7.6 mg/dL (3.4-7.0) H 08/05/22 11:15 Calcium 7.8 mg/dL (8.5-10.5) L 08/07/22 04:52 Phosphorus 3.2 mg/dL (2.5-4.5) 08/06/22 04:45 Magnesium 1.2 mg/dL (1.7-2.3) L 08/06/22 04:45 Total Bilirubin 0.8 mg/dL (0.15-1.2) 08/05/22 11:15 AST 40 U/L (0-40) 08/05/22 11:15 ALT 24 U/L (0-41) 08/05/22 11:15 Alkaline Phosphatase 101 U/L (40-130) 08/05/22 11:15 Troponin T Baseline 21 ng/L (0-15) H 08/05/22 11:15 Troponin T 120 Minute 19.66 ng/L (0-15) H 08/05/22 13:14 Delta Troponin T -1.34 ABS# (0-10) L 08/05/22 13:14 Troponin T Hi Sens 6Hr 21.24 ng/L (0-15) H 08/05/22 16:37 Troponin T Hi Sens 6Hr Delta 0.24 ng/L (0-12) 08/05/22 16:37 NT-Pro-B Natriuret Pep 155 pg/mL (0-125) H 08/05/22 11:15 Total Protein 7.1 g/dL (6.6-8.7) 08/05/22 11:15 Albumin 3.5 g/dL (3.5-5.2) 08/05/22 11:15 Globulin 3.6 g/dL (1.3-4.6) 08/05/22 11:15 Lipase 28 U/L (13-60) 08/05/22 11:15 Vitamin B12 540 pg/mL (232-1245) 08/05/22 11:15 TSH 2.16 uIU/mL (0.27-4.20) 08/05/22 11:15 Random Cortisol 22.85 ug/dL (2.47-19.5) H 08/05/22 11:15 Urine Color Yellow (Yellow) 08/05/22 12:25 Urine Appearance Clear (CLEAR) 08/05/22 12:25 Urine pH 7 (5-7) 08/05/22 12:25 Ur Specific [place] 1.005 (1.005-1.030) 08/05/22 12:25 Urine Protein Neg (Negative) 08/05/22 12:25 Urine Glucose (UA) Norm (Normal) 08/05/22 12:25 Urine Ketones Negative (Negative) 08/05/22 12:25 Urine Blood Neg (Negative) 08/05/22 12:25 Urine Nitrate Negative (Negative) 08/05/22 12:25 Urine Bilirubin Neg (Negative) 08/05/22 12:25 Urine Urobilinogen Norm mg/dL (Negative) 08/05/22 12:25 Ur Leukocyte Esterase Negative (Negative) 08/05/22 12:25 Ethyl Alcohol < 10 mg/dL (0-10) 08/05/22 16:37 Vitals Last Vital Signs Temp 98.5 F 08/07/22 03:49 Pulse 80 08/07/22 07:27 Resp 16 08/07/22 07:27 BP 124/77 08/07/22 05:22 Pulse Ox 94 08/07/22 07:27 O2 Del Method 08/07/22 07:27 O2 Flow Rate 2 08/07/22 07:27 Discharge Plan Discharge Patient Disposition: Home Condition: Stable Prescriptions: Continued pantoprazole 40 mg tablet,delayed release (DR/EC) 40 mg PO BID PRN (Reason: Acid Reflux) albuterol sulfate 2.5 mg /3 mL (0.083 %) solution for nebulization 2.5 mg inhalation QID PRN (Reason: shortness of breath or wheezing) Qty: 180 1RF nitroglycerin [Nitrostat] 0.4 mg tablet, sublingual 0.4 mg SUBLINGUAL Q5M PRN (Reason: CHEST PAINS) Qty: 30 0RF Rx Instructions: do not exceed 3 doses per episode triamcinolone acetonide 0.1 % lotion See Rx Instructions .ROUTE .COMPLEX Qty: 60 0RF Dose Instruction: APPLY TO AFFECTED AREA TOPICALLY TWICE DAILY Rx Instructions: APPLY TO AFFECTED AREA TOPICALLY TWICE DAILY PRN warfarin 5 mg tablet See Rx Instructions .ROUTE .COMPLEX Qty: 108 0RF Dose Instruction: TAKE ONE TABLET BY MOUTH ON MONDAY, MONDAY AND MONDAY. TAKE ONE AND ONE- HALF TABLETS ON MONDAY, MONDAY, AND MONDAY Rx Instructions: TAKE ONE TABLET (5MG) BY MOUTH ON MONDAY, MONDAY AND MONDAY IN THE EVENING. TAKE ONE AND ONE-HALF (7.5MG) TABLETS ON MONDAY, MONDAY, AND MONDAY (DME) blood sugar diagnostic Strip MISCELLANEOUS latanoprost 0.005 % drops 1 drp ophthalmic (eye) QPM Adult Low Dose Aspirin 81 mg tablet,delayed release (DR/EC) 81 mg PO QAM tamsulosin 0.4 mg capsule 0.4 mg PO BID Taztia XT 120 mg capsule,extended release 24 hr 120 mg PO BEDTIME hydralazine 100 mg tablet 100 mg PO TID@,, metoprolol succinate 25 mg tablet extended release 24 hr 12.5 mg PO QAM lisinopril 40 mg tablet 40 mg PO QAM Spiriva with HandiHaler 18 mcg capsule, w/inhalation device 1 cap INHALATION DAILY PRN (Reason: unknown) Rx Instructions: puncture 1 cap using device; one dose = 2 inhalations Held torsemide 20 mg tablet 10 mg PO BID Hold Instructions: Resume on 08/09/22. Discharge Orders: Discharge Order (Routine); Ordered 08/07/22 Ordered By: Mike Cortez Referrals: Chantelle Vides FNP [Primary Care Provider] - (Please call Monday to schedule a follow up appointment.) Discharge Diet: Advance as tolerated Discharge Activity: Increase activity as tolerated Patient Instructions: Hyponatremia, Abdominal Pain (ED), Opioid Safety Discharge Attestations Time Spent in Discharge Care*: less than 30 min Quality Metrics Clinical Quality Measures [ No reported AMI, CVA or VTE this stay] Coding Level of Care Code Acute g DC note Diagnoses Hyponatremia E87.1
[2022-08-07] MEDS: tamsulosin 0.4 mg Capsule PO (08:09)
[2022-08-07] MEDS: pantoprazole DR 40 mg Tablet PO (08:10)
[2022-08-07] MEDS: sodium chloride 1 gm Tablet PO (08:10)
[2022-08-07] MEDS: zinc gluconate 50 mg Tablet PO (08:10)
[2022-08-07 08:16] VITALS: BP 125/79; PULSE 72; RESP 18; TEMP 36.6; O2SAT 94
--- NOTE | 2022-08-07 09:28 | PC.NURSE ---
Alberts catheter removed. Catheter tip intact.
--- NOTE | 2022-08-07 11:40 | PC.NURSE ---
Patient received discharge packet prior to leaving unit. Patient stated that spouse took belongings. Room inspected to ensure no belongings remained. IV was removed and catheter tip intact. Patient wheeled down to main entrance in wheelchair and left with spouse.
[2022-08-07 11:47] VITALS: BP 125/79; PULSE 72; RESP 18; TEMP 36.6; O2SAT 94
--- NOTE | 2022-08-07 11:51 | PC.NURSE ---
Patient A&O, VVS. Received discharge packet prior to leaving and all belongings sent home with spouse. Room cleared of all belongings. Alberts catheter and IV removed, catheter tip intact. Patient wheeled out in shirt, jeans, and shoes.
[2022-08-09 08:57] LABS: Osmolality Serum 249 mOsm/kg (278-305)
[2022-08-09 08:57] LABS: Osmolality Urine 162 mOsm/kg (50-1200)
== END 2022-08-07 11:53 | disposition home or self-care (01) | DRG 641 ==
LOC: ER 12:07 → MEDSURG 16:29
PROVIDERS: Admitting Provider Internal Medicine; Emergency Provider Emergency Medicine; PCP Nurse Practitioner Family; Visit Provider Internal Medicine
DX: E87.1 Hypo-osmolality and hyponatremia (principal); I13.0 Hypertensive heart and chronic kidney disease with heart failure and stage 1 through stage 4 chronic kidney disease, or unspecified chronic kidney disease; I50.22 Chronic systolic (congestive) heart failure; I42.9 Cardiomyopathy, unspecified; N18.9 Chronic kidney disease, unspecified; E11.22 Type 2 diabetes mellitus with diabetic chronic kidney disease; E11.51 Type 2 diabetes mellitus with diabetic peripheral angiopathy without gangrene; K21.9 Gastro-esophageal reflux disease without esophagitis; K44.9 Diaphragmatic hernia without obstruction or gangrene; F10.10 Alcohol abuse, uncomplicated; I48.91 Unspecified atrial fibrillation; N40.0 Benign prostatic hyperplasia without lower urinary tract symptoms; I25.10 Atherosclerotic heart disease of native coronary artery without angina pectoris; Z95.5 Presence of coronary angioplasty implant and graft; N41.1 Chronic prostatitis; Z99.81 Dependence on supplemental oxygen; E66.9 Obesity, unspecified; Z68.35 Body mass index [BMI] 35.0-35.9, adult; Z87.891 Personal history of nicotine dependence; Z79.82 Long term (current) use of aspirin; Z79.01 Long term (current) use of anticoagulants; Z79.51 Long term (current) use of inhaled steroids; E86.0 Dehydration
CPT/HCPCS: 36415; 36416; 51702; 71045; 71275; 76705; 80048; 80053; 80307; 81003; 82533; 82607; 82962; 83036; 83690; 83735; 83880; 83930; 83935; 84100; 84295; 84443; 84484; 84550; 85025; 85610; 85730; 93005; 94640; 96360; 99285; J7030; Q9967

== ENCOUNTER 2022-08-18 16:24 | Observation (INO) | payer MEDICARE, MEDICAID, SELFPAY ==
[2022-08-18] VITALS (11 sets, daily range): BP systolic 119–190; BP diastolic 72–96; PULSE 51–82; RESP 16–18; TEMP 36.4–36.6; O2SAT 97–100; BMI 35.5
--- NOTE | 2022-08-18 16:13 | XRR_ITS ---
PROCEDURE INFORMATION: Exam: XR Chest Exam date and time: 08/18/2022 4:22 PM Age: 67 years old Clinical indication: Pain; Angina pectoris; Additional info: Cp TECHNIQUE: Imaging protocol: Radiologic exam of the chest. Views: 1 view. COMPARISON: CR XR chest 1V portable [id number] 08/05/2022 12:31 PM FINDINGS: Lungs: Mild atelectasis in the left base. The lungs are otherwise clear. Portions of the lung apices are obscured by the neck and head. Pleural spaces: Unremarkable. No pleural effusion. No pneumothorax. Heart/Mediastinum: Cardiomegaly. Bones/joints: Unremarkable. XR/XR chest 1V portable [id number] IMPRESSION: No acute findings.
--- NOTE | 2022-08-18 16:35 | W.ED.GENADLT ---
HPI - General Adult General: Chief complaint: General Medical Stated complaint: chest pain /diabetitic Time Seen by Provider: 08/18/22 16:34 Source: patient Mode of arrival: ambulatory History of Present Illness: 67-year-old male who presents emergency room complaining of dizziness and weakness. He was working outside began to get progressively weaker and weaker he was replacing his steering well in a golf cart felt like he was nearly going to pass out. EMS was called. Initial blood glucose was 27 EMS gave D10 IV and is 132 on arrival here. Patient has been on metformin in the past. His recently was hospitalized usually manages medications for him. He thought he had a gout flareup and took some medicine that he thought was for gout. His daughters are at the bedside. I asked him if there is any glipizide prescriptions in the home they were pretty certain that there was. He denies taking any other medications and he is not on insulin. He had previously been on metformin but stopped. When the pharmacy techs went to verify his medications the pharmacies he previously had been using have not filled any medications in several months. Patient states immediately after receiving the IV glucose from EMS he was feeling much better he wants to go home now when I asked him about chest pain he said he had a little chest discomfort earlier but it is resolved now. He relates chest pain to the time when he was getting disoriented with a low blood sugar. Onset (ago): minute(s) Severity: mild Relieving factors: other (Glucose) Exacerbating factors: none Associated symptoms: Reports chest pain (Resolved after D10 infusion), confusion, malaise and nausea; Deny cough, diaphoresis, decreased appetite, dyspnea, fevers/chills, headache(s), rash, palpitations, seizures, short of breath, syncope, vomiting or weakness Review of Systems Const: Reports: malaise; Denies: fever(s), chills, fatigue or diaphoresis ENMT: Denies: throat pain, ear or mastoid pain, nasal discharge or nasal congestion Card: Reports: chest pain (Resolved after D10 infusion); Denies: palpitations, irregular heart rhythm, edema, swelling of feet/ankles or syncope Resp: Denies: dyspnea GI: Reports: nausea; Denies: abdominal pain or vomiting : Reports: urinary frequency; Denies: flank pain, difficulty urinating, dysuria or urinary urgency Musc: Reports: neck pain and back pain (Chronic) Skin/Breast: Denies: rash Neuro: Reports: confusion; Denies: headache(s) PFSH ED PFSH: Medical History Abdominal pain Alcohol abuse Anticoagulant long-term use Atrial fibrillation BPH (benign prostatic hyperplasia) BPH with obstruction/lower urinary tract symptoms CAD (coronary artery disease) Cardiomyopathy Carotid stenosis, bilateral Chronic prostatitis CKD (chronic kidney disease) COPD (chronic obstructive pulmonary disease) Dependence on continuous supplemental oxygen Diabetes Diabetes mellitus type 2, diet-controlled Diet-controlled type 2 diabetes mellitus Hepatomegaly HTN (hypertension) Hyponatremia Incomplete emptying of bladder Obesity Peripheral arterial disease Tobacco abuse Surgical History Hx of heart artery stent S/P carotid endarterectomy S/P hip replacement S/P PTCA (percutaneous transluminal coronary angioplasty) Family History Mother CAD (coronary artery disease) Diabetes Father , AGE 82 CAD (coronary artery disease) Hypertension Social History Smoking and tobacco status: current every day smoker Quit status (tobacco): has quit using tobacco Former quit date comment: NOV 2019 Alcohol intake: current Alcohol intake frequency: 3 or more drinks per day Alcohol type: beer Desire information about alcohol rehabilitation?: No Counseling given: Yes Household members: spouse Marital status: Current occupation: disabled Physical Exam Const: GENERAL APPEARANCE: cooperative and comfortable ORIENTATION/CONSCIOUSNESS: Yes awake, Yes oriented to person, Yes oriented to place and Yes oriented to time HENMT: COMMON NORMALS: normocephalic, atraumatic and hearing grossly normal bilaterally HEAD & SCALP: normocephalic and atraumatic Resp: COMMON NORMALS: normal respiratory effort, No retractions, No use of accessory muscles and clear to auscultation bilaterally AUSCULTATION: clear to auscultation bilaterally Cardio: COMMON NORMALS: regular rate, regular rhythm and No murmurs present (Cardio) RATE: regular rate RHYTHM: regular rhythm GI: COMMON NORMALS: Soft to palpation and No hepatosplenomegaly present AUSCULTATION: Yes normoactive bowel sounds PALPATION: Yes Soft to palpation, No Tenderness to palpation present (GI), No Guarding due to palpation present (GI) and Yes No hepatosplenomegaly present Extremity: COMMON NORMALS: normal to inspection, capillary refill normal, no clubbing, cyanosis or edema, no calf tenderness and no pedal edema Neuro: SENSORIUM/ORIENTATION: Yes oriented to person, Yes oriented to place and Yes oriented to time Skin: COMMON NORMALS: no rashes or lesions noted GENERAL SKIN EXAM: no rashes or lesions noted Course Vital Signs: Vital signs: Vital Signs Temperature 97.8 F 08/19/22 14:55 Pulse Rate 53 L 08/19/22 14:55 Respiratory Rate 16 08/19/22 14:55 Blood Pressure 158/89 08/19/22 14:55 Pulse Oximetry 98 08/19/22 14:55 Oxygen Delivery Me thod 08/19/22 11:53 Oxygen Flow Rate 0.5 08/19/22 08:56 MDM - General Adult Medical Decision Making Admitted for hypoglycemia which is persistent after suspected glipizide intake. He also needs some rehydration. Believe you will need help with his medications in the future as is recently been hospitalized and he has been managing his own medications which she believes is what caused the problem today. Medical Records I reviewed the patient's medical records. Lab Data I reviewed the patient's lab results. : 08/19/22 04:00 08/19/22 04:00 Radiology Impressions Chest X-Ray 08/18/22 16:13 IMPRESSION: No acute findings. Laboratory Results WBC 12.2 10^3/uL (4.0-10.0) H 08/18/22 16: RBC 4.41 10^6/uL (4.1-5.3) 08/18/22 16: Hgb 12.9 g/dL (11.7-16.6) 08/18/22 16: Hct 38.4 % (42.0-52.0) L 08/18/22 16: MCV 87.1 fl (80-94) 08/18/22 16: MCH 29.3 pg (28.0-34.0) 08/18/22 16: MCHC 33.6 g/dL (30.0-36.0) 08/18/22 16:21 RDW 14.3 % (12.1-15.1) 08/18/22 16:21 Plt Count 254 10^3/cmm (130-400) 08/18/22 16:21 MPV 9.3 fL (7.4-10.4) 08/18/22 16:21 Neut % (Auto) 87.8 % 08/18/22 16:21 Lymph % (Auto) 3.3 % 08/18/22 16:21 [place] % (Auto) 8.1 % 08/18/22 16:21 Eos % (Auto) 0.0 % 08/18/22 16:21 Baso % (Auto) 0.1 % 08/18/22 16:21 Neut # (Auto) 10.69 10^3/uL (1.8-7.7) H 08/18/22 16:21 Lymph # (Auto) 0.4 10^3/uL (0.8-4.8) L 08/18/22 16:21 [place] # (Auto) 1.0 10^3/uL (0.2-0.9) H 08/18/22 16:21 Eos # (Auto) 0.0 10^3/uL (0.0-0.8) 08/18/22 16:21 Baso # (Auto) 0.0 10^3/uL (0.0-0.1) 08/18/22 16:21 Nucleated RBC % (auto) 0 % 08/18/22 16:21 Nucleated RBCs # 0.0 /100WBC 08/18/22 16:21 Sodium 123 mmol/L (136-145) L 08/18/22 16:21 Potassium 3.0 mmol/L (3.5-5.1) L 08/18/22 16:21 Chloride 77 mmol/L (98-107) L 08/18/22 16:21 Carbon Dioxide 32 mmol/L (22-29) H 08/18/22 16:21 Anion Gap 17.0 (5-19) 08/18/22 16:21 BUN 12 mg/dL (8-23) 08/18/22 16:21 Creatinine 0.7 mg/dL (0.7-1.2) 08/18/22 16:21 GFR Calculation 112.8 mL/min (90-130) 08/18/22 16:21 Glucose 47 mg/dL (65-115) L 08/18/22 16:21 POC Glucose 93 mg/dL (70-110) 08/18/22 19:19 Estimat Average Glucose 94 08/18/22 16:21 Hemoglobin A1c 4.9 % (4.0-6.0) 08/18/22 16:21 Calculated Osmolality 253 mOsm/kg (285-295) L 08/18/22 16:21 Lactic Acid 1.2 mmol/L (0.5-2.2) 08/18/22 19:44 Calcium 7.9 mg/dL (8.5-10.5) L 08/18/22 16:21 Total Bilirubin 0.5 mg/dL (0.15-1.2) 08/18/22 16:21 AST 27 U/L (0-40) 08/18/22 16:21 ALT 18 U/L (0-41) 08/18/22 16:21 Alkaline Phosphatase 100 U/L (40-130) 08/18/22 16:21 Troponin T Baseline 21 ng/L (0-15) H 08/18/22 16:21 Troponin T 120 Minute 19.14 ng/L (0-15) H 08/18/22 18:37 Delta Troponin T -1.86 ABS# (0-10) L 08/18/22 18:37 NT-Pro-B Natriuret Pep 975 pg/mL (0-125) H 08/18/22 18:37 Total Protein 7.6 g/dL (6.6-8.7) 08/18/22 16:21 Albumin 3.8 g/dL (3.5-5.2) 08/18/22 16:21 Globulin 3.8 g/dL (1.3-4.6) 08/18/22 16:21 Triglycerides 55 mg/dL (0-150) 08/18/22 18:37 Cholesterol 222 mg/dL (0-200) H 08/18/22 18:37 LDL Cholesterol, Calc 113 mg/dL (50-129) 08/18/22 18:37 HDL Cholesterol 98 mg/dL (60-100) 08/18/22 18:37 LDL/HDL Ratio 1.15 RATIO (0.00-3.22) 08/18/22 18:37 Cholesterol/HDL Ratio 2.27 mg/dL (1.0-5.00) 08/18/22 18:37 Lipase 48 U/L (13-60) 08/18/22 16:21 Procalcitonin 0.04 ng/mL (0-0.5) 08/18/22 18:37 TSH 1.74 uIU/mL (0.27-4.20) 08/18/22 18:37 Urine Color Yellow (Yellow) 08/18/22 17:35 Urine Appearance Clear (CLEAR) 08/18/22 17:35 Urine pH 7 (5-7) 08/18/22 17:35 Ur Specific [place] 1.015 (1.005-1.030) 08/18/22 17:35 Urine Protein 1+ (Negative) H 08/18/22 17:35 Urine Glucose (UA) Norm (Normal) 08/18/22 17:35 Urine Ketones 1+ (Negative) H 08/18/22 17:35 Urine Blood Neg (Negative) 08/18/22 17:35 Urine Nitrate Negative (Negative) 08/18/22 17:35 Urine Bilirubin Neg (Negative) 08/18/22 17:35 Urine Urobilinogen Norm mg/dL (Negative) 08/18/22 17:35 Ur Leukocyte Esterase Negative (Negative) 08/18/22 17:35 Urine RBC None /hpf (0-2) 08/18/22 17:35 Urine WBC None /hpf (0-5) 08/18/22 17:35 Ur Squamous Epith Cells 0-4 /hpf (0-5) H 08/18/22 17:35 Amorphous Sediment Not Reportable 08/18/22 17:35 Urine Bacteria None /hpf (NONE) 08/18/22 17:35 Discharge Plan Discharge Patient Disposition: Admitted As Inpatient Admit Provider: Josh Wei Clinical Impression: Adverse effect of glipizide, Alcoholic fatty liver, Hyponatremia, Hypertension, Hypoglycemia, Chronic alcohol abuse Condition: Stable Discharge Diet: Cardiac Discharge Activity: Resume usual activity Coding Level of Care Code ED Gastroenterology Professor for Chg Fwd Exam Detailed
--- NOTE | 2022-08-18 16:36 | ECG_ITS ---
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 Measurements Intervals [place] Rate: 69 P: NM: QRS: -9 QRSD: 151 T: -5 QT: 498 QTc: 536 Interpretive Statements ATRIAL FIBRILLATION WITH ABERRANT CONDUCTION OR VENTRICULAR PREMATURE COMPLEXES RIGHT BUNDLE BRANCH BLOCK [120+ ms QRS DURATION, UPRIGHT V1, 40+ ms S IN I/aVL/V4/V5/V6] Compared to ECG 08/05/2022 16:52:56 Ventricular premature complex(es) now present Aberrant conduction of supraventricular beat(s) now present Left anterior fascicular block no longer present Electronically Signed On 08-18-2022 17:29:07 CDT by Davin Gonzalez M.D. [id number]
[2022-08-18 16:45] LABS: Basophils % 0.1 %; Hematocrit 38.4 % (42.0-52.0); Hemoglobin 12.9 g/dL (11.7-16.6); Lymphocytes # 0.4 10^3/uL (0.8-4.8); Lymphocytes % 3.3 %; Mean Corpuscular HGB Conc 33.6 g/dL (30.0-36.0); Mean Corpuscular Hemoglobin 29.3 pg (28.0-34.0); Mean Corpuscular Volume 87.1 fl (80-94); Mean Platelet Volume 9.3 fL (7.4-10.4); Monocytes % 8.1 %; Neutrophils # 10.69 10^3/uL (1.8-7.7); Neutrophils % 87.8 %; Nucleated Red Blood Cells % 0 %; Platelet Count 254 10^3/cmm (130-400); Red Blood Count 4.41 10^6/uL (4.1-5.3); Red Cell Distribution Width 14.3 % (12.1-15.1); White Blood Count 12.2 10^3/uL (4.0-10.0)
[2022-08-18 17:09] LABS: Troponin(5th) Baseline 21 ng/L (0-15)
[2022-08-18 17:19] LABS: Alanine Aminotransferase 18 U/L (0-41); Albumin Level 3.8 g/dL (3.5-5.2); Alkaline Phosphatase 100 U/L (40-130); Aspartate Amino Transferase 27 U/L (0-40); Blood Urea Nitrogen 12 mg/dL (8-23); Calcium 7.9 mg/dL (8.5-10.5); Carbon Dioxide 32 mmol/L (22-29); Chloride 77 mmol/L (98-107); Globulin 3.8 g/dL (1.3-4.6); Glomerular Filtration Rate 112.8 mL/min (90-130); Glucose 47 mg/dL (65-115); Lipase 48 U/L (13-60); NT Pro B Type Natriuretic Pept 844 pg/mL (0-125); Osmolality Calculated 253 mOsm/kg (285-295); Sodium 123 mmol/L (136-145); Total Bilirubin 0.5 mg/dL (0.15-1.2); Total Protein 7.6 g/dL (6.6-8.7)
[2022-08-18 17:59] LABS: Glucose Point of Care 63 mg/dL (70-110)
--- NOTE | 2022-08-18 18:22 | P.HP_ITS ---
Providers/Chief Complaint Primary Care Provider: CARMELA Bello Chief Complaint: chest pain /diabetitic History of Present Illness Alberto Trujillo Jr is a 67 year old male with a past medical history of chronic hyponatremia, secondary to beers [place], alcoholism, hypertension, hyperlipidemia, atrial fibrillation on Coumadin, see chart, GERD, last A1c 4.7, who presents [facility] due to accidental overdose on glipizide. Patient tells me that he has been living at home by himself, his currently is hospitalized for COVID-19, he refused to be tested for COVID-19, but does report a lack of taste, no shortness of breath, no fevers. He has been having a lot of joint pains, and has been complaining of gouty leg pain, so he thought he had gout so he took up what he thought was allopurinol but he took glipizide. This was roughly at 6-8 yesterday, then about 2 PM today he started to become lightheaded dizzy and diaphoretic, ambulance was called out to his home, his blood sugars were in the 20s, improved with IV fluids. Here in the blood sugar were in the 40s, improved with glucose tablets. She has become very agitated in the emergency room, he does not want to be admitted, he wants to go home, he is worried about his AC unit, however his is admitted in the hospital is known to take care of him. His daughters at bedside implore him to stay to the hospital after much disagreement, family agreed to spend 1 night in the hospital to monitor for hypoglycemia and dehydration. Review of Systems Const: Denies: fever(s) Card: Denies: chest pain GI: Denies: abdominal pain Medications/Allergies Home Medications Medication Instructions Recorded Confirmed Last Taken Type albuterol sulfate 2.5 mg/3 mL 2.5 mg (3 mL) inhalation QID PRN 09/29/20 08/18/22 03/05/21 06:00 Rx (0.083 %) solution for nebulization shortness of breath or wheezing #180 mL nitroglycerin 0.4 mg sublingual 0.4 mg sublingual Q5M PRN CHEST 10/28/21 08/18/22 Unknown Rx tablet (Nitrostat) PAINS #30 tabs blood sugar diagnostic 12/10/21 08/18/22 Unknown History triamcinolone acetonide 0.1 % See Rx Instructions .Route 02/28/22 08/18/22 Unknown Rx lotion .COMPLEX #60 mL warfarin 5 mg tablet See Rx Instructions .Route 07/29/22 08/18/22 08/18/22 Rx .COMPLEX #108 tabs aspirin 81 mg tablet,delayed 81 mg PO QAM 08/05/22 08/18/22 08/18/22 History release (Adult Low Dose Aspirin) diltiazem HCl 120 mg capsule,24 120 mg PO BEDTIME 08/05/22 08/18/22 08/17/22 History hr,extended release (Taztia XT) hydralazine 100 mg tablet 100 mg PO TID@,,08/05/22 08/18/22 08/18/22 History latanoprost 0.005 % eye drops 1 drp ophthalmic (eye) QPM 08/05/22 08/18/22 08/18/22 History lisinopril 40 mg tablet 40 mg PO QAM 08/05/22 08/18/22 08/18/22 History metoprolol succinate 25 mg 12.5 mg PO QAM 08/05/22 08/18/22 08/18/22 History tablet,extended release 24 hr tamsulosin 0.4 mg capsule 0.4 mg PO BID 08/05/22 08/18/22 08/18/22 History tiotropium bromide 18 mcg capsule 1 cap inhalation DAILY PRN unknown 08/05/22 08/18/22 Unknown History with inhalation device (Spiriva with HandiHaler) torsemide 10 mg tablet 10 mg PO BID #180 tabs 08/12/22 08/18/22 08/18/22 Rx pantoprazole 40 mg tablet,delayed 40 mg PO BID 08/18/22 08/18/22 08/18/22 History release Allergies Allergy/AdvReac Type Severity Reaction Status Date / Time adhesive Allergy ALGY-Rash Verified 08/18/22 17:10 Dwufdbc-EDG-PnB Reductase Allergy unknown Verified 08/18/22 17:10 Inhibitor [Xzbwlbc-Gfv-Lls Reductase Inhibitor] PFSH Acute PFSH: Medical History Abdominal pain Alcohol abuse Anticoagulant long-term use Atrial fibrillation BPH (benign prostatic hyperplasia) BPH with obstruction/lower urinary tract symptoms CAD (coronary artery disease) Cardiomyopathy Carotid stenosis, bilateral Chronic prostatitis CKD (chronic kidney disease) COPD (chronic obstructive pulmonary disease) Dependence on continuous supplemental oxygen Diabetes Diabetes mellitus type 2, diet-controlled Diet-controlled type 2 diabetes mellitus Hepatomegaly HTN (hypertension) Hyponatremia Incomplete emptying of bladder Obesity Peripheral arterial disease Tobacco abuse Surgical History Hx of heart artery stent S/P carotid endarterectomy S/P hip replacement S/P PTCA (percutaneous transluminal coronary angioplasty) Family History Mother CAD (coronary artery disease) Diabetes Father , AGE 82 CAD (coronary artery disease) Hypertension Social History Smoking and tobacco status: current every day smoker Quit status (tobacco): has quit using tobacco Former quit date comment: NOV 2019 Alcohol intake: current Alcohol intake frequency: 3 or more drinks per day Alcohol type: beer Desire information about alcohol rehabilitation?: No Counseling given: Yes Household members: spouse Marital status: Vitals/I&O/Wt Last Vital Signs Temp 97.8 F 08/18/22 16:28 Pulse 82 08/18/22 18:18 Resp 17 08/18/22 16:58 BP 119/72 08/18/22 18:18 Pulse Ox 100 08/18/22 18:18 O2 Del Method 08/18/22 18:18 Weight last 48 hrs Weight 99.79 kg Physical Exam Const: COMMON NORMALS: no acute distress and patient oriented x3 HENMT: COMMON NORMALS: normocephalic HEAD & SCALP: normocephalic Eye: COMMON NORMALS: Equal, round and reactive pupils present and EOMs intact bilaterally Neck/C-Spine: COMMON NORMALS: no JVD Resp: COMMON NORMALS: normal respiratory effort, No retractions, No use of accessory muscles and clear to auscultation bilaterally AUSCULTATION: clear to auscultation bilaterally Cardio: COMMON NORMALS: no JVD, regular rate, regular rhythm, S1 normal heart sound present and S2 normal heart sound present RATE: regular rate RHYTHM: regular rhythm HEART SOUNDS: S1 normal heart sound present and S2 normal heart sound present GI: COMMON NORMALS: Normal to inspection, nondistended, normoactive bowel sounds present and Soft to palpation PALPATION: Yes Soft to palpation Extremity: COMMON NORMALS: capillary refill normal, no clubbing, cyanosis or edema, no calf tenderness and no pedal edema Neuro: COMMON NORMALS: patient oriented x3 Psych: COMMON NORMALS: mental status grossly normal Data : 08/18/22 16:21 08/18/22 16:21 A&P Assessment and plan (1) Adverse effect of glipizide: (2) Hypoglycemia: (3) Chronic hyponatremia: (4) CAD (coronary artery disease): Qualifiers: Coronary Disease-Associated Artery/Lesion type: [place] artery [place] vs. transplanted heart: [place] heart Associated angina: with unspecified form of angina Qualified Code(s): I25.119 - Atherosclerotic heart disease of [place] coronary artery with unspecified angina pectoris (5) Diabetes: Qualifiers: Diabetes mellitus type: type 2 Diabetes mellitus residential insulin use: without residential use Diabetes mellitus complication status: without c omplication Qualified Code(s): E11.9 - Type 2 diabetes mellitus without co mplications (6) HTN (hypertension): Qualifiers: Hypertension type: primary hypertension Qualified Code(s): I10 - Essential (primary) hypertension (7) Alcohol abuse: (8) COPD (chronic obstructive pulmonary disease): (9) Carotid stenosis, bilateral: Plan Glipizide toxicity, hypoglycemia -Currently blood sugars improved, in the 60s, alert oriented x3 -Continue D5 normal saline at 100 cc an hour monitor blood sugars hourly -Hypoglycemia protocol -Currently there is no need for octreotide but if his blood sugars drop further can consider octreotide -Does have type 2 diabetes mellitus last A1c's have been 4.7 -Full code, Lovenox for DVT prophylaxis Acute on chronic hyponatremia, likely beers [place] with a combination of Lasix therapy -Reports alcoholism -Neurochecks, seizure precautions, monitor serum sodium Anemia replace A. fib with RVR, continue metoprolol, warfarin, diltiazem CAD Attestations Medical Necessity Statement*: Patient requires position, outpatient observation, for glipizide toxicity, hypoglycemia Coding Level of Care Code Acute General Utility Maintenance Repairer for Chg Fwd Diagnoses Adverse effect of glipizide T38.3X5A Hypoglycemia E16.2 Chronic hyponatremia E87.1 CAD (coronary artery disease) I25.119 Coronary Disease-Associated Artery/Lesion type: [place] artery [place] vs. transplanted heart: [place] heart Associated angina: with unspecified form of angina Diabetes E11.9 Diabetes mellitus type: type 2 Diabetes mellitus residential insulin use: without residential use Diabetes mellitus complication status: without complication HTN (hypertension) I10 Hypertension type: primary hypertension Alcohol abuse F10.10 COPD (chronic obstructive pulmonary disease) J44.9 Carotid stenosis, bilateral I65.23
[2022-08-18 18:36] LABS: Add Urine Microscopic? YES; Bilirubin Urine Neg (Negative); Blood Urine Neg (Negative); Glucose Urine UA Norm (Normal); Ketones Urine 1+ (Negative); Leukocyte Esterase Urine Negative (Negative); Nitrate Urine Negative (Negative); Protein Urine 1+ (Negative); Specific Gravity, Urine 1.015 (1.005-1.030); Squamous Epithelial Cell Urine 0-4 /hpf (0-5); Urine Appearance Clear (CLEAR); Urine Color Yellow (Yellow); Urobilinogen Urine Norm (Negative); pH Urine 7 (5-7)
[2022-08-18 18:37] LABS: Add Urine Culture? No
[2022-08-18] MEDS: potassium chloride ER 20 mEq Tablet 40 MEQ PO (18:37)
[2022-08-18] MEDS: enoxaparin 40 mg/0.4 mL Syringe SUBCUT (18:40)
[2022-08-18] MEDS: dextrose 5%-sod chloride 0.9% 1,000 ML 75 ML IV (18:44)
[2022-08-18] MEDS: octreotide 100 mcg/mL SDV 50 MCG IVP (19:12)
[2022-08-18 19:23] LABS: Glucose Point of Care 93 mg/dL (70-110)
[2022-08-18 19:24] LABS: Troponin 5 2HR 19.14 ng/L (0-15)
[2022-08-18 19:31] LABS: Chol HDL Ratio 2.27 mg/dL (1.0-5.00); Cholesterol 222 mg/dL (0-200); HDL Cholesterol 98 mg/dL (60-100); LDL Cholesterol Calculated 113 mg/dL (50-129); LDL HDL Ratio 1.15 RATIO (0.00-3.22); NT Pro B Type Natriuretic Pept 975 pg/mL (0-125); Procalcitonin 0.04 ng/mL (0-0.5); Thyroid Stimulating Hormone 1.74 uIU/mL (0.27-4.20); Triglycerides 55 mg/dL (0-150)
[2022-08-18 19:35] LABS: Troponin 5 2HR Delta -1.86 ABS# (0-10)
[2022-08-18 20:09] LABS: Lactic Sepsis W/Reflex 1.2 mmol/L (0.5-2.2)
[2022-08-18 20:56] LABS: Estmated Average Glucose 94; Hemoglobin A1C 4.9 % (4.0-6.0)
[2022-08-18 21:42] LABS: Glucose Point of Care 97 mg/dL (70-110)
[2022-08-18] MEDS: dilTIAZem ER (24HR) 120 mg Capsule PO (22:19)
[2022-08-18 22:38] LABS: Troponin 5 6HR 23.74 ng/L (0-15)
[2022-08-18 22:40] LABS: Troponin 5 6HR Delta 2.74 ng/L (0-12)
--- NOTE | 2022-08-18 22:46 | ECG_ITS ---
[facility] Test Date: 2022-08-18 Pat Name: Alberto Trujillo Department: Room: 254 Gender: Male Pairer Substandard: : 1955 Requested By: Giuliano Tafoya Order Number: [id number] Tho MD: Toby Murcia M.D. Measurements Intervals [place] Rate: 52 P: HI: QRS: 97 QRSD: 141 T: -47 QT: 496 QTc: 465 Interpretive Statements Atrial fibrillation with slow ventricular response rate and frequent PVCs RIGHT BUNDLE BRANCH BLOCK [120+ ms QRS DURATION, UPRIGHT V1, 40+ ms S IN I/aVL/V4/V5/V6] Nonspecific T wave changes CRITICAL TEST RESULT Compared to ECG 08/18/2022 17:19:45 T-wave abnormality now present Possible ischemia now present Atrial fibrillation no longer present Ventricular premature complex(es) no longer present Aberrant conduction of supraventricular beat(s) no longer present Electronically Signed On 08-19-2022 16:53:10 CDT by Toby Murcia M.D. [id number]
[2022-08-19] VITALS: BP 136/86; PULSE 52; RESP 17; TEMP 36.6; O2SAT 98
[2022-08-19 03:23] LABS: Glucose Point of Care 148 mg/dL (70-110)
[2022-08-19 03:24] LABS: Glucose Point of Care 168 mg/dL (70-110)
[2022-08-19 04:00] VITALS: BP 160/84; PULSE 84; RESP 20; TEMP 36.5; O2SAT 90
[2022-08-19 04:59] LABS: Basophils % 0.4 %; Eosinophils # 0.1 10^3/uL (0.0-0.8); Eosinophils % 1.3 %; Hematocrit 33.2 % (42.0-52.0); Hemoglobin 11.1 g/dL (11.7-16.6); Lymphocytes # 0.5 10^3/uL (0.8-4.8); Lymphocytes % 9.5 %; Mean Corpuscular HGB Conc 33.4 g/dL (30.0-36.0); Mean Corpuscular Hemoglobin 29.3 pg (28.0-34.0); Mean Corpuscular Volume 87.6 fl (80-94); Monocytes # 1.1 10^3/uL (0.2-0.9); Monocytes % 19.5 %; Neutrophils # 3.79 10^3/uL (1.8-7.7); Neutrophils % 68.8 %; Nucleated Red Blood Cells % 0 %; Platelet Count 220 10^3/cmm (130-400); Red Blood Count 3.79 10^6/uL (4.1-5.3); Red Cell Distribution Width 14.3 % (12.1-15.1); White Blood Count 5.5 10^3/uL (4.0-10.0)
[2022-08-19 05:36] LABS: Alanine Aminotransferase 15 U/L (0-41); Albumin Level 3.2 g/dL (3.5-5.2); Alkaline Phosphatase 85 U/L (40-130); Anion Gap 15.3 (5-19); Aspartate Amino Transferase 24 U/L (0-40); Blood Urea Nitrogen 13 mg/dL (8-23); Calcium 7.5 mg/dL (8.5-10.5); Carbon Dioxide 31 mmol/L (22-29); Chloride 85 mmol/L (98-107); Globulin 3.1 g/dL (1.3-4.6); Glomerular Filtration Rate 96.7 mL/min (90-130); Glucose 156 mg/dL (65-115); Osmolality Calculated 269 mOsm/kg (285-295); Phosphorus 2.8 mg/dL (2.5-4.5); Potassium 3.3 mmol/L (3.5-5.1); Sodium 128 mmol/L (136-145); Total Bilirubin 0.6 mg/dL (0.15-1.2); Total Protein 6.3 g/dL (6.6-8.7)
[2022-08-19] MEDS: aspirin 81 mg EC Tablet PO (05:57)
[2022-08-19] MEDS: metoprolol succinate ER (24 HR) 25 mg Tablet 12.5 MG PO (05:58)
[2022-08-19 06:04] LABS: Glucose Point of Care 150 mg/dL (70-110)
[2022-08-19 06:07] LABS: Magnesium 0.9 mg/dL (1.7-2.3)
[2022-08-19] MEDS: magnesium sulfate premix 2 GM/50 ML PIGGYBACK IV ×2 (06:27→09:54)
[2022-08-19 08:00] VITALS: BP 139/76; PULSE 96; RESP 15; TEMP 36.7; O2SAT 100
[2022-08-19 08:56] VITALS: PULSE 78; O2SAT 96
[2022-08-19] MEDS: tamsulosin 0.4 mg Capsule PO (09:55)
[2022-08-19] MEDS: potassium chloride ER 20 mEq Tablet PO (09:55)
[2022-08-19] MEDS: pantoprazole DR 40 mg Tablet PO (09:55)
[2022-08-19] MEDS: dextrose 5%-sod chloride 0.9% 1,000 ML 75 ML IV (09:55)
--- NOTE | 2022-08-19 10:10 | PC.CHAP ---
Pastoral Care Encounter/Spiritual Assessment Type of Contact [] Declined usability specialist visit [] Patient/Family/Request visit [] Outpatient visit [] Follow-up visit [] Physician referral [] Code/Alert [x] Routine visit [] Staff referral [] Actively dying [] Patient sleeping [] Family support [] [] Out of room [] Palliative care [] [] Receiving care in room [] Pre-surgical visit [] Trauma [] Long length of stay [] ICU visit [] Other: Relational/Emotional Strength [] Patient feels connected with others/family/visitors/staff [] Distress [] Loneliness/isolation [] Abandonment Spirituality of Patient [] Person of Kelsi [] Attends Yarsanism of their Kelsi [] Believes in Prayer [] Reads Bible or Confucianist materials [] There are Spiritual issues to be addressed Processing Tech Interventions [x] Prayer [] Active listening [] Non-anxious presence [] Spiritual/emotional support [] Crisis/trauma care [] Spiritual counseling [] Bereavement support [] Provided bereavement packet [] Provided Bible/devotional materials [] Provided toy/stuffed animal, coloring book to patient or family member [] Provided Communion [] Anointing/[place] [] Salvation [] Completed spiritual assessment [] Other: Impact on Illness or Injury [] Angry [] Fearful [] Anxious [] Often cries [] Exhaustion [] Unable to work [] Unable to attend amish [] Unable to walk/stand [] Unable to read [] Unable to drive [] Unable to eat/drink [] Unable to sleep [] Unable to be with family [] Patient intubated [] Other: Summary Time spent with patient posted
[2022-08-19 10:18] LABS: Glucose Point of Care 138 mg/dL (70-110)
[2022-08-19 11:04] LABS: Glucose Point of Care 116 mg/dL (70-110)
--- NOTE | 2022-08-19 11:34 | PM.DCS ---
Discharge Providers Date of Admission: 08/18/22 20:47 Date of Discharge: August 19, 2022 Attending Provider at Admission: Josh Wei MD Attending Provider at Discharge: Josh Wei MD Primary Care Provider: CARMELA Bello Diagnoses at Discharge Discharge Diagnosis (1) Adverse effect of glipizide: Status: Acute (2) Hypoglycemia: Status: Acute (3) Chronic hyponatremia: Status: Acute (4) CAD (coronary artery disease): Status: Acute Qualifiers: Coronary Disease-Associated Artery/Lesion type: [place] artery [place] vs. transplanted heart: qu[place] heart Associated angina: with unspecified form of angina Qualified Code(s): I25.119 - Atherosclerotic heart disease of [place] coronary artery with unspecified angina pectoris (5) Diabetes: Status: Acute Qualifiers: Diabetes mellitus type: type 2 Diabetes mellitus residential insulin use: without residential use Diabetes mellitus complication status: without complication Qualified Code(s): E11.9 - Type 2 diabetes mellitus without complications (6) HTN (hypertension): Status: Acute Qualifiers: Hypertension type: primary hypertension Qualified Code(s): I10 - Essential (primary) hypertension (7) Alcohol abuse: Status: Acute (8) COPD (chronic obstructive pulmonary disease): Status: Acute (9) Carotid stenosis, bilateral: Status: Acute Reason for Visit Reason for Visit: chest pain /diabetitic Hospital Course Hospital Course Alberto Trujillo Jr is a 67 year old male with a past medical history of chronic hyponatremia, secondary to beers [place], alcoholism, hypertension, hyperlipidemia, atrial fibrillation on Coumadin, see chart, GERD, last A1c 4.7, who [place] [facility] due to accidental overdose on glipizide.?? Patient was admitted to [facility] for hypoglycemia, secondary to glipizide side effect, despite receiving glucose tablets, IV dextrose, his blood sugars remained in the low 60s, was then given octreotide, his blood sugars improved, mentation remained intact, blood sugars now remain the 150s. I had a detailed discussion with patient about being careful about which medications he takes, he should take all his medications to his primary care provider next week and go over all medications in detail, advised him to discard glipizide indefinitely, he is not on any diabetic medications as his A1c is 4.7, continue to monitor blood sugars at least 3 times a day, went over hypoglycemia protocol in detail he voiced understanding, all questions answered, agreed to proceed. If any blood sugar less than 60 go to emergency room or call 911. In terms of patient's acute on chronic hyponatremia, likely beers [place] grant, likely a combination of also torsemide. His serum sodium improved to 128, remained alert oriented x3, advised to discontinue alcohol consumption on discharge, resume torsemide on Monday. Patient was also found to have hypokalemia, hypomagnesemia, likely secondary to beers [place] grant, advised to abstain from alcohol consumption, prescribed potassium and magnesium replacement for the next 5 days Physical Exam Const: COMMON NORMALS: no acute distress and patient oriented x3 Resp: COMMON NORMALS: normal respiratory effort, No retractions, No use of accessory muscles and clear to auscultation bilaterally AUSCULTATION: clear to auscultation bilaterally Cardio: COMMON NORMALS: regular rate, regular rhythm, S1 normal heart sound present and S2 normal heart sound present RATE: regular rate RHYTHM: regular rhythm HEART SOUNDS: S1 normal heart sound present and S2 normal heart sound present GI: COMMON NORMALS: Normal to inspection, nondistended, normoactive bowel sounds present, non-tender and no masses Extremity: COMMON NORMALS: no pedal edema Neuro: COMMON NORMALS: patient oriented x3 Psych: COMMON NORMALS: mental status grossly normal Discharge Data Studies Completed and Pending Completed Studies During Hospitalization Category Date Time Status XR chest 1V portable [id number] Stat Exams 08/18/22 16:13 Completed Radiology Impressions Chest X-Ray 08/18/22 16:13 IMPRESSION: No acute findings. Laboratory Results WBC 5.5 10^3/uL (4.0-10.0) 08/19/22 04:00 RBC 3.79 10^6/uL (4.1-5.3) L 08/19/22 04:00 Hgb 11.1 g/dL (11.7-16.6) L 08/19/22 04:00 Hct 33.2 % (42.0-52.0) L 08/19/22 04:00 MCV 87.6 fl (80-94) 08/19/22 04:00 MCH 29.3 pg (28.0-34.0) 08/19/22 04:00 MCHC 33.4 g/dL (30.0-36.0) 08/19/22 04:00 RDW 14.3 % (12.1-15.1) 08/19/22 04:00 Plt Count 220 10^3/cmm (130-400) 08/19/22 04:00 MPV 10.0 fL (7.4-10.4) 08/19/22 04:00 Neut % (Auto) 68.8 % 08/19/22 04:00 Lymph % (Auto) 9.5 % 08/19/22 04:00 [place] % (Auto) 19.5 % 08/19/22 04:00 Eos % (Auto) 1.3 % 08/19/22 04:00 Baso % (Auto) 0.4 % 08/19/22 04:00 Neut # (Auto) 3.79 10^3/uL (1.8-7.7) 08/19/22 04:00 Lymph # (Auto) 0.5 10^3/uL (0.8-4.8) L 08/19/22 04:00 [place] # (Auto) 1.1 10^3/uL (0.2-0.9) H 08/19/22 04:00 Eos # (Auto) 0.1 10^3/uL (0.0-0.8) 08/19/22 04:00 Baso # (Auto) 0.0 10^3/uL (0.0-0.1) 08/19/22 04:00 Nucleated RBC % (auto) 0 % 08/19/22 04:00 Nucleated RBCs # 0.0 /100WBC 08/19/22 04:00 Sodium 128 mmol/L (136-145) L 08/19/22 04:00 Potassium 3.3 mmol/L (3.5-5.1) L 08/19/22 04:00 Chloride 85 mmol/L (98-107) L 08/19/22 04:00 Carbon Dioxide 31 mmol/L (22-29) H 08/19/22 04:00 Anion Gap 15.3 (5-19) 08/19/22 04:00 BUN 13 mg/dL (8-23) 08/19/22 04:00 Creatinine 0.8 mg/dL (0.7-1.2) 08/19/22 04:00 GFR Calculation 96.7 mL/min (90-130) 08/19/22 04:00 Glucose 156 mg/dL (65-115) H 08/19/22 04:00 POC Glucose 116 mg/dL (70-110) H 08/19/22 10:50 Estimat Average Glucose 94 08/18/22 16:21 Hemoglobin A1c 4.9 % (4.0-6.0) 08/18/22 16:21 Calculated Osmolality 269 mOsm/kg (285-295) L 08/19/22 04:00 Lactic Acid 1.2 mmol/L (0.5-2.2) 08/18/22 19:44 Calcium 7.5 mg/dL (8.5-10.5) L 08/19/22 04:00 Phosphorus 2.8 mg/dL (2.5-4.5) 08/19/22 04:00 Magnesium 0.9 mg/dL (1.7-2.3) L 08/19/22 04:00 Total Bilirubin 0.6 mg/dL (0.15-1.2) 08/19/22 04:00 AST 24 U/L (0-40) 08/19/22 04:00 ALT 15 U/L (0-41) 08/19/22 04:00 Alkaline Phosphatase 85 U/L (40-130) 08/19/22 04:00 Troponin T Baseline 21 ng/L (0-15) H 08/18/22 16:21 Troponin T 120 Minute 19.14 ng/L (0-15) H 08/18/22 18:37 Delta Troponin T -1.86 ABS# (0-10) L 08/18/22 18:37 Troponin T Hi Sens 6Hr 23.74 ng/L (0-15) H 08/18/22 22:04 Troponin T Hi Sens 6Hr Delta 2.74 ng/L (0-12) 08/18/22 22:04 NT-Pro-B Natriuret Pep 975 pg/mL (0-125) H 08/18/22 18:37 Total Protein 6.3 g/dL (6.6-8.7) L 08/19/22 04:00 Albumin 3.2 g/dL (3.5-5.2) L 08/19/22 04:00 Globulin 3.1 g/dL (1.3-4.6) 08/19/22 04:00 Triglycerides 55 mg/dL (0-150) 08/18/22 18:37 Cholesterol 222 mg/dL (0-200) H 08/18/22 18:37 LDL Cholesterol, Calc 113 mg/dL (50-129) 08/18/22 18:37 HDL Cholesterol 98 mg/dL (60-100) 08/18/22 18:37 LDL/HDL Ratio 1.15 RATIO (0.00-3.22) 08/18/22 18:37 Cholesterol/HDL Ratio 2.27 mg/dL (1.0-5.00) 08/18/22 18:37 Lipase 48 U/L (13-60) 08/18/22 16:21 Procalcitonin 0.04 ng/mL (0-0.5) 08/18/22 18:37 TSH 1.74 uIU/mL (0.27-4.20) 08/18/22 18:37 Urine Color Yellow (Yellow) 08/18/22 17:35 Urine Appearance Clear (CLEAR) 08/18/22 17:35 Urine pH 7 (5-7) 08/18/22 17:35 Ur Specific [place] 1.015 (1.005-1.030) 08/18/22 17:35 Urine Protein 1+ (Negative) H 08/18/22 17:35 Urine Glucose (UA) Norm (Normal) 08/18/22 17:35 Urine Ketones 1+ (Negative) H 08/18/22 17:35 Urine Blood Neg (Negative) 08/18/22 17:35 Urine Nitrate Negative (Negative) 08/18/22 17:35 Urine Bilirubin Neg (Negative) 08/18/22 17:35 Urine Urobilinogen Norm mg/dL (Negative) 08/18/22 17:35 Ur Leukocyte Esterase Negative (Negative) 08/18/22 17:35 Urine RBC None /hpf (0-2) 08/18/22 17:35 Urine WBC None /hpf (0-5) 08/18/22 17:35 Ur Squamous Epith Cells 0-4 /hpf (0-5) H 08/18/22 17:35 Amorphous Sediment Not Reportable 08/18/22 17:35 Urine Bacteria None /hpf (NONE) 08/18/22 17:35 Vitals Last Vital Signs Temp 98.0 F 08/19/22 08:00 Pulse 78 08/19/22 08:56 Resp 15 08/19/22 08:00 BP 139/76 08/19/22 08:00 Pulse Ox 96 08/19/22 08:56 O2 Del Method 08/19/22 08:56 O2 Flow Rate 0.5 08/19/22 08:56 Discharge Plan Discharge Patient Disposition: Home Health Service Condition: Stable Prescriptions: New magnesium L-lactate [Magtab] 84 mg Tablet Extended Release 84 mg PO DAILY 5 Days Qty: 5 0RF potassium chloride [Klor-Con M20] 20 mEq tablet,ER particles/crystals 20 meq PO DAILY 5 Days Qty: 5 0RF Continued albuterol sulfate 2.5 mg /3 mL (0.083 %) solution for nebulization 2.5 mg inhalation QID PRN (Reason: shortness of breath or wheezing) Qty: 180 1RF nitroglycerin [Nitrostat] 0.4 mg tablet, sublingual 0.4 mg SUBLINGUAL Q5M PRN (Reason: CHEST PAINS) Qty: 30 0RF Rx Instructions: do not exceed 3 doses per episode triamcinolone acetonide 0.1 % lotion See Rx Instructions .ROUTE .COMPLEX Qty: 60 0RF Dose Instruction: APPLY TO AFFECTED AREA TOPICALLY TWICE DAILY Rx Instructions: APPLY TO AFFECTED AREA TOPICALLY TWICE DAILY PRN warfarin 5 mg tablet See Rx Instructions .ROUTE .COMPLEX Qty: 108 0RF Dose Instruction: TAKE ONE TABLET BY MOUTH ON MONDAY, MONDAY AND MONDAY. TAKE ONE AND ONE-HALF TABLETS ON MONDAY, MONDAY, AND MONDAY Rx Instructions: TAKE ONE TABLET (5MG) BY MOUTH ON MONDAY, MONDAY AND MONDAY IN THE EVENING. TAKE ONE AND ONE-HALF (7.5MG) TABLETS ON MONDAY, MONDAY, AND MONDAY (DME) blood sugar diagnostic Strip MISCELLANEOUS latanoprost 0.005 % drops 1 drp ophthalmic (eye) QPM aspirin [Adult Low Dose Aspirin] 81 mg tablet,delayed release (DR/EC) 81 mg PO QAM tamsulosin 0.4 mg capsule 0.4 mg PO BID diltiazem HCl [Taztia XT] 120 mg capsule,extended release 24 hr 120 mg PO BEDTIME hydralazine 100 mg tablet 100 mg PO TID@06,, metoprolol succinate 25 mg tablet extended release 24 hr 12.5 mg PO QAM lisinopril 40 mg tablet 40 mg PO QAM Spiriva with HandiHaler 18 mcg capsule, w/inhalation device 1 cap INHALATION DAILY PRN (Reason: unknown) Rx Instructions: puncture 1 cap using device; one dose = 2 inhalations pantoprazole 40 mg tablet,delayed release (DR/EC) 40 mg PO BID Held torsemide 10 mg tablet 10 mg PO BID Qty: 180 0RF Hold Instructions: Resume on 08/21/22. Discharge Orders: Discharge Order (Routine); Ordered 08/19/22 Ordered By: Josh Wei Referrals: [facility] ([facility]) [Outside] Chantelle Vides FNP [Primary Care Provider] - 08/23/22 11:00 am Discharge Diet: Cardiac Discharge Activity: Resume usual activity Patient Instructions: Opioid Safety Assessment: - I have advised patient to stay off taking glipizide, and throw out all his glipizide tablets -Bring all his medications to his primary care physician, and go over all medications in detail -Hold torsemide until Monday -Have your primary care fire monitor serum sodium, serum potassium, serum magnesium in 1 week -Please abstain from any alcohol consumption -Please monitor blood sugars as outpatient -If you become hypoglycemic, eat a hard candy or drink or juice and go to emergency room, Discharge Attestations Time Spent in Discharge Care*: less than 30 min Quality Metrics Clinical Quality Measures [ No reported AMI, CVA or VTE this stay] Coding Level of Care Code Acute Chg FW DC note Diagnoses Adverse effect of glipizide T38.3X5A Hypoglycemia E16.2 Chronic hyponatremia E87.1 CAD (coronary artery disease) I25.119 Coronary Disease-Associated Artery/Lesion type: [place] artery [place] vs. 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
[2022-08-19 11:53] VITALS: BP 158/89; PULSE 53; RESP 16; TEMP 36.6; O2SAT 98
[2022-08-19] MEDS: magnesium lactate 84 mg Tablet PO (13:00)
[2022-08-19 14:55] VITALS: BP 158/89; PULSE 53; RESP 16; TEMP 36.6; O2SAT 98
== END 2022-08-19 14:56 | disposition home health service (06) ==
LOC: ER 17:04 → MEDSURG 21:46
PROVIDERS: Emergency Medicine; Admitting Provider Family Medicine; Emergency Provider Family Medicine; PCP Nurse Practitioner Family; Visit Provider Family Medicine
DX: E11.649 Type 2 diabetes mellitus with hypoglycemia without coma (principal); T38.3X5A Adverse effect of insulin and oral hypoglycemic [antidiabetic] drugs, initial encounter; E87.1 Hypo-osmolality and hyponatremia; I25.119 Atherosclerotic heart disease of native coronary artery with unspecified angina pectoris; I10 Essential (primary) hypertension; F10.10 Alcohol abuse, uncomplicated; J44.9 Chronic obstructive pulmonary disease, unspecified; I65.23 Occlusion and stenosis of bilateral carotid arteries; Z79.01 Long term (current) use of anticoagulants; N40.1 Benign prostatic hyperplasia with lower urinary tract symptoms; N13.8 Other obstructive and reflux uropathy; E66.9 Obesity, unspecified; Z68.35 Body mass index [BMI] 35.0-35.9, adult; Z95.5 Presence of coronary angioplasty implant and graft; F17.210 Nicotine dependence, cigarettes, uncomplicated; I48.91 Unspecified atrial fibrillation
CPT/HCPCS: 36415; 36416; 71045; 80053; 80061; 81001; 82962; 83036; 83605; 83690; 83735; 83880; 84100; 84145; 84443; 84484; 85025; 93005; 94664; 96361; 96365; 96366; 96372; 96375; 99285; G0378; J1650; J2354; J3475

== ENCOUNTER → 2022-08-23 11:24 | Outpatient (BNVA) | payer MEDICARE, MEDICAID, SELFPAY | PROVIDERS: PCP Nurse Practitioner Family; Visit Provider Nurse Practitioner Family | DX: D64.9 Anemia, unspecified (principal); E83.42 Hypomagnesemia; E87.1 Hypo-osmolality and hyponatremia; E16.2 Hypoglycemia, unspecified | CPT/HCPCS: 80053; 83540; 83735; 85025 ==

== ENCOUNTER → 2022-08-30 10:19 | Outpatient (BNVA) | payer MEDICARE, MEDICAID, SELFPAY | PROVIDERS: PCP Nurse Practitioner Family; Visit Provider Nurse Practitioner Family | DX: D64.9 Anemia, unspecified (principal); M10.9 Gout, unspecified | CPT/HCPCS: 83540; 84550 ==

== ENCOUNTER → 2022-10-07 10:06 | Outpatient (BNVA) | payer MEDICARE, MEDICAID, SELFPAY | PROVIDERS: PCP Nurse Practitioner Family; Visit Provider Internal Medicine Cardiovascular Disease | DX: I48.91 Unspecified atrial fibrillation (principal); Z79.01 Long term (current) use of anticoagulants; T38.3X5A Adverse effect of insulin and oral hypoglycemic [antidiabetic] drugs, initial encounter; M10.9 Gout, unspecified; F10.10 Alcohol abuse, uncomplicated; E87.1 Hypo-osmolality and hyponatremia; K70.0 Alcoholic fatty liver; I25.119 Atherosclerotic heart disease of native coronary artery with unspecified angina pectoris; J44.9 Chronic obstructive pulmonary disease, unspecified; I65.23 Occlusion and stenosis of bilateral carotid arteries; E11.649 Type 2 diabetes mellitus with hypoglycemia without coma; I12.9 Hypertensive chronic kidney disease with stage 1 through stage 4 chronic kidney disease, or unspecified chronic kidney disease; E11.22 Type 2 diabetes mellitus with diabetic chronic kidney disease; N18.9 Chronic kidney disease, unspecified; F17.200 Nicotine dependence, unspecified, uncomplicated | CPT/HCPCS: 99214 ==

== ENCOUNTER → 2023-01-20 11:38 | Outpatient (BNVA) | payer MEDICARE, MEDICAID, SELFPAY | PROVIDERS: PCP Nurse Practitioner Family; Visit Provider Nurse Practitioner Family | DX: I65.23 Occlusion and stenosis of bilateral carotid arteries (principal); I10 Essential (primary) hypertension; M10.9 Gout, unspecified; Z79.01 Long term (current) use of anticoagulants | CPT/HCPCS: 80053; 80061; 83735; 84550; 85025 ==

== ENCOUNTER → 2023-02-23 10:36 | Outpatient (BNVA) | payer MEDICARE, MEDICAID, SELFPAY | PROVIDERS: PCP Nurse Practitioner Family; Visit Provider Nurse Practitioner Family | DX: M10.9 Gout, unspecified (principal); N18.9 Chronic kidney disease, unspecified; E83.42 Hypomagnesemia | CPT/HCPCS: 83540; 83735; 84550 ==

== ENCOUNTER → 2023-04-10 13:28 | Outpatient (BNVA) | payer MEDICARE, MEDICAID, SELFPAY | PROVIDERS: PCP Nurse Practitioner Family; Visit Provider Nurse Practitioner Family | DX: I25.119 Atherosclerotic heart disease of native coronary artery with unspecified angina pectoris (principal); I10 Essential (primary) hypertension; I65.23 Occlusion and stenosis of bilateral carotid arteries; I48.91 Unspecified atrial fibrillation; Z79.01 Long term (current) use of anticoagulants; Z79.82 Long term (current) use of aspirin; F17.200 Nicotine dependence, unspecified, uncomplicated | CPT/HCPCS: 36415; 80048; 83880; 99214 ==

== ENCOUNTER → 2023-04-10 13:28 | Outpatient (BNVA) | payer MEDICARE, MEDICAID, SELFPAY | PROVIDERS: PCP Nurse Practitioner Family; Visit Provider Nurse Practitioner Family | DX: I65.23 Occlusion and stenosis of bilateral carotid arteries (principal); I48.91 Unspecified atrial fibrillation; I10 Essential (primary) hypertension; I25.10 Atherosclerotic heart disease of native coronary artery without angina pectoris; I25.119 Atherosclerotic heart disease of native coronary artery with unspecified angina pectoris | CPT/HCPCS: 36415; 80048; 83880 ==

== ENCOUNTER → 2023-05-09 10:59 | Outpatient (BNVA) | payer MEDICARE, MEDICAID, SELFPAY | PROVIDERS: PCP Nurse Practitioner Family; Visit Provider Nurse Practitioner Family | DX: M10.9 Gout, unspecified (principal); E78.5 Hyperlipidemia, unspecified; I10 Essential (primary) hypertension; R53.83 Other fatigue | CPT/HCPCS: 80053; 80061; 84550; 85025 ==

== ENCOUNTER → 2023-09-19 10:07 | Outpatient (BNVA) | payer MEDICARE, MEDICAID, SELFPAY | PROVIDERS: PCP Nurse Practitioner Family; Visit Provider Nurse Practitioner Family | DX: M10.9 Gout, unspecified (principal); I65.23 Occlusion and stenosis of bilateral carotid arteries; I10 Essential (primary) hypertension; R53.83 Other fatigue | CPT/HCPCS: 80053; 80061; 84550; 85025 ==

== ENCOUNTER → 2023-10-09 13:28 | Outpatient (BNVA) | payer MEDICARE, MEDICAID, SELFPAY | PROVIDERS: PCP Nurse Practitioner Family; Visit Provider Internal Medicine | DX: I25.119 Atherosclerotic heart disease of native coronary artery with unspecified angina pectoris (principal); I73.9 Peripheral vascular disease, unspecified; E66.9 Obesity, unspecified; I48.91 Unspecified atrial fibrillation; Z79.01 Long term (current) use of anticoagulants; I42.9 Cardiomyopathy, unspecified; I10 Essential (primary) hypertension; I65.23 Occlusion and stenosis of bilateral carotid arteries; Z68.35 Body mass index [BMI] 35.0-35.9, adult; F17.200 Nicotine dependence, unspecified, uncomplicated | CPT/HCPCS: 99214 ==

== ENCOUNTER → 2024-04-10 13:59 | Outpatient (BNVA) | payer MEDICARE, MEDICAID, SELFPAY | PROVIDERS: PCP Family Medicine; Visit Provider Internal Medicine | DX: I25.119 Atherosclerotic heart disease of native coronary artery with unspecified angina pectoris (principal); E66.9 Obesity, unspecified; Z68.34 Body mass index [BMI] 34.0-34.9, adult; I48.91 Unspecified atrial fibrillation; Z79.01 Long term (current) use of anticoagulants; I42.9 Cardiomyopathy, unspecified; I65.23 Occlusion and stenosis of bilateral carotid arteries; I12.9 Hypertensive chronic kidney disease with stage 1 through stage 4 chronic kidney disease, or unspecified chronic kidney disease; N18.9 Chronic kidney disease, unspecified; E11.22 Type 2 diabetes mellitus with diabetic chronic kidney disease; Z87.891 Personal history of nicotine dependence; E11.51 Type 2 diabetes mellitus with diabetic peripheral angiopathy without gangrene | CPT/HCPCS: 99214 ==

== ENCOUNTER 2024-05-01 09:02 | Outpatient (CLI) | payer MEDICARE, MEDICAID, SELFPAY ==
--- NOTE | 2024-05-01 10:30 | USCV_ITS ---
Alberto Trujillo Age: 68 Gender: M : 1955 Exam Date: 05/01/2024 10:02 Ordering Phys: Davin Gonzalez M.D ([email or web address]) Technologist: [place] [facility] [place]: stenosis, previous bliateral cea's Risk Factors: Previous Vascular Surgery: Right Brachial BP: / Left Brachial BP: / Right Left Velocity (cm/s) Spectral Plaque Velocity (cm/s) Spectral Plaque Syst/Diast Broadening Syst/Diast Broadening 105.10/12.50 Prox CCA 61.50 / 19.30 68.30/ 14.20 Mid CCA 48.20 / 16.00 66.50/ 16.10 Distal CCA 46.60 / 17.60 49.10/ 15.20 Prox ICA 80.30 / 14.10 73.10/ 18.50 Mid ICA 72.70 / 19.80 59.40/ 14.40 Distal ICA 96.40 / 24.70 60.70 ECA 96.60 1.10 ICA/CCA 2.10 Antegrade Vertebral Antegrade 45.80/ 17.10 cm/s 38.50/ 10.90 cm/s Tri Subclavian Bi 111.7 106.9 0 0 CONCLUSIONS Right ICA stenosis <50%. Mild atheromatous plaque right carotid bulb/ICA. Left ICA stenosis <50%. Moderate atheromatous plaque left carotid bulb/ICA. Normal antegrade Doppler flow noted in the right vertebral artery. Normal antegrade Doppler flow noted in the left vertebral artery. Rafal Harp MD (Electronically Signed) Final Date: 01 May 2024 16:39 S
--- NOTE | 2024-05-01 11:00 | USCV_ITS ---
Alberto Trujillo Age: 68 Gender: M : 1955 Exam Date: 05/01/2024 10:16 Ordering Phys: Davin Gonzalez M.D ([email or web address]) Technologist: [place] [facility] [place]ication: pvd Risk Factors: Previous Vascular Surgery: RIGHT LEFT BP: 143.0 / BP: 150.0/ 0 0 Waveform Velocity (cm/s) Velocity (cm/s) Waveform Triphasic 97.4 Iliac Prox 109.7 Triphasic Triphasic 104.1 Iliac Mid 148.4 Triphasic Triphasic 84.9 Iliac Distal 152.0 Triphasic Triphasic 137.0 CODE ENFORCEMENT INSPECTOR 151.0 Triphasic Triphasic 184.0 SFA Prox 120.0 Triphasic Monophasic 77.0 SFA Mid 120.0 Triphasic Monophasic 72.0 SFA Dist 160.0 Triphasic Monophasic 33.0 POP 43.0 Monophasic Monophasic 41.0 HEAD ATHLETIC TRAINER 68.0 Monophasic Monophasic 37.0 DPA ARNOL 0.9 0.8 FINDINGS Resting ARNOL of 0.8 on the right side and 0.9 on the left side Moderate diffuse irregular plaques in the iliac, femoral and popliteal arteries on both sides. Monophasic and continuous Doppler waveforms in the infrapopliteal vessels bilaterally No dopplerable signals in the left dorsalis pedis artery CONCLUSIONS 1. Abnormal resting ABIs bilaterally suggesting mild peripheral artery disease 2. Moderate diffuse irregular plaques in the iliac, femoral and popliteal arteries bilaterally 3. Features of collateral filling in the infrapopliteal vessels bilaterally. 4. Possible total occlusion of the dorsalis pedis artery on the left side. No similar previous studies are available for comparison. Consider CTA/peripheral angiogram to better evaluate peripheral arteries Dr Toby Murcia MD [facility] (Electronically Signed) Final Date: 07 May 2024 16:58 S
== END 2024-05-01 09:03 | disposition home or self-care (01) ==
LOC: RAD 09:02
PROVIDERS: PCP Family Medicine; Visit Provider Internal Medicine
DX: I65.23 Occlusion and stenosis of bilateral carotid arteries (principal); I70.8 Atherosclerosis of other arteries; I70.213 Atherosclerosis of native arteries of extremities with intermittent claudication, bilateral legs; R93.6 Abnormal findings on diagnostic imaging of limbs; R06.02 Shortness of breath; M79.604 Pain in right leg; M79.605 Pain in left leg
CPT/HCPCS: 93306; 93880; 93925

== ENCOUNTER → 2024-10-09 14:57 | Outpatient (BNVA) | payer MEDICARE, MEDICAID, SELFPAY | PROVIDERS: PCP Family Medicine; Visit Provider Internal Medicine | DX: I73.9 Peripheral vascular disease, unspecified (principal); I25.10 Atherosclerotic heart disease of native coronary artery without angina pectoris; E66.9 Obesity, unspecified; I48.91 Unspecified atrial fibrillation; Z79.01 Long term (current) use of anticoagulants; I42.9 Cardiomyopathy, unspecified; I65.23 Occlusion and stenosis of bilateral carotid arteries; I12.9 Hypertensive chronic kidney disease with stage 1 through stage 4 chronic kidney disease, or unspecified chronic kidney disease; E11.22 Type 2 diabetes mellitus with diabetic chronic kidney disease; N18.9 Chronic kidney disease, unspecified; Z87.891 Personal history of nicotine dependence; Z68.35 Body mass index [BMI] 35.0-35.9, adult | CPT/HCPCS: 99214 ==

== ENCOUNTER 2024-10-24 13:23 | Outpatient (CLI) | payer MEDICARE, MEDICAID, SELFPAY ==
[2024-10-24] MEDS: iohexol 350 mg/mL 500 mL Btl (per mL) IV (13:52)
--- NOTE | 2024-10-24 14:00 | CTR_ITS ---
PROCEDURE INFORMATION: Exam: CTA Abdominal Aorta and Bilateral Lower Extremities (Run-off) With Contrast Exam date and time: 10/24/2024 1:49 PM Age: 69 years old Clinical indication: Other: Pad TECHNIQUE: Imaging protocol: Computed tomographic angiography of the of the abdominal aorta, pelvis and bilateral lower extremities with contrast. 3D rendering (Not supervised by radiologist): MIP and/or 3D reconstructed images were created by the technologist. Radiation optimization: All CT scans at this facility use at least one of these dose optimization techniques: automated exposure control; mA and/or kV adjustment per patient size (includes targeted exams where dose is matched to clinical indication); or iterative reconstruction. Contrast material: OMNIPAQUE 350; Contrast volume: 125 ml; Contrast route: INTRAVENOUS (IV); COMPARISON: CT angio chest PE protcl [id number] 08/05/2022 1:46 PM RADIATION DOSE METRICS: Total DLP (mGy-cm): 1091.95 FINDINGS: Aorta: Focal aneurysm of the infrarenal abdominal aorta which measures about 4 cm in greatest AP dimension. No aortic dissection. Celiac trunk and mesenteric arteries: No occlusion or hemodynamically significant stenosis. Renal arteries: No occlusion or hemodynamically significant stenosis. Right iliac arteries: No occlusion or hemodynamically significant stenosis. Right femoral/popliteal arteries: Mild stenosis of the right common femoral artery secondary to calcified plaque. No hemodynamically significant stenoses in the right femoral artery. High-grade stenosis in the infrapatellar right popliteal artery secondary to calcified plaque. Right infrapopliteal arteries: Diffuse mural calcifications throughout the tibial arteries with multifocal moderate to severe stenoses throughout. The dominant vessel to the right foot is the right posterior tibial artery. Left iliac arteries: No occlusion or significant stenosis. Left femoral/popliteal arteries: The left common femoral artery is patent. There is a moderate stenosis in the mid left femoral artery secondary to a prominent endophytic calcified plaque. There is total chronic occlusion of the left popliteal artery. Left infrapopliteal arteries: There is reconstituted flow in the left tibial arteries. There are multifocal stenoses throughout the left tibial arteries with high-grade lesions and near occlusions in the left anterior tibial artery and left peroneal artery. The dominant vessel to the left foot is the left posterior tibial artery. Veins: There is reflux of IV contrast into the IVC and hepatic veins. Lungs: The lung bases are clear. Heart: Moderate cardiomegaly. Dilated right and left atrium. Liver: Hepatic steatosis. Stable 2.2 cm cyst in the right lobe of the liver. There are other small hypodense lesions in the right lobe of the liver which are too small to accurately characterize Diaphragm: Small hiatus hernia. Gallbladder and biliary ducts: Unremarkable. No calcified stones. No ductal dilation. Pancreas: The pancreas is normal in appearance. No evidence of pancreatic ductal dilatation. Spleen: Multiple old calcified granulomas within the spleen. Adrenal glands: 2 cm fatty nodule in the right adrenal gland likely representing a benign myelolipoma. Kidneys and ureters: The kidneys are normal in appearance. There are small simple appearing bilateral renal cortical cysts. No evidence of hydronephrosis or hydroureter. No nephroureteral calculi are identified. Stomach and bowel: The small bowel loops are not thickened and are nondilated. Possible solid mass at the rectosigmoid junction measuring about 2.8 cm (series 6, image 308 and series 14, image 63). Appendix: No evidence of appendicitis. Urinary bladder: The urinary bladder is normal in appearance. Reproductive: Unremarkable as visualized. Intraperitoneal space: Unremarkable. No free air. No significant fluid collection. Lymph nodes: No lymphadenopathy. Bones/joints: Bilateral hip arthroplasty. Beam hardening artifacts from the hip arthroplasties partially obscures the deep pelvic structures. Severe chronic degenerative changes at L4-L5. Soft tissues: Unremarkable. CT/CT angio abd aorta runof [id number] IMPRESSION: 1. 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 There is reconstituted flow in the left tibial arteries but there is significant left tibial artery disease. The dominant vessel to the left foot is the left posterior tibial artery. 2. Moderate stenosis in the mid left femoral artery secondary to calcified plaque. 3. 4 cm infrarenal abdominal aortic aneurysm. 4. High-grade stenosis in the infrapatellar right popliteal artery secondary to calcified plaque. There is diffuse three-vessel tibial artery disease in the right lower leg with multifocal high-grade stenoses suggested. The dominant vessel to the right foot is the right posterior tibial artery. 5. Moderate cardiomegaly with dilated right and left atrium. There is reflux of contrast into the hepatic veins and IVC suggesting elevated right heart pressure/dysfunction. 6. Possible solid mass at the rectosigmoid junction measuring up to 2.8 cm (series 6, image 308 and series 14, image 63). 7. Other incidental findings as above.
== END 2024-10-24 13:24 | disposition home or self-care (01) ==
LOC: RAD 13:23
PROVIDERS: PCP Family Medicine; Visit Provider Internal Medicine
DX: I73.9 Peripheral vascular disease, unspecified (principal); I71.43 Infrarenal abdominal aortic aneurysm, without rupture; D73.89 Other diseases of spleen; D35.01 Benign neoplasm of right adrenal gland; Q61.02 Congenital multiple renal cysts; R93.3 Abnormal findings on diagnostic imaging of other parts of digestive tract; Z96.643 Presence of artificial hip joint, bilateral; M51.360 Other intervertebral disc degeneration, lumbar region with discogenic back pain only
CPT/HCPCS: 75635

== ENCOUNTER 2025-01-29 14:28 | Outpatient (CLI) | payer MEDICARE, MEDICAID, SELFPAY ==
--- NOTE | 2025-01-29 14:43 | CT_ITS ---
WS: [id number] CT abdomen pelvis w con* [id number] REASON FOR EXAM: NEOPLASM OF RECTOSIGMOID JUNCTION IV CONTRAST ADMINISTERED: 100 mL of Omnipaque 350 TECHNIQUE: Following administration of intravenous and oral contrast multiple 5 mm axial images were obtained through the abdomen and pelvis with coronal and sagittal reconstructions. TOTAL EXAM DLP: 714.[address] scans at [facility] use at least one of these dose optimization techniques: automated exposure control; mA and/or kV adjustment per patient size (includes targeted exams where dose is matched to clinical indication); or iterative reconstruction. FINDINGS: Four-chamber cardiomegaly. ABDOMEN: Areas of low attenuation in the right lobe of the liver the largest with a slightly lobulated contour and a diameter of 2 cm. These have the appearance of simple bile cysts. Calcified granulomas in the spleen. Normal pancreas and contracted gallbladder without calculi. Benign 2 cm homogeneous fat density mass of the right adrenal. Multiple renal cysts bilaterally. No adenopathy, free fluid, or focal fluid collection. Abdominal aortic aneurysm, partially thrombosed, 4 cm maximum diameter. PELVIS: No free fluid or focal fluid collection. Intraluminal rectal mass (as noted on the previous angiographic CT scan of 10/24/2024). Maximum dimensions 2.8 x 2.7 x 2.5 cm. Denis images series 4 image 64, series 6 image 21, and series 7 image 39. No adenopathy is identified. There is mural involvement however no definite transmural involvement is identified. Mass relatively unchanged compared to the previous examination. BONE: Moderate degenerative spondylosis of the lumbar spine with significant spondylitic listhesis at L4-L5. Bilateral total hip arthroplasties. CT/CT abdomen pelvis w con* [id number] IMPRESSION: Benign abnormalities of the liver, right adrenal, and kidneys as above. Rectal mass as above. Presumed carcinoma until proven otherwise.
[2025-01-29] MEDS: iohexol 350 mg/mL 500 mL Btl (per mL) IV (16:19)
[2025-01-29] MEDS: iohexol 350 mg/mL 500 mL Btl (per mL) PO (16:19)
== END 2025-01-29 14:29 | disposition home or self-care (01) ==
LOC: RAD 14:33
PROVIDERS: PCP Family Medicine; Visit Provider Family Medicine
DX: D49.0 Neoplasm of unspecified behavior of digestive system (principal); R93.2 Abnormal findings on diagnostic imaging of liver and biliary tract; D73.89 Other diseases of spleen; R93.3 Abnormal findings on diagnostic imaging of other parts of digestive tract; E27.8 Other specified disorders of adrenal gland; N28.1 Cyst of kidney, acquired; I71.40 Abdominal aortic aneurysm, without rupture, unspecified; R93.89 Abnormal findings on diagnostic imaging of other specified body structures; M47.896 Other spondylosis, lumbar region; M43.16 Spondylolisthesis, lumbar region; Z96.643 Presence of artificial hip joint, bilateral
CPT/HCPCS: 74177

== ENCOUNTER → 2025-02-17 08:39 | Outpatient (BNVA) | payer MEDICARE, MEDICAID, SELFPAY | PROVIDERS: PCP Family Medicine; Visit Provider Student in an Organized Health Care Education/Training Program | DX: Z12.11 Encounter for screening for malignant neoplasm of colon (principal) | CPT/HCPCS: 99024; 99204 ==

== ENCOUNTER → 2025-03-05 10:22 | Outpatient (BNVA) | payer MEDICARE, MEDICAID, SELFPAY | PROVIDERS: PCP Family Medicine; Visit Provider Family Medicine | DX: Z01.818 Encounter for other preprocedural examination (principal) | CPT/HCPCS: 93005 ==

== ENCOUNTER 2025-03-25 11:32 | Day surgery (SDC) | payer MEDICARE, MEDICAID, SELFPAY ==
[2025-03-25 11:50] VITALS: BMI 33.7
[2025-03-25 11:59] VITALS: BP 176/97; PULSE 64; RESP 18; TEMP 36.4; O2SAT 96
[2025-03-25] MEDS: sodium chloride 0.9% 1,000 ML 15 ML IV (12:05)
--- NOTE | 2025-03-25 12:20 | ANES.PREANE2 ---
Pre-Anesthetic Assessment Height/Weight: Height 1.68 m Weight 94.801 kg Temp Pulse Resp BP Pulse Ox O2 Del Method O2 Flow Rate 97.6 F 64 18 176/97 96 Nasal Cannula 2 03/25/25 11:59 03/25/25 11:59 03/25/25 11:59 03/25/25 11:59 03/25/25 11:59 03/25/25 11:59 03/25/25 11:59 Operation Date: 03/25/25 13:00 Proposed Procedures p Colonoscopy [id number] [id number] C20(Not Applicable) - Anthony Navarro MD Familial anesthetic complications: none Was Beta Elayne taken within 24 hours: N/A Was Clonidine taken within 24 hours: N/A Last intake: Intake Last Liquid Date 03/24/25 Last Liquid Time 22:00 Last Solid Date 03/23/25 Social No alcohol and No tobacco extensive history of smoking, and ETOH Exam alert, oriented x 3, clear to auscultation bilaterally and regular rate & rhythm Airway Mallampati: Class II Dentition: full Pulmonary Chronic Obstructive Pulmonary Disease (2 L O2, mod pulm HTN) CV/HEM Coronary Artery Disease, Congestive Heart Failure and Hypertension ECHO 05/01/24 LV systolic function is normal with EF of 55-60% Grossly RV is dilated. RV function is normal Severe biatrial dilation Mild mitral regurgitation Mild tricuspid regurgitation Mild pulmonary hypertension Moderate pulmonary hypertension Mildly dilated ascending aorta with diameter of 3.53cm IVC is dilated No comparison studies are available. CAROTID DOPPLER 05/01/24 Right ICA stenosis <50%. Mild atheromatous plaque right carotid bulb/ICA. Left ICA stenosis <50%. Moderate atheromatous plaque left carotid bulb/ICA. Normal antegrade Doppler flow noted in the right vertebral artery. Normal antegrade Doppler flow noted in the left vertebral artery. CARDIAC CATH 03/05/21 1. There is severe coronary artery disease with severe, heavily calcified proximal to mid LAD stenosis s/p succsessful revascularization with ILSA x 1 after coronary orbital arthrectomy. 2. Mid Left Anterior Descending was treated with a Balloon, Drug Eluting Stent, and Balloon. Chronic Renal Insufficiency GI Gastroesophageal Reflux Disease Neuropsych carotid stenosis Anesthetic Plan ASA status: 4 Anesthesia: MAC Other: Discussed with patient higher risk for complications d/t cardiopulmonary history. Informed him of need to try to minimize administration of anesthetics and that he may experience awareness during procedure. He states he is ok with that and had colonoscopy awake once anyway. Risk of > 500 ml blood loss (7ml/kg in children): No Medications/Allergies Home Medications ?Medication ?Instructions ?Recorded ?Confirmed ?Last Taken ?Type albuterol sulfate 2.5 mg/3 mL 2.5 mg (3 mL) inhalation QID PRN 09/29/20 03/25/25 03/05/21 06:00 Rx (0.083 %) solution for nebulization shortness of breath or wheezing #180 mL blood sugar diagnostic 12/10/21 03/05/25 Unknown History aspirin 81 mg tablet,delayed 81 mg PO QAM 08/05/22 03/20/25 03/25/25 History release (Adult Low Dose Aspirin) latanoprost 0.005 % eye drops 1 drp ophthalmic (eye) QPM 08/05/22 03/20/25 03/24/25 History ferrous gluconate 225 mg (27 mg 225 mg PO DAILY #30 tabs 08/24/22 03/20/25 03/24/25 Rx iron) tablet nitroglycerin 0.4 mg sublingual 0.4 mg sublingual Q5M PRN CHEST 11/30/22 03/25/25 Unknown Rx tablet (Nitrostat) PAINS #30 tabs warfarin 5 mg tablet See Rx Instructions .Route 05/10/23 03/20/25 03/18/25 Rx .COMPLEX #108 tabs colchicine 0.6 mg tablet 0.6 mg PO BID PRN gout #10 tabs 09/19/23 03/25/25 Unknown Rx allopurinol 100 mg tablet 100 mg PO DAILY 03/20/25 03/20/25 03/24/25 History diltiazem HCl 120 mg 120 mg PO BEDTIME 03/20/25 03/20/25 03/24/25 History capsule,extended release 24 hr, controlled hydralazine 100 mg tablet 100 mg PO TID 03/20/25 03/20/25 03/25/25 History lisinopril 40 mg tablet 40 mg PO DAILY 03/20/25 03/20/25 03/24/25 History metoprolol succinate 25 mg 12.5 mg PO DAILY 03/20/25 03/20/25 03/25/25 History tablet,extended release 24 hr sennosides 8.6 mg-docusate sodium 1 tab-cap PO DAILY PRN Constipation 03/20/25 03/20/25 03/20/25 History 50 mg tablet (Senna-S) tamsulosin 0.4 mg capsule 0.4 mg PO BID 03/20/25 03/20/25 03/25/25 History torsemide 10 mg tablet 10 mg PO BID 03/20/25 03/20/25 03/25/25 History triamcinolone acetonide 0.1 % 1 applic topical BID PRN Outbreak 03/20/25 03/25/25 Unknown History lotion triamcinolone acetonide 0.1 % 1 applic topical BID PRN Outbreak 03/20/25 03/25/25 Unknown History topical cream Allergies Allergy/AdvReac Type Severity Reaction Status Date / Time adhesive Allergy ALGY-Rash Verified 03/25/25 12:07 [id number]-YcF Reductase Allergy unknown Verified 03/25/25 12:07 Inhibitor (Pcpuprl-Ndy-Dln Reductase Inhibitor) [facility] Anesthesia Medical History Hyponatremia Abdominal pain BPH (benign prostatic hyperplasia) BPH with obstruction/lower urinary tract symptoms Chronic prostatitis Incomplete emptying of bladder Diabetes mellitus type 2, diet-controlled Diet-controlled type 2 diabetes mellitus Hepatomegaly CAD (coronary artery disease) Peripheral arterial disease Obesity Tobacco abuse CKD (chronic kidney disease) Anticoagulant long-term use Atrial fibrillation Diabetes HTN (hypertension) Cardiomyopathy Alcohol abuse COPD (chronic obstructive pulmonary disease) Dependence on continuous supplemental oxygen Carotid stenosis, bilateral Surgical History S/P hip replacement S/P carotid endarterectomy Hx of heart artery stent S/P PTCA (percutaneous transluminal coronary angioplasty) Family History Mother CAD (coronary artery disease) Diabetes Father , AGE 82 CAD (coronary artery disease) Hypertension Social History Smoking and tobacco/nicotine status: former use of tobacco/nicotine Quit status (tobacco/nicotine): has quit using Former quit date comment: NOV 2019 Alcohol intake: current Alcohol intake frequency: 3 or more drinks per day Alcohol type: beer Substance/Drug Use: never Household members: spouse Marital status: Current occupation: disabled Data Anesthesia Cardiac Studies: Echocardiogram 05/01/24
--- NOTE | 2025-03-25 12:39 | W.PM.OPSFHP ---
Same Day Surgery H&P Indication for Procedure/HPI DATE OF PROCEDURE: March 25, 2025 CHIEF COMPLAINT/INDICATIONFOR SURGICAL PROCEDURE: screening colonoscopy PREOP DIAGNOSIS: screening colonoscopy PLANNED PROCEDURE: Operation Date: 03/25/25 13:00 Proposed Procedures p Colonoscopy [id number] G0105 C20(Not Applicable) - Anthony Navarro MD Medications/Allergies* Home Medications ?Medication ?Instructions ?Recorded ?Confirmed ?Type blood sugar diagnostic 12/10/21 03/05/25 History aspirin 81 mg tablet,delayed 81 mg PO QAM 08/05/22 03/20/25 History release (Adult Low Dose Aspirin) latanoprost 0.005 % eye drops 1 drp ophthalmic (eye) QPM 08/05/22 03/20/25 History allopurinol 100 mg tablet 100 mg PO DAILY 03/20/25 03/20/25 History diltiazem HCl 120 mg 120 mg PO BEDTIME 03/20/25 03/20/25 History capsule,extended release 24 hr, controlled hydralazine 100 mg tablet 100 mg PO TID 03/20/25 03/20/25 History lisinopril 40 mg tablet 40 mg PO DAILY 03/20/25 03/20/25 History metoprolol succinate 25 mg 12.5 mg PO DAILY 03/20/25 03/20/25 History tablet,extended release 24 hr sennosides 8.6 mg-docusate sodium 1 tab-cap PO DAILY PRN Constipation 03/20/25 03/20/25 History 50 mg tablet (Senna-S) tamsulosin 0.4 mg capsule 0.4 mg PO BID 03/20/25 03/20/25 History torsemide 10 mg tablet 10 mg PO BID 03/20/25 03/20/25 History triamcinolone acetonide 0.1 % 1 applic topical BID PRN Outbreak 03/20/25 03/25/25 History lotion triamcinolone acetonide 0.1 % 1 applic topical BID PRN Outbreak 03/20/25 03/25/25 History topical cream Allergies/Adverse Reactions Allergy/AdvReac Type Severity Reaction Status Date / Time adhesive Allergy ALGY-Rash Verified 03/25/25 12:07 Ygqgusc-JFR-XeT Reductase Allergy unknown Verified 03/25/25 12:07 Inhibitor (Xgadhud-Drk-Dnq Reductase Inhibitor) Pertinent History/Comorbid Conditions* Medical History (Updated 01/20/23 @ 14:12 by CARMELA Ordoñez) Hyponatremia Abdominal pain BPH (benign prostatic hyperplasia) BPH with obstruction/lower urinary tract symptoms Chronic prostatitis Incomplete emptying of bladder Diabetes mellitus type 2, diet-controlled Diet-controlled type 2 diabetes mellitus Hepatomegaly CAD (coronary artery disease) Peripheral arterial disease Obesity Tobacco abuse CKD (chronic kidney disease) Anticoagulant long-term use Atrial fibrillation Diabetes HTN (hypertension) Cardiomyopathy Alcohol abuse COPD (chronic obstructive pulmonary disease) Dependence on continuous supplemental oxygen Carotid stenosis, bilateral Surgical History (Updated 12/13/21 @ 00:01 by YULY Honeycutt) S/P hip replacement S/P carotid endarterectomy Hx of heart artery stent S/P PTCA (percutaneous transluminal coronary angioplasty) Family History (Updated 03/25/20 @ 09:11 by Emma Rader RN) Father, AGE 82 Diabetes Mother CAD (coronary artery disease) Mother Father Hypertension Father Social History Smoking and tobacco/nicotine status: former use of tobacco/nicotine Quit status (tobacco/nicotine): has quit using Former quit date comment: NOV 2019 Alcohol intake: current Alcohol intake frequency: 3 or more drinks per day Alcohol type: beer Substance/Drug Use: never Household members: spouse Marital status: Current occupation: disabled Pertinent Exam Findings alert, oriented x 3, clear to auscultation bilaterally, regular rate & rhythm and procedure specific exam findings Abdomen soft, nt, nd Recommendations Risks and benefits of procedure reviewed Surgery/Procedure today Coding Level of Care Code Acute Code for Jihan Rea
[2025-03-25 13:43] VITALS: BP 128/73; PULSE 67; RESP 16; TEMP 36.4; O2SAT 96
--- NOTE | 2025-03-25 14:15 | ANE.PACU2 ---
Inpatient post-anesthesia follow up: Airway intact: Yes Vital signs: Temperature 97.5 F Pulse Rate 67 Respiratory Rate 16 Blood Pressure 128/73 Pulse Oximetry 96 Oxygen Delivery Me thod Nasal Cannula Oxygen Flow Rate 2 Fraction of Inspir ed Oxygen Hydration adequate: Yes Nausea and vomiting: No Pain level: 1 Mental status: Baseline
== END 2025-03-25 14:12 | disposition home or self-care (01) ==
PROVIDERS: PCP Family Medicine; Visit Provider Student in an Organized Health Care Education/Training Program
PROC: 0DJD8ZZ Inspection of Lower Intestinal Tract, Via Natural or Artificial Opening Endoscopic (ICD-10-PCS; CPT 45378; principal; 2025-03-25 13:00)
DX: Z12.11 Encounter for screening for malignant neoplasm of colon (principal); D12.2 Benign neoplasm of ascending colon; D12.8 Benign neoplasm of rectum; I25.10 Atherosclerotic heart disease of native coronary artery without angina pectoris; N18.9 Chronic kidney disease, unspecified; I48.91 Unspecified atrial fibrillation; E11.22 Type 2 diabetes mellitus with diabetic chronic kidney disease; I13.0 Hypertensive heart and chronic kidney disease with heart failure and stage 1 through stage 4 chronic kidney disease, or unspecified chronic kidney disease; I50.9 Heart failure, unspecified; J44.9 Chronic obstructive pulmonary disease, unspecified; Z99.81 Dependence on supplemental oxygen; I27.20 Pulmonary hypertension, unspecified; K21.9 Gastro-esophageal reflux disease without esophagitis; Z79.82 Long term (current) use of aspirin; Z79.01 Long term (current) use of anticoagulants; Z79.899 Other long term (current) drug therapy; Z88.8 Allergy status to other drugs, medicaments and biological substances; Z91.09 Other allergy status, other than to drugs and biological substances; Z95.5 Presence of coronary angioplasty implant and graft; Z87.891 Personal history of nicotine dependence
CPT/HCPCS: 45385; 88305; J2704; J7030

== ENCOUNTER → 2025-04-07 10:39 | Outpatient (BNVA) | payer MEDICARE, MEDICAID, SELFPAY | PROVIDERS: PCP Family Medicine; Visit Provider Student in an Organized Health Care Education/Training Program | DX: Z09 Encounter for follow-up examination after completed treatment for conditions other than malignant neoplasm (principal) | CPT/HCPCS: 99213 ==

== ENCOUNTER → 2025-04-10 12:09 | Outpatient (BNVA) | payer MEDICARE, MEDICAID, SELFPAY | PROVIDERS: PCP Family Medicine; Visit Provider Internal Medicine | DX: I25.10 Atherosclerotic heart disease of native coronary artery without angina pectoris (principal); I73.9 Peripheral vascular disease, unspecified; I48.91 Unspecified atrial fibrillation; Z79.01 Long term (current) use of anticoagulants; Z79.82 Long term (current) use of aspirin; I10 Essential (primary) hypertension; I42.9 Cardiomyopathy, unspecified; I65.23 Occlusion and stenosis of bilateral carotid arteries; E66.9 Obesity, unspecified; Z68.34 Body mass index [BMI] 34.0-34.9, adult; Z95.5 Presence of coronary angioplasty implant and graft; Z87.891 Personal history of nicotine dependence | CPT/HCPCS: 99214 ==